=== PATIENT | male | born 1990 | race American Indian/Alaskan Native ===

== ENCOUNTER 2017-01-26 17:51 | Observation (INO) | payer MEDICAID, OTHER ==
[2017-01-26 17:51] VITALS: BMI 20.6
[2017-01-26 20:16] LABS: ALB/GLOB RATIO 1.6 (1.1-1.8); ALKALINE PHOSPHATASE 43 U/L (38-126); ALT/SGPT 59 U/L (7-56); AST/SGOT 35 U/L (17-59); BILIRUBIN,TOTAL 0.3 mg/dL (0.2-1.3); BLOOD UREA NITROGEN 17 mg/dL (7-21); CALCIUM 9.5 mg/dL (8.4-10.5); CARBON DIOXIDE 31 mmol/L (21-33); CHLORIDE 100 mmol/L (98-107); GFR AFRICAN-AMERICAN > 60; GLUCOSE,RANDOM 65 mg/dL (70-110); POTASSIUM 4.3 mmol/L (3.6-5.0); SODIUM 140 mmol/L (132-148); TOTAL PROTEIN 6.7 g/dL (5.8-8.3)
[2017-01-26 20:22] LABS: BASO # 0.04 K/mm3 (0.0-2.0); BASO % 0.8 % (0.0-3.0); EOS # 0.2 (0.0-0.7); EOS % 3.1 % (1.5-5.0); GRAN # 2.87 (1.4-6.5); GRAN % 59.2 % (50.0-68.0); HEMATOCRIT 43.2 % (42.0-52.0); LYMPH # 1.1 (1.2-3.4); LYMPH % 22.5 % (22.0-35.0); MEAN CELL VOLUME 84.7 fl (80.0-105.0); MEAN CORPUSCULAR HEMOGLOBIN 28.2 pg (25.0-35.0); MEAN CORPUSCULAR HGB CONC 33.3 g/dl (31.0-37.0); MONO # 0.7 (0.1-0.6); MONO % 14.4 % (1.0-6.0); RED CELL DISTRIBUTION WIDTH 13.5 % (11.5-14.5); WHITE BLOOD COUNT 4.9 10^3/ul (4.5-11.0)
--- NOTE | 2017-01-26 20:29 | ED PDOC ---
Arrival/HPI - General Chief Complaint: Palpitations Time Seen by Provider: 01/26/17 18:19 Historian: Patient - History of Present Illness Narrative History of Present Illness (Text): 01/26/17 20:30 27 yo M w/ h/o thrombocytopenia, who was admitted in the psych unit for acute psychosis, presents with c/o palpitations when he wakes up. Cardiology consult with Dr. Horowitz was obtained, and he requested that the patient be sent to the ER by Dr. Horowitz to be admitted to tele. Patient reports prior episodes of chest pain, none at this time. Also reports no palpitations at this time. Otherwise: (-) SOB, (-) diaphoresis, (-) dyspnea, (-) pleuritic component, (-) ripping or tearing quality, (-) positional component, (-) exertional component, (-) dizziness, (-) syncope, (-) nausea, (-) vomiting, (-) calf swelling/pain, (- ) neuro deficits. Past Medical History - Provider Review Nursing Documentation Reviewed: Yes - Infectious Disease Hx of Infectious Diseases: None - Cardiac Hx Cardiac Disorders: No Hx Hypertension: No - Pulmonary Hx Tuberculosis: No - Neurological HX Cerebrovascular Accident: No Hx Seizures: No - HEENT Hx HEENT Disorder: No - Renal Hx Renal Disorder: No - Endocrine/Metabolic Hx Endocrine Disorders: No - Hematological/Oncological Other/Comment: low platelets - Musculoskeletal/Rheumatological Hx Musculoskeletal Disorders: No - Gastrointestinal Hx Gastrointestinal Disorders: No - Genitourinary/Gynecological Hx Sexually Transmitted Diseases: No - Psychiatric Hx Anxiety: Yes Hx Substance Use: No - Anesthesia Hx Anesthesia: No Family/Social History - Physician Review Nursing Documentation Reviewed: Yes Family/Social History: No Known Family HX Smoking Status: Never Smoked Hx Alcohol Use: No Hx Substance Use: No Allergies/Home Meds Allergies/Adverse Reactions: Allergies No Known Allergies Allergy (Verified 01/26/17 18:01) Home Medications: Home Meds Medication Instructions Recorded Confirmed Acetaminophen [Tylenol 325mg tab] 650 mg PO Q4 PRN 01/26/17 01/26/17 Benztropine [Benztropine Mesylate] 2 mg PO BID 01/26/17 01/26/17 LORazepam [Ativan] 0.5 mg PO TID 01/26/17 01/26/17 Magnesium Hydroxide [Milk Of 30 ml PO PRN PRN 01/26/17 01/26/17 Magnesia] Mirtazapine [Remeron] 15 mg PO HS 01/26/17 01/26/17 Risperidone [Risperdal] 2 mg PO BID 01/26/17 01/26/17 Review of Systems - Review of Systems Constitutional: Normal. absent: Fatigue, Weight Change, Fevers Respiratory: Normal. absent: SOB, Cough, Sputum Cardiovascular: Normal, Chest Pain (prior chest pain). absent: Palpitations, Edema Musculoskeletal: Normal. absent: Arthralgias, Back Pain, Neck Pain Skin: Normal. absent: Rash, Pruritis, Skin Lesions Neurological: Normal, Headache (prior headahce). absent: Dizziness, Focal Weakness Psychiatric: Normal, Anxiety. absent: Depression, Suicidal Ideation Physical Exam - Physical Exam Narrative Physical Exam (Text): 01/26/17 20:29 GENERAL APPEARANCE: Patient is awake, alert, oriented x 3, (+) disorganized thoughts, needs to be constantly redirected, otherwise in no acute distress. SKIN: Warm, dry; (-) cyanosis. EYES: (-) conjunctival pallor. ENMT: Mucous membranes moist. NECK: (-) tenderness, (-) stiffness, (-) lymphadenopathy, (-) JVD. CHEST AND RESPIRATORY: (-) rash, (-) chest wall tenderness. Lungs: (-) rales , (-) rhonchi, (-) wheezes, (-) rub; breath sounds equal bilaterally. HEART AND CARDIOVASCULAR: (-) irregularity; (-) murmur, (-) gallop, (-) rub. ABDOMEN AND GI: Soft; (-) distention, (-) tenderness, (-) palpable pulsatile mass. EXTREMITIES: (-) deformity; (-) edema, (-) calf tenderness. (+) distal pulses. NEURO AND PSYCH: Mental status as above. Cranial nerves grossly intact; strength symmetric. Vital Signs Temp Pulse Resp BP Pulse Ox 01/26/17 18:00 97.7 F 90 18 111/60 98 Medical Decision Making ED Course and Treatment: 01/26/17 20:25 27 yo M who was admitted in the psych unit for acute psychosis, presents with c/ o palpitations when he wakes up. Patient was sent by Dr. Horowitz to the ER to be admitted to tele. Case d/w Dr. Horowitz, agrees with plan for inpatient tele observation. Requests for CMP, TSH and Echo to be done in the AM. Notified hospitalist of plan, case d/w Dr. Leon, agrees with plan. Plan: - Labs, including troponin - EKG - Echo EKG: NSR at 91 bpm, (-) acute ST changes, as read by PA. Patient and family notified of plan for inpatient telemetry observation, which the patient and family member agree to at this time. On re-evaluation, patient is resting comfortably in bed, has no chest pain, shortness of breath, palpitations, diaphoresis, dizziness or headache at this time. VSS. Labs reviewed : CBC plt 92, trop (-), TSH 2.3. Echo ordered for the AM. - Lab Interpretations Lab Results: 01/26/17 20:02 01/26/17 20:02 Lab Results 01/26/17 20:02: TSH 3rd Generation 2.35 01/26/17 20:02: Sodium 140, Potassium 4.3, Chloride 100, Carbon Dioxide 31, Anion Gap 13, BUN 17, Creatinine 1.1, Est GFR ( Amer) > 60, Est GFR (Non- Af Amer) > 60, Random Glucose 65 L, Calcium 9.5, Total Bilirubin 0.3, AST 35, ALT 59 H, Alkaline Phosphatase 43, Troponin I < 0.01, Total Protein 6.7, Albumin 4.1, Globulin 2.5, Albumin/Globulin Ratio 1.6 01/26/17 20:02: WBC 4.9, RBC 5.10, Hgb 14.4, Hct 43.2, MCV 84.7, MCH 28.2, MCHC 33.3, RDW 13.5, Plt Count 92 L, MPV 11.0, Gran % 59.2, Lymph % (Auto) 22.5, [place] % (Auto) 14.4 H, Eos % (Auto) 3.1, Baso % (Auto) 0.8, Gran # 2.87, Lymph # 1.[address], [place] # 0.7 H, Eos # 0.2, Baso # 0.04 - Medication Orders Current Medication Orders: Acetaminophen (Tylenol 325mg Tab) 650 mg PO Q4 PRN PRN Reason: Pain, moderate (4-7) Benztropine Mesylate (Cogentin) 2 mg PO BID ERASMO Lorazepam (Ativan) 0.5 mg PO TID ERASMO PRN Reason: Protocol Magnesium Hydroxide (Milk Of Magnesia) 30 ml PO PRN PRN PRN Reason: Constipation Mirtazapine (Remeron) 15 mg PO HS ERASMO Risperidone (Risperdal Tab) 2 mg PO BID ERASMO PRN Reason: Protocol - PA / ADVANCE AGENT / Resident Statement MD/DO has reviewed & agrees with the documentation as recorded. Disposition/Present on Arrival - Present on Arrival Any Indicators Present on Arrival: No History of DVT/PE: No History of Uncontrolled Diabetes: No Urinary Catheter: No History of Decub. Ulcer: No History Surgical Site Infection Following: None - Disposition Have Diagnosis and Disposition been Completed?: Yes Diagnosis: Anxiety, Heart palpitations, Chest pain Disposition: HOSPITALIZED Disposition Time: 19:00 Patient Plan: Telemetry Patient Problems: Current Active Problems Problem Status Onset Anxiety Acute Cannabis abuse Acute Chest pain Acute Heart palpitations Acute Substance-induced psychotic disorder with delusions Acute Unspecified psychosis Acute Condition: STABLE
[2017-01-26 20:47] LABS: TROPONIN I < 0.01 ng/mL
--- NOTE | 2017-01-26 21:24 | CP.PCM.HP ---
<KRISTIAN,MARK - Last Filed: 01/26/17 22:26> History of Present Illness - History of Present Illness History of Present Illness: cc: chest pain Mr. Vasquez is a 27 yo AAM with PMH thrombocytopenia, anxiety and depression who presents to ED from psych unit (was walked down by nurse) where he was admitted for the past 10 days c/o chest pain. Pt is a poor historian and had tangential speech. Pt states that he felt his heart racing after having 2 nightmares, which consisted of some family drama (mom fighting with brother of pt) that pt denies is happening in real life; when he felt his chest with his hand, he felt substernal pain that was sharp "like a slingshot hit him in the chest" and was at worst 5/10, worsening with breathing and "radiating to stomach"; pt states pain is now 3/10. Pt denied diaphoresis, sob. Pt states that he has not had an episode similar to this before, and that he is at baseline anxious about drama at his house between different family members. Pt states that he originally came into the hospital because he smoked marijuana (that he thinks was laced) and felt his "body shutting down". Pt denies fevers, chills, sob, cough, changes in vision, abdominal pain, changes in bowel habits, weakness, urinary complaints or numbness/tingling. 10-point ROS reviewed and otherwise unremarkable. PMH: none PsychHx: anxiety and ?depression (pt mentioned these) PSH: none Meds: states that Dr. Dominguez Beasley (heme) told him to stop taking prednisone which would hurt his bone marrow Allergies: NKDA SHx: states last ETOH and tobacco was month ago, last marijuana was right before admission, denies cocaine and heroin Present on Admission - Present on Admission Any Indicators Present on Admission: No History of DVT/PE: No History of Uncontrolled Diabetes: No Review of Systems - Review of Systems Systems not reviewed;Unavailable: Other (tangential thoughts and speech, unreliable historian) All systems: reviewed and no additional remarkable complaints except (as per HPI ) Past Patient History - Infectious Disease Hx of Infectious Diseases: None - Past Social History Smoking Status: Former Smoker (states last tobacco use was >1mo ago) Alcohol: Other (states last ETOH use was >1mo ago) Drugs: Cannabis Home Situation {Lives}: With Family (mom and brother) - CARDIAC Hx Cardiac Disorders: No Hx Hypercholesterolemia: No Hx Hypertension: No - PULMONARY Hx Respiratory Disorders: No Hx Tuberculosis: No - NEUROLOGICAL Hx Neurological Disorder: No HX Cerebrovascular Accident: No Hx Seizures: No - HEENT Hx HEENT Problems: No - RENAL Hx Chronic Kidney Disease: No - ENDOCRINE/METABOLIC Hx Endocrine Disorders: No - HEMATOLOGICAL/ONCOLOGICAL Hx Blood Disorders: Yes Other/Comment: thrombocytopenia - INTEGUMENTARY Hx Dermatological Problems: No - MUSCULOSKELETAL/RHEUMATOLOGICAL Hx Musculoskeletal Disorders: No - GASTROINTESTINAL Hx Gastrointestinal Disorders: No - GENITOURINARY/GYNECOLOGICAL Hx Genitourinary Disorders: No Hx Sexually Transmitted Disorders: No - PSYCHIATRIC Hx Psychophysiologic Disorder: Yes Hx Anxiety: Yes Hx Depression: Yes Hx Substance Use: Yes (marijuana) - SURGICAL HISTORY Hx Surgeries: No - ANESTHESIA Hx Anesthesia: No Meds Allergies/Adverse Reactions: Allergies Allergy/AdvReac Type Severity Reaction Status Date / Time No Known Allergies Allergy Verified 01/26/17 18:01 Physical Exam - Constitutional Appears: Well, No Acute Distress - Head Exam Head Exam: ATRAUMATIC, NORMAL INSPECTION, NORMOCEPHALIC - Eye Exam Eye Exam: Normal appearance, PERRL Pupil Exam: NORMAL ACCOMODATION - ENT Exam ENT Exam: Mucous Membranes Moist, Normal Exam - Neck Exam Neck exam: Positive for: Full Rom, Normal Inspection. Negative for: Lymphadenopathy, Tenderness, Thyromegaly - Respiratory Exam Respiratory Exam: Clear to Auscultation Bilateral, NORMAL BREATHING PATTERN. absent: Accessory Muscle Use, Chest Wall Tenderness, Rales, Rhonchi, Wheezes, Respiratory Distress - Cardiovascular Exam Cardiovascular Exam: Tachycardia, REGULAR RHYTHM, +S1, +S2. absent: Gallop, JVD , Rubs - GI/Abdominal Exam GI & Abdominal Exam: Normal Bowel Sounds, Soft. absent: Distended, Guarding, Rebound, Tenderness - Extremities Exam Extremities exam: Positive for: full ROM, normal inspection. Negative for: calf tenderness, pedal edema - Back Exam Back exam: NORMAL INSPECTION. absent: CVA tenderness (L), CVA tenderness (R) - Neurological Exam Neurological exam: Alert - Psychiatric Exam Psychiatric exam: Anxious, Flat Affect - Skin Skin Exam: Normal Color, Warm Results - Vital Signs Recent Vital Signs: Last Vital Signs Temp 97.7 F 01/26/17 18:00 Pulse 90 01/26/17 18:00 Resp 18 01/26/17 18:00 BP 111/60 01/26/17 18:00 Pulse Ox 98 01/26/17 18:00 - Labs Result Diagrams: 01/26/17 20:02 01/26/17 20:02 Assessment & Plan - Assessment and Plan (Free Text) Assessment: 27yo M PMH anxiety and substance abuse but no significant medial history presents to ED from Psych unit with complaints of chest pain and palpitations. Symptoms likely due to anxiety attack, r/o ACS, r/o thyrotoxicosis Plan: 1. Chest pain, currently resolved but r/o ACS - EKG in ED showed NSR with no acute ST changes. - Patient was tachycardic when examined bedside - Troponins x1 negative - Trend Troponins/EKG Q6H x2 to r/o ACS - Echo AM to evaluate valvular/anatomical causes - TSH normal - transport to tele for closer monitoring - ASA 81mg - VS q4H 2. Hypoglycemia - D50 x1amp - encourage eating - FS q4H 3. Thrombocytopenia, chronic - likely 2/2 ITP in absence of no clear hemorrhage 4. Hx Anxiety - cont Ativan ERASMO home dose 5. Hx Psych disorder - cont psych meds (Remeron, Risperidone, Congentin) HHD no fluids PTX/SCDs Patient was seen, evaluated and d/w attending, Dr. Edward Brar PGY1 - Date & Time Date: 01/26/17 Time: 22:26 <Adrien Leon Q - Last Filed: 01/27/17 01:10> Results - Vital Signs Recent Vital Signs: Last Vital Signs Temp 97.7 F 01/26/17 18:00 Pulse 86 01/27/17 00:32 Resp 16 01/27/17 00:32 BP 111/70 01/27/17 00:32 Pulse Ox 99 01/27/17 00:32 - Labs Result Diagrams: 01/26/17 20:02 01/26/17 20:02 Attending/Attestation - Attestation I have personally seen and examined this patient.: Yes I have fully participated in the care of the patient.: Yes I have reviewed all pertinent clinical information: Yes Notes (Text): 01/27/17 01:05 I agree with the above note and exam by the resident with the addition of the followin27 y/o male being placed on observation for palpitations as well as chest pain. Patient was noted as well to have an episode of SVT around 160 which broke with vagal maneuvers. TSH checked a week ago was normal; he is orderd for an echocardiogram to evaluate for structural heart disease and may require an EP study if his symptoms do not resolve. Cardiology consulted with Dr. Horowitz.
[2017-01-26] MEDS ORDERED: Dextrose 50% SYRINGE Inj (50 ml) IVP STA (22:25)
[2017-01-26] MEDS: Magnesium Hydroxide Susp 30 ml UD PO SCH (23:04)
[2017-01-27] MEDS: Pantoprazole 40 mg EC Tab PO SCH (05:12)
[2017-01-27] MEDS: Magnesium Hydroxide Susp 30 ml UD PO SCH (09:41)
--- NOTE | 2017-01-27 14:07 | PN ---
DATE: SUBJECTIVE: The patient is 27 years old male with no formal psychiatric history. The patient was using synthetic drug called [id number] and the patient came for evaluation of psychotic symptoms "my brain neurons are overwhelmed." The patient stayed in the psychiatric inpatient unit for past week and a half. The patient was started on Risperdal and Remeron. The patient complained that he had a chest pain and irregular heartbeats yesterday. Cardiology team was called. The patient was transferred to the telemetry unit. This check writer salesperson is following up on this patient at the morning time. The patient presented to be the same bizarre and guarded. The patient was observed staring at the flower bouquet in the hospital. The patient said that he feels that his heart is beating really fast and yesterday when medical team put pulse oximetry on his finger he was feeling that his heart is "beating 188 per second." The patient is hardly related and thought process is disorganized still. At the same time, the patient is pleasant, cooperative. No aggression and no agitation. This check writer salesperson will offer the patient to discontinue Risperdal and start, may be Zyprexa, may be Seroquel, but the patient said that Risperdal makes him feel better and this is helping him to clear his mind. There is no additional complaints at present moment. This check writer salesperson discussed the patient with the nursing staff. The patient is compliant with the medication and no behavioral issues. The patient is on aspirin, Cogentin at 1.5 mg 3 times a day, Remeron 15 mg at the nighttime, Protonix, and Risperdal 2 mg twice a day as scheduled. Labs reviewed. Vital signs reviewed and statement that the patient's pulse went to 188 per second, it is incorrect, which is obviously, but yesterday at the evening time the patient had pulses of 116. MENTAL STATUS EXAMINATION: As this check writer salesperson described above the patient alert, oriented, pleasant, and cooperative, intermittent eye contact. Speech was overinclusive, but not pressured. Thought process, circumstantial and tangential. Thought content, the patient denied visual, auditory, or tactile hallucinations, but obviously the patient is having a lot of somatic delusions. Please see this check writer salesperson's notes for more detailed information. The patient presented to be disorganized in his thoughts. The patient denied thoughts of harming himself or others. Denies intent or plan. Insight and judgment improving. Impulses are well controlled. IMPRESSION: 1. Rule out substance-induced psychosis. 2. Rule out schizophrenia spectrum disorder. 3. Lot of somatic delusions. 4. The patient is presently on medical site for evaluation of chest pain. PLAN: Continue current management. There is no QTc prolongation. Risperdal will be continued. Remeron will be continued. Atenolol will be continued. Cogentin will be continued. We will follow up and advise accordingly. Thank you very much for letting me to participate in the care of your patient. Valencia Guadalupe MD
--- NOTE | 2017-01-27 14:46 | CP.PCM.PN ---
<YgTon - Last Filed: 01/27/17 17:34> Subjective - Date & Time of Evaluation Date of Evaluation: 01/27/17 Time of Evaluation: 08:56 - Subjective Subjective: This patient was seen and examined at bedside. The patient still reports feeling palpitations when waking up this morning and that his "heart was going to 0". The patient overnight had a run of SVT (HR 160) that subsided with vagal maneuvers and was susbsequently admitted to the inpatient unit. The patient denies any chest pain, shortness of breath , lightheadedness, dizziness, changes in vision, numbness and tingling in the hands and feet, sore throat, or any other complaints. Objective - Vital Signs/Intake and Output Vital Signs (last 24 hours): Temp Pulse Resp BP Pulse Ox 97.4 F L 79 20 99/64 L 100 01/27/17 11:38 01/27/17 11:38 01/27/17 11:38 01/27/17 11:38 01/27/17 06:00 - Medications Medications: Current Medications Acetaminophen (Tylenol 325mg Tab) 650 mg PO Q4 PRN PRN Reason: Pain, moderate (4-7) Aspirin (Ecotrin) 81 mg PO DAILY [facility] Last Admin: 01/27/17 09:38 Dose: 81 mg Benztropine Mesylate (Cogentin) 2 mg PO BID [facility] Last Admin: 01/27/17 09:39 Dose: 2 mg Lorazepam (Ativan) 0.5 mg PO TID [facility] PRN Reason: Protocol Last Admin: 01/27/17 09:38 Dose: 0.5 mg Magnesium Hydroxide (Milk Of Magnesia) 30 ml PO DAILY [facility] Last Admin: 01/27/17 09:41 Dose: Not Given Mirtazapine (Remeron) 15 mg PO HS [facility] Last Admin: 01/26/17 23:27 Dose: 15 mg Pantoprazole Sodium (Protonix Ec Tab) 40 mg PO 0600 [facility] Last Admin: 01/27/17 05:12 Dose: 40 mg Risperidone (Risperdal Tab) 2 mg PO BID [facility] PRN Reason: Protocol Last Admin: 01/27/17 09:39 Dose: 2 mg - Head Exam Head Exam: ATRAUMATIC, NORMAL INSPECTION, NORMOCEPHALIC - Eye Exam Eye Exam: EOMI, Normal appearance, PERRL. absent: Periorbital tenderness Pupil Exam: NORMAL ACCOMODATION, PERRL. absent: Irregular - ENT Exam ENT Exam: Mucous Membranes Moist, Normal Exam, Normal Oropharynx - Neck Exam Neck Exam: Full ROM, Normal Inspection - Respiratory Exam Respiratory Exam: Clear to Ausculation Bilateral, NORMAL BREATHING PATTERN. absent: Chest Wall Tenderness, Respiratory Distress - Cardiovascular Exam Cardiovascular Exam: REGULAR RHYTHM, +S1, +S2. absent: Gallop, Rubs - GI/Abdominal Exam GI & Abdominal Exam: Soft, Normal Bowel Sounds. absent: Guarding, Rigid, Tenderness - Extremities Exam Extremities Exam: Full ROM. absent: Pedal Edema - Back Exam Back Exam: NORMAL INSPECTION. absent: paraspinal tenderness - Neurological Exam Neurological Exam: Alert, Awake, CN II-XII Intact - Psychiatric Exam Psychiatric exam: Normal Affect, Normal Mood - Skin Skin Exam: Dry, Intact. absent: Mottled, Vesicles Assessment and Plan - Assessment and Plan (Free Text) Assessment: 27yo M PMH anxiety and substance abuse but no significant medial history presents to ED from Psych unit with complaints of chest pain and palpitations. Symptoms likely due to anxiety attack, r/o ACS, r/o thyrotoxicosis. Plan: 1. Chest pain, currently resolved but r/o ACS - EKG in ED showed NSR with no acute ST changes. - Patient was no longer tachycardic. - Troponins x3 (-) - Echo AM ordered and pending. - TSH normal - continue ASA 81mg - VS q4H 2. Hypoglycemia - blood glucose 65. Will continue to monitor closely - Patient encouraged to eat. - FS q4H 3. 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 -Plt count 92 today. continue to monitor closely. 4. Hx Anxiety - cont Ativan ERASMO home dose 5. Hx Psych disorder -Dr. Birmingham's note appreciated. - cont psych meds (Remeron, Risperidone, Congentin). <Andrzej Rubi - Last Filed: 02/04/17 14:59> Objective - Vital Signs/Intake and Output Vital Signs (last 24 hours): Temp Pulse Resp BP Pulse Ox 98.5 F 90 16 115/70 95 01/28/17 12:00 01/28/17 12:00 01/28/17 12:00 01/28/17 12:00 01/28/17 06:00 Attending/Attestation - Attestation I have personally seen and examined this patient.: Yes I have fully participated in the care of the patient.: Yes I have reviewed all pertinent clinical information, including history, physical exam and plan: Yes Notes (Text): I have seen and examined the patient at bedside. Agree with the above note with the following additions/ exceptions: Briefly this is 27 year old male with history of anxiety, substance abuse, thrombocytopenia who was transferred from psych floor for evaluation of palpitations and chest pain. Patient is being monitored in tele floor. As per nurses patient had a brief period of svt which resolved on its own and he has been in NSR since then. Plan to place holter monitor today. Echo is pending. He has chronic thrombocytopenia which is stable. Upon discharge patient will follow up with PMD of choice. Dr Andrzej Rubi
--- NOTE | 2017-01-27 21:02 | CARD ---
APPROVED REPORT EKG Measurement Heart [id number] <Conclusion> Normal sinus rhythm Normal ECG
[2017-01-28] MEDS: Pantoprazole 40 mg EC Tab PO SCH (06:36)
[2017-01-28 07:13] VITALS: O2SAT 95
[2017-01-28] MEDS: Magnesium Hydroxide Susp 30 ml UD PO SCH (09:23)
--- NOTE | 2017-01-28 13:06 | CON ---
DATE: HISTORY OF PRESENT ILLNESS: The patient is a 27-year-old male with no formal psychiatric history, who is being followed on the medical floor by Psychiatry for bizarre thought process. I reviewed Dr. Guadalupe's note and met with the patient at bedside. The patient is known to me from my followup with him last weekend on the psychiatric inpatient unit. The patient does not recall me from this followup. He is fairly cooperative during the course of my interview. He is aware of current location, month, and year. He reports that his mood is "fine." He denies having any hallucinations, however, he still has delusions regarding his health issues, specifically, to discuss his brain, neurons, and states "I feel like I have better connective function now." The patient denies anger. He denies suicidal thoughts and he continues to take his medications on the unit and he denies having any side effects from them and he has generally been cooperative with staff members. He indicated that Risperdal "brings the numbness out of my mind", however, he will not elaborate on this statement in an effective clear manner. I agree with Dr. Guadalupe. He is guarded. Nonetheless he is pleasant, cooperative, and there has been no aggression or agitation. Vital signs are reviewed. They are 98.2, 119/65, 77, and 20 at 6 a.m. this morning. Labs were reviewed by this provider. Relevant psychiatric medications include Cogentin 2 mg b.i.d., Ativan 0.5 mg p.o. t.i.d., Remeron 15 mg at bedtime, and risperidone 2 mg p.o. b.i.d. IMPRESSION: 1. Rule out substance-induced psychosis. 2. Rule out schizophrenia spectrum disorder. PLAN: We will continue with current management. The patient continues to be delusional with a bizarre thought process; regarding his delusions, however, agreeable with treatment thus far on the medical floor. The patient should be transferred back to Psychiatry once he is medically cleared for a continued treatment. Ulysses Ojeda MD [facility] # [id number]
--- NOTE | 2017-01-28 13:26 | CP.PCM.DIS ---
<Senthil Ronquillo - Last Filed: 01/28/17 13:31> Provider - Provider Date of Admission: 01/26/17 20:18 Attending physician: Hilario Vela MD Time Spent in preparation of Discharge (in minutes): 45 Hospital Course - Lab Results Lab Results: Most Recent Lab Values WBC 4.9 10^3/ul (4.5-11.0) 01/26/17 20:02 RBC 5.10 10^6/uL (3.5-6.1) 01/26/17 20:02 Hgb 14.4 g/dL (14.0-18.0) 01/26/17 20:02 Hct 43.2 % (42.0-52.0) 01/26/17 20:02 MCV 84.7 fl (80.0-105.0) 01/26/17 20:02 MCH 28.2 pg (25.0-35.0) 01/26/17 20:02 MCHC 33.3 g/dl (31.0-37.0) 01/26/17 20:02 RDW 13.5 % (11.5-14.5) 01/26/17 20:02 Plt Count 92 10^3/uL (120.0-450.0) L 01/26/17 20:02 MPV 11.0 fl (7.0-11.0) 01/26/17 20:02 Gran % 59.2 % (50.0-68.0) 01/26/17 20:02 Lymph % (Auto) 22.5 % (22.0-35.0) 01/26/17 20:02 [place] % (Auto) 14.4 % (1.0-6.0) H 01/26/17 20:02 Eos % (Auto) 3.1 % (1.5-5.0) 01/26/17 20:02 Baso % (Auto) 0.8 % (0.0-3.0) 01/26/17 20:02 Gran # 2.87 (1.4-6.5) 01/26/17 20:02 Lymph # 1.1 (1.2-3.4) L 01/26/17 20:02 [place] # 0.7 (0.1-0.6) H 01/26/17 20:02 Eos # 0.2 (0.0-0.7) 01/26/17 20:02 Baso # 0.04 K/mm3 (0.0-2.0) 01/26/17 20:02 Sodium 140 mmol/L (132-148) 01/26/17 20:02 Potassium 4.3 mmol/L (3.6-5.0) 01/26/17 20:02 Chloride 100 mmol/L (98-107) 01/26/17 20:02 Carbon Dioxide 31 mmol/L (21-33) 01/26/17 20:02 Anion Gap 13 (10-20) 01/26/17 20:02 BUN 17 mg/dL (7-21) 01/26/17 20:02 Creatinine 1.1 mg/dL (0.5-1.4) 01/26/17 20:02 Est GFR ( Amer) > 60 01/26/17 20:02 Est GFR (Non-Af Amer) > 60 01/26/17 20:02 POC Glucose (mg/dL) 95 mg/dL (65-110) 01/27/17 01:09 Random Glucose 65 mg/dL (70-110) L 01/26/17 20:02 Calcium 9.5 mg/dL (8.4-10.5) 01/26/17 20:02 Total Bilirubin 0.3 mg/dL (0.2-1.3) 01/26/17 20:02 AST 35 U/L (17-59) 01/26/17 20:02 ALT 59 U/L (7-56) H 01/26/17 20:02 Alkaline Phosphatase 43 U/L (38-126) 01/26/17 20:02 Troponin I < 0.01 ng/mL 01/27/17 07:45 Total Protein 6.7 g/dL (5.8-8.3) 01/26/17 20:02 Albumin 4.1 g/dL (3.0-4.8) 01/26/17 20:02 Globulin 2.5 gm/dL 01/26/17 20:02 Albumin/Globulin Ratio 1.6 (1.1-1.8) 01/26/17 20:02 TSH 3rd Generation 2.35 mIU/mL (0.46-4.68) 01/26/17 20:02 - Hospital Course Hospital Course: This is a 27 yr old male a past medical history of substance abuse psychosis, thrombocytopenia and anxiety who was admitted for complaints of palpitations, chest pain, shortness of breath that occurred on 01/23. We ordered EKG and troponins. EKG was NSR with no acute ST changes. On 01/26 Patient continued to complain of chest pain and was admitted to medical service. Patient had an episode of SVT (HR 150/no rhythm strip recorded the run of SVT) overnight that subsided after vagal maneuvers were performed. Patient was seen by Cardiology on 01/27 and had his echo done on 01/28/17. Patient was subsequently discharged back to psych hospital on 01/28/17 after getting cleared by Cardiology. Discharge Exam - Head Exam Head Exam: ATRAUMATIC, NORMAL INSPECTION, NORMOCEPHALIC - Eye Exam Eye Exam: EOMI, Normal appearance, PERRL Pupil Exam: NORMAL ACCOMODATION, PERRL - ENT Exam ENT Exam: Mucous Membranes Moist, Normal Oropharynx - Respiratory Exam Respiratory Exam: Clear to PA & Lateral, NORMAL BREATHING PATTERN, UNREMARKABLE. absent: Accessory Muscle Use, Chest Wall Tenderness - Cardiovascular Exam Cardiovascular Exam: REGULAR RHYTHM, RRR, +S1, +S2. absent: Gallop, Rubs - GI/Abdominal Exam GI & Abdominal Exam: Normal Bowel Sounds, Soft, Unremarkable. absent: Firm, Guarding, Rigid - Back Exam Back exam: NORMAL INSPECTION. absent: CVA tenderness (L), CVA tenderness (R), paraspinal tenderness - Neurological Exam Neurological exam: Alert, CN II-XII Intact, Oriented x3 - Psychiatric Exam Psychiatric exam: Normal Affect, Normal Mood - Skin Skin Exam: Dry, Intact, Normal Color Discharge Plan - Follow Up Plan Condition: STABLE Disposition: TRANSF TO SNF Instructions: Atrial Tachycardia (DC) Additional Instructions: Patient is to return to Psych inpatient floor. Patient is to continue Psych med's per Psych consult note. Patient should follow up with PMD after being discharged from Psych inpatient unit. Patient should return to E.D. for any new or worsening symptoms. <Tashi LANE,Rodrigowadesusan - Last Filed: 01/30/17 14:28> Provider - Provider Date of Admission: 01/26/17 20:18 Attending physician: Hilario Vela MD Hospital Course - Lab Results Lab Results: Most Recent Lab Values WBC 4.9 10^3/ul (4.5-11.0) 01/26/17 20:02 RBC 5.10 10^6/uL (3.5-6.1) 01/26/17 20:02 Hgb 14.4 g/dL (14.0-18.0) 01/26/17 20:02 Hct 43.2 % (42.0-52.0) 01/26/17 20:02 MCV 84.7 fl (80.0-105.0) 01/26/17 20:02 MCH 28.2 pg (25.0-35.0) 01/26/17 20: MCHC 33.3 g/dl (31.0-37.0) 01/26/17 20: RDW 13.5 % (11.5-14.5) 01/26/17 20:02 Plt Count 92 10^3/uL (120.0-450.0) L 01/26/17 20:02 MPV 11.0 fl (7.0-11.0) 01/26/17 20:02 Gran % 59.2 % (50.0-68.0) 01/26/17 20:02 Lymph % (Auto) 22.5 % (22.0-35.0) 01/26/17 20:02 [place] % (Auto) 14.4 % (1.0-6.0) H 01/26/17 20:02 Eos % (Auto) 3.1 % (1.5-5.0) 01/26/17 20:02 Baso % (Auto) 0.8 % (0.0-3.0) 01/26/17 20:02 Gran # 2.87 (1.4-6.5) 01/26/17 20:02 Lymph # 1.1 (1.2-3.4) L 01/26/17 20:02 [place] # 0.7 (0.1-0.6) H 01/26/17 20:02 Eos # 0.2 (0.0-0.7) 01/26/17 20:02 Baso # 0.04 K/mm3 (0.0-2.0) 01/26/17 20:02 Sodium 140 mmol/L (132-148) 01/26/17 20:02 Potassium 4.3 mmol/L (3.6-5.0) 01/26/17 20:02 Chloride 100 mmol/L (98-107) 01/26/17 20:02 Carbon Dioxide 31 mmol/L (21-33) 01/26/17 20:02 Anion Gap 13 (10-20) 01/26/17 20:02 BUN 17 mg/dL (7-21) 01/26/17 20:02 Creatinine 1.1 mg/dL (0.5-1.4) 01/26/17 20:02 Est GFR ( Amer) > 60 01/26/17 20:02 Est GFR (Non-Af Amer) > 60 01/26/17 20:02 POC Glucose (mg/dL) 95 mg/dL (65-110) 01/27/17 01:09 Random Glucose 65 mg/dL (70-110) L 01/26/17 20:02 Calcium 9.5 mg/dL (8.4-10.5) 01/26/17 20:02 Total Bilirubin 0.3 mg/dL (0.2-1.3) 01/26/17 20:02 AST 35 U/L (17-59) 01/26/17 20:02 ALT 59 U/L (7-56) H 01/26/17 20:02 Alkaline Phosphatase 43 U/L (38-126) 01/26/17 20:02 Troponin I < 0.01 ng/mL 01/27/17 07:45 Total Protein 6.7 g/dL (5.8-8.3) 01/26/17 20:02 Albumin 4.1 g/dL (3.0-4.8) 01/26/17 20:02 Globulin 2.5 gm/dL 01/26/17 20:02 Albumin/Globulin Ratio 1.6 (1.1-1.8) 01/26/17 20:02 TSH 3rd Generation 2.35 mIU/mL (0.46-4.68) 01/26/17 20:02 Attending/Attestation - Attestation I have personally seen and examined this patient.: Yes I have fully participated in the care of the patient.: Yes I have reviewed all pertinent clinical information, including history, physical exam and plan: Yes Notes (Text): 01/30/17 14:23 Patient was seen and examined with medical service technician. Agreed with resident assessment and plan. 27 yrs old male with PMH thrombocytopenia, anxiety and depression was admitted to telemetry floor from Psychiatric floor for monitoring of tachycardia.Patient remain stable on telemetry , Case was discuss with , Patient will be discharged back to to Psychiatry today. Patient Platelet count is stable. Management plan was discussed in detail with patient Education was provided.
[2017-01-28 13:49] VITALS: BP 115/70; PULSE 90; RESP 16; TEMP 98.5
--- NOTE | 2017-01-28 16:34 | PN ---
DATE: SUBJECTIVE: The patient does report palpitation when he exerts himself. He denies any dizziness. Review of the monitor revealed the highest rate is in the 90s and in sinus rhythm. PHYSICAL EXAMINATION: VITAL SIGNS: Blood pressure 119/65, heart rate 77, temperature 98.5, respirations 20. HEENT: Normocephalic. NECK: No JVD. CHEST: Clear. HEART: S1 and S2 regular. ABDOMEN: Soft. EXTREMITIES: No edema. LABORATORY DATA: Three sets of troponins are negative. ASSESSMENT: 1. Palpitation. 2. Depression and anxiety. RECOMMENDATIONS: Continue current aspirin 81 mg once a day. Continue Cogentin, Ativan, Remeron and Risperdal. I will review the echocardiographic study that was performed today. Junito Horowitz MD
--- NOTE | 2017-01-30 15:09 | CON ---
REASON FOR CONSULTATION: Reported fast heartbeat, the patient is a very poor historian. HISTORY OF PRESENT ILLNESS: The patient is a 27-year-old male who has a history of depression, anxiety and thrombocytopenia. He was transferred from psych unit yesterday because of what the patient reported to feel his heart going fast and slow. It was reported to me by Dr. Rubi that the patient underwent carotid sinus massage to terminate tachycardia; however, the patient was not on telemetry monitoring, and there was no other documented risk at that time. The patient himself does not recall any prior history of abnormal heart rate and the patient did report a fainting episode few months ago but does not recall the symptoms at that time other than fainting. The patient denies any retrosternal chest pain. The patient's rhythm is normal sinus since the patient presentation to the telemetry last evening. SOCIAL HISTORY: The patient is a former smoker. MEDICATIONS: Ativan 0.5 mg t.i.d., Cogentin 2 mg p.o. twice a day, aspirin 81 mg once a day, milk of magnesia 30 mL daily, Remeron 15 mg at bedtime, Risperdal 2 mg p.o. twice a day. REVIEW OF SYSTEMS: No headache. No dizziness. No chest pain. No shortness of breath. No productive cough. PHYSICAL EXAMINATION: GENERAL: The patient is a young middle-aged male, who does not appear to be in acute distress at this time. VITAL SIGNS: Blood pressure 99/64, heart rate 79, temperature 97.4 and respirations 20. HEENT: Normocephalic. NECK: No JVD. CHEST: Clear. HEART: S1 and S2 regular. ABDOMEN: Soft. EXTREMITIES: No edema. LABORATORY DATA: Hemoglobin and hematocrit 14.4 and 43.2, white count and platelet count are 4.9 and 92,000 respectively. SMA-7 is within normal limits except glucose of 64. Three sets of troponins are negative. TSH level is within normal limit. EKG revealed normal sinus rhythm. ASSESSMENT: 1. Reported history of tachycardia; however, this was never documented, most likely the patient did experience sinus tachycardia; however, supraventricular arrhythmia should still be excluded. 2. Thrombocytopenia. 3. Depression and anxiety disorder. RECOMMENDATIONS: The case was discussed at length with the medical team including Dr. Rubi. The patient will be maintained on aspirin, Remeron and Risperdal therapy. I requested an echocardiogram and I recommended to perform 24 hour Holter monitor and keep telemetry monitoring for one more overnight. Junito Horowitz MD
--- NOTE | 2017-01-30 17:13 | CARD ---
APPROVED REPORT EXAM: Two-dimensional and M-mode echocardiogram with Doppler and color Doppler. INDICATION 2D DIMENSIONS IVSd0.8 (0.7-1.1cm)LVDd4.3 (3.9-5.9cm) PWd1.0 (0.7-1.1cm)LVDs2.5 (2.5-4.0cm) FS (%) 40.4 %LVEF (%)71.5 (>50%) M-Mode DIMENSIONS Left Atrium (MM)2.90 (2.5-4.0cm)Aortic Root3.20 (2.2-3.7cm) Aortic Cusp Exc.2.30 (1.5-2.0cm) Aortic Valve AoV Peak Qehkgpxg290.0cm/Quynh Peak GR.5mmHg Mitral Valve MV E Elbbbali38.5cm/sMV A Zbrvnhgc79.3cm/sE/A ratio1.4 TDI Lateral E' Peak V17.90cm/sMedial E' Peak V13.10cm/sE/Lateral E'4.3 E/Medial E'5.8 Tricuspid Valve TR Peak Fvjfhnmy229yt/sRAP [id number] Peak Gr.23mmHg [id number] LEFT VENTRICLE The left ventricle is normal size. There is normal left ventricular wall thickness. The left ventricular function is normal. The left ventricular ejection fraction is within the normal range. There is normal LV segmental wall motion. The left ventricular diastolic function is normal. RIGHT VENTRICLE The right ventricle is normal size. There is normal right ventricular wall thickness. The right ventricular systolic function is normal. ATRIA The left atrium size is normal. The right atrium size is normal. AORTIC VALVE The aortic valve is normal in structure. No aortic regurgitation is present. There is no aortic valvular stenosis. MITRAL VALVE The mitral valve is mildly thickened. There is no mitral valve regurgitation noted. There is no mitral valve stenosis. TRICUSPID VALVE The tricuspid valve is normal in structure. There is trace tricuspid regurgitation. GREAT VESSELS The aortic root is normal in size. The IVC is normal in size and collapses >50% with inspiration. PERICARDIAL EFFUSION There is no pericardial effusion. <Conclusion> The left ventricle is normal size. There is normal left ventricular wall thickness. The left ventricular function is normal. The left ventricular ejection fraction is within the normal range. There is normal LV segmental wall motion. The left ventricular diastolic function is normal.
== END 2017-01-28 17:28 | disposition home or self-care (01) ==
LOC: EDBD → ED 17:51 → ERH 20:18 → 2RNO 01-27 01:56
PROVIDERS: ADMIT Internal Medicine; ATTEND Internal Medicine
DX: I47.1 Supraventricular tachycardia (principal); D69.6 Thrombocytopenia, unspecified; F12.10 Cannabis abuse, uncomplicated; F32.89 Other specified depressive episodes; F19.959 Other psychoactive substance use, unspecified with psychoactive substance-induced psychotic disorder, unspecified; F22 Delusional disorders; Z79.82 Long term (current) use of aspirin; Z87.891 Personal history of nicotine dependence; Z79.899 Other long term (current) drug therapy; F41.9 Anxiety disorder, unspecified; R07.9 Chest pain, unspecified; E16.2 Hypoglycemia, unspecified
CPT/HCPCS: 36415; 80053; 82948; 84443; 84484; 85025; 93005; 93306; 99285; G0378

== ENCOUNTER 2017-01-28 17:31 | Inpatient (IN) | payer MEDICAID ==
[2017-01-28 18:44] VITALS: BMI 21.1
[2017-01-28] MEDS ORDERED: Magnesium Hydroxide Susp 30 ml UD PO PRN (18:44)
[2017-01-28] MEDS ORDERED: Alum-Mag Hydrox-Simethicone Susp (30 mL) PO PRN (18:44)
--- NOTE | 2017-01-28 20:03 | PCM.BM ---
<BriantkCandice guillen - Last Filed: 01/28/17 20:00> Treatment Plan Problems - Problems identified on initial assessmt substance Date Initiated: 01/28/17 Time Initiated: 20:00 Assessment reference: NA Status: Active altered thought process Date Initiated: 01/28/17 Time Initiated: 20:01 Assessment reference: NA Status: Active Treatment assets and liabiliti Patient Assests: adapts well, cooperative, self-reliant, ADL independent, physically healthy, good support system, negotiates basic needs, cognitively intact Patient Liabilities: substance abuse - Milieu Protocol Maintain good personal hygiene: daily Encourage regular showers, daily Remind patient to perform daily oral care, daily Assist patient to perform ADL's Maintain personal safety: daily Educate patient to report safety concerns to staff, daily Monitor environment for contraband/sharps Medication safety: Monitor for expected outcome, potential side effects: daily, Assess barriers to learning: daily, Assess readiness for medication education: daily Family Contact Family contact: Patient agrees to contact - Goals for Treatment Patient goals for treatment: Pt states " I need to feel better so I can get out of here." Discharge/Continuing Care - Education Needs Education Needs: Patient Medication, Patient Diagnosis/Disease Process, Patient Coping Skills, Patient Community resources, Patient Activities of Daily Living, Patient Personal Hygiene/Grooming - Discharge Discharge to:: Home <Ulysses Ojeda - Last Filed: 01/29/17 05:26> - Diagnosis (1) Anxiety Status: Chronic (2) Substance-induced psychotic disorder with delusions Status: Acute (3) Unspecified psychosis Status: Acute <Ana Luisa Corley - Last Filed: 01/30/17 13:28>
[2017-01-29 07:12] LABS: BASO # 0.04 K/mm3 (0.0-2.0); BASO % 0.7 % (0.0-3.0); EOS # 0.2 (0.0-0.7); EOS % 2.9 % (1.5-5.0); GRAN # 3.55 (1.4-6.5); GRAN % 63.9 % (50.0-68.0); HEMATOCRIT 41.8 % (42.0-52.0); LYMPH # 1.1 (1.2-3.4); LYMPH % 19.2 % (22.0-35.0); MEAN CELL VOLUME 83.9 fl (80.0-105.0); MEAN CORPUSCULAR HEMOGLOBIN 28.1 pg (25.0-35.0); MEAN CORPUSCULAR HGB CONC 33.5 g/dl (31.0-37.0); MEAN PLATELET VOLUME 10.2 fl (7.0-11.0); MONO # 0.7 (0.1-0.6); MONO % 13.3 % (1.0-6.0); RED CELL DISTRIBUTION WIDTH 13.4 % (11.5-14.5); WHITE BLOOD COUNT 5.6 10^3/ul (4.5-11.0)
--- NOTE | 2017-01-29 08:41 | PCM.PYCHPN ---
Psychiatric Progress Note - Psychiatric Progress Note Patient seen today, length of contact: 35 min Patient Chief Complaint: "I feel like my soul is about to come out of my body" Problems Identified/Issues Discussed: Please refer to Dr. Guadalupe's Initial Psychiatric Evaluation dated 01/18/17 for full assessment. Patient was transferred to medicine on 01/26/17 with complaints of chest pain and palpitations. Patient was cleared by cardiology and transferred back to psychiatry on 01/28/17 for treatment of delusions. I reviewed recent notes and met with patient at bedside. Patient is calm and superficially cooperative. Reports that he feels "in between". Affect is anxious , guarded and odd. States "I feel like my soul is about to come out of my body" . Patient remains disorganized and fixated about neurons and his brain. Denies AVH, wishes or suicidal thoughts. Responses are more relevant to questioning than last week and he requires less redirection from his psychotic fixations. Patient denies any new physical pain except ache in his knee joint. Tolerating medications and denies any side effects. There were no major behavioral issues since his transfer back to the unit. He has been cooperative and communicative with staff members. Diagnostic Results: Substance-induced psychotic disorder with delusions Unspecified psychosis Cannabis abuse Medication Change: No Medical Record Reviewed: Yes Mental Status Examination - Cognitive Function Orientation: Person, Place, Situation - Mood Mood: Anxious ("I feel like my soul is about to come out of my body") - Affect Affect: Flat - Speech Speech: Appropriate - Formal Thought Process Formal Thought Process: Delusions - Suicidal Ideation Suicidal Ideation: No - Homicidal Ideation Homicidal Ideation: No Goal/Treatment Plan - Goal/Treatment Plan Progress Toward Problem(s) and Goals/Treatment Plan: * c/w current tx and plan * c/w ativan 0.5 mg po tid for anxiety * c/w Risperdal 2 mg po bid for delusions and disorganization * c/w cogentin 2 mg po bid for EPS prophylaxis * c/w remeron 15 mg HS for depression * Vitals reviewed and noted below: Selected Entries 01/28/17 12:00 Temperature 98.5 F Pulse Rate 90 Respiratory 16 Rate Blood Pressure 115/70 * New weekend labs noted below: Laboratory Results - last 24 hr 01/29/17 01/29/17 07:07 07:07 WBC 5.6 RBC 4.98 Hgb 14.0 Hct 41.8 L MCV 83.9 MCH 28.1 MCHC 33.5 RDW 13.4 Plt Count 91 L MPV 10.2 Gran % 63.9 Lymph % (Auto) 19.2 L [place] % (Auto) 13.3 H Eos % (Auto) 2.9 Baso % (Auto) 0.7 Gran # 3.55 Lymph # 1.1 L [place] # 0.7 H Eos # 0.2 Baso # 0.04 TSH 3rd Generation 3.81
--- NOTE | 2017-01-29 15:41 | CP.PCM.CON ---
<Senthil Ronquillo - Last Filed: 01/29/17 15:42> History of Present Illness - History of Present Illness History of Present Illness: This is a 27 yr. old male who with a past medical history of thrombocytopenia, anxiety, depression, who we were consulted for in the Psychiatric unit. Patient has episodes of tangential speech and a questionable historian. Patient has been complaining of his head feeling funny and light. He also describes anxiety that he has in the morning right when he wakes up in the morning. The patient denies any of symptoms in conjunction with the complaint He says that his heart begins to race and feels "his heart jump up and down". The patient denies any lightheadedness, dizziness, abdominal pain, headache, constipation, diarrhea, numbness, tingling, changes in vision, SI, HI , or any other complaints. Patient was recently sent back to the the Psych unit on 01/28 from the inpatient unit after being cleared by Cardiology and his echocardiogram returning no abnormal findings. PMH:thrombocytopenia, anxiety, depression Psych hx: anxiety, depression PSH: None Meds: None Allergies: NKDA Shcx: Last marijuana usage was the night before being admitted to the hospital. Denies illict drug usage. Last EtOh and tobacco usage was a month ago. Review of Systems - Constitutional Constitutional: absent: Chills, Daytime Sleepiness, Headache - EENT Eyes: absent: Blurred Vision, Discharge, Loss of Peripheral Vision Nose/Mouth/Throat: As Per HPI - Cardiovascular Cardiovascular: As Per HPI - Respiratory Respiratory: As Per HPI - Gastrointestinal Gastrointestinal: As Per HPI - Musculoskeletal Musculoskeletal: As Per HPI - Integumentary Integumentary: As Per HPI - Neurological Neurological: As Per HPI - Psychiatric Psychiatric: As Per HPI - Endocrine Endocrine: As Per HPI - Hematologic/Lymphatic Hematologic: As Per HPI Past Patient History - Infectious Disease Hx of Infectious Diseases: None - Past Social History Smoking Status: Former Smoker - CARDIAC Hx Cardiac Disorders: No Hx Hypercholesterolemia: No Hx Hypertension: No - PULMONARY Hx Respiratory Disorders: No Hx Tuberculosis: No - NEUROLOGICAL Hx Neurological Disorder: No HX Cerebrovascular Accident: No Hx Seizures: No - HEENT Hx HEENT Problems: No - RENAL Hx Chronic Kidney Disease: No - ENDOCRINE/METABOLIC Hx Endocrine Disorders: No - HEMATOLOGICAL/ONCOLOGICAL Hx Blood Disorders: Yes Other/Comment: thrombocytopenia - INTEGUMENTARY Hx Dermatological Problems: No - MUSCULOSKELETAL/RHEUMATOLOGICAL Hx Falls: No - GASTROINTESTINAL Hx Gastrointestinal Disorders: No - GENITOURINARY/GYNECOLOGICAL Hx Genitourinary Disorders: No Hx Sexually Transmitted Disorders: No - PSYCHIATRIC Hx Substance Use: Yes - SURGICAL HISTORY Hx Surgeries: No - ANESTHESIA Hx Anesthesia: No Meds Allergies/Adverse Reactions: Allergies Allergy/AdvReac Type Severity Reaction Status Date / Time No Known Allergies Allergy Verified 01/26/17 18:01 - Medications Medications: Current Medications Acetaminophen (Tylenol 325mg Tab) 650 mg PO Q4 PRN PRN Reason: Pain, moderate (4-7) Al Hydrox/Mg Hydrox/Simethicone (Maalox Plus 30 Ml) 30 ml PO DAILY PRN PRN Reason: Upset Stomach Benztropine Mesylate (Cogentin) 2 mg PO BID [facility] Last Admin: 01/29/17 08:48 Dose: 2 mg Lorazepam (Ativan) 0.5 mg PO TID [facility] PRN Reason: Protocol Last Admin: 01/29/17 12:35 Dose: 0.5 mg Magnesium Hydroxide (Milk Of Magnesia) 30 ml PO DAILY PRN PRN Reason: Constipation Mirtazapine (Remeron) 15 mg PO HS [facility] Last Admin: 01/28/17 21:27 Dose: 15 mg Risperidone (Risperdal Tab) 2 mg PO BID [facility] PRN Reason: Protocol Last Admin: 01/29/17 08:47 Dose: 2 mg Physical Exam - Head Exam Head Exam: ATRAUMATIC, NORMAL INSPECTION, NORMOCEPHALIC - Eye Exam Eye Exam: EOMI, Normal appearance, PERRL Pupil Exam: NORMAL ACCOMODATION, PERRL - ENT Exam ENT Exam: Mucous Membranes Moist - Neck Exam Neck exam: Positive for: Normal Inspection - Respiratory Exam Respiratory Exam: Clear to Auscultation Bilateral, NORMAL BREATHING PATTERN. absent: Rales, Rhonchi - Cardiovascular Exam Cardiovascular Exam: REGULAR RHYTHM, RRR. absent: Rubs, +S1, +S2 - GI/Abdominal Exam GI & Abdominal Exam: Normal Bowel Sounds, Soft. absent: Firm, Guarding - Extremities Exam Extremities exam: Positive for: normal inspection - Back Exam Back exam: NORMAL INSPECTION. absent: paraspinal tenderness - Neurological Exam Neurological exam: Alert, CN II-XII Intact, Oriented x3 - Psychiatric Exam Psychiatric exam: Anxious - Skin Skin Exam: Dry, Intact, Normal Color Results - Vital Signs Recent Vital Signs: Last Vital Signs Temp 97.2 F L 01/29/17 10:00 Pulse 72 01/29/17 10:00 Resp 17 01/29/17 10:00 BP 123/73 01/29/17 10:00 Pulse Ox - Labs Result Diagrams: 01/29/17 07:07 Labs: Laboratory Results - last 24 hr 01/29/17 01/29/17 07:07 07:07 WBC 5.6 RBC 4.98 Hgb 14.0 Hct 41.8 L MCV 83.9 MCH 28.1 MCHC 33.5 RDW 13.4 Plt Count 91 L MPV 10.2 Gran % 63.9 Lymph % (Auto) 19.2 L [place] % (Auto) 13.3 H Eos % (Auto) 2.9 Baso % (Auto) 0.7 Gran # 3.55 Lymph # 1.1 L [place] # 0.7 H Eos # 0.2 Baso # 0.04 TSH 3rd Generation 3.81 Assessment & Plan - Assessment and Plan (Free Text) Assessment: This is a 27 yr. old male with a past medical history of thrombocytopenia, anxiety and depression who was admitted with palpitations. Plan: Patient was recently in the inpatient unit for tachycardia. Patient was blood work and echocardiogram, ekg came back normal. Patient also was seen by Cardiology before discharge who cleared him to return to the Psych unit yesterday 01/28. Thrombocytopenia -Platelets are stable.Advised patient to follow up with PMD within one week of discharge. Smoking Cessation -Patient strongly advised to decrease his smoking intake. Patient at this time refused to quit. Anxiety and Depression -Dr. [place] recommendations appreciated. -Advised to follow up as outpatient with Psychiatrist. This patient is medically stable and we are signing off. Feel free to consult us again in the future if needed. <Hilario Vela - Last Filed: 01/30/17 14:22> Meds - Medications Medications: Current Medications Acetaminophen (Tylenol 325mg Tab) 650 mg PO Q4 PRN PRN Reason: Pain, moderate (4-7) Al Hydrox/Mg Hydrox/Simethicone (Maalox Plus 30 Ml) 30 ml PO DAILY PRN PRN Reason: Upset Stomach Benztropine Mesylate (Cogentin) 2 mg PO BID [facility] Last Admin: 01/30/17 09:02 Dose: 2 mg Lorazepam (Ativan) 0.5 mg PO TID [facility] PRN Reason: Protocol Last Admin: 01/30/17 13:27 Dose: 0.5 mg Magnesium Hydroxide (Milk Of Magnesia) 30 ml PO DAILY PRN PRN Reason: Constipation Mirtazapine (Remeron) 15 mg PO HS [facility] Last Admin: 01/29/17 21:15 Dose: 15 mg Risperidone (Risperdal Tab) 2 mg PO BID [facility] PRN Reason: Protocol Last Admin: 01/30/17 09:03 Dose: 2 mg Results - Vital Signs Recent Vital Signs: Last Vital Signs Temp 97.6 F 01/30/17 07:24 Pulse 71 01/30/17 07:24 Resp 20 01/30/17 07:24 BP 123/77 01/29/17 16:34 Pulse Ox - Labs Result Diagrams: 01/29/17 07:07 01/29/17 16:00 Labs: Laboratory Results - last 24 hr 01/29/17 16:00 Sodium 137 Potassium 4.2 Chloride 102 Carbon Dioxide 26 Anion Gap 13 BUN 18 Creatinine 1.1 Est GFR ( Amer) > 60 Est GFR (Non-Af Amer) > 60 Random Glucose 76 Calcium 9.2 Total Bilirubin 0.2 AST 25 ALT 57 H Alkaline Phosphatase 40 Total Protein 6.0 Albumin 3.6 Globulin 2.4 Albumin/Globulin Ratio 1.5 Attending/Attestation - Attestation I have personally seen and examined this patient.: Yes I have fully participated in the care of the patient.: Yes I have reviewed all pertinent clinical information: Yes Notes (Text): 01/30/17 14:21 Attending note; Patient seen and examined with resident in the psychiatric floor. Patient is a 27-year-old male with a history of depression, thrombocytopenia was admitted on the medical floor for observation for tachycardia. Patient was evaluated by recycling program manager and cleared. Currently stable heart rate. No tachycardia noted. Patient is medically stable. Please reconsult as needed. Thank you for the courtesy of this consultation.
[2017-01-29 16:12] LABS: ALB/GLOB RATIO 1.5 (1.1-1.8); ALKALINE PHOSPHATASE 40 U/L (38-126); ALT/SGPT 57 U/L (7-56); AST/SGOT 25 U/L (17-59); BILIRUBIN,TOTAL 0.2 mg/dL (0.2-1.3); BLOOD UREA NITROGEN 18 mg/dL (7-21); CALCIUM 9.2 mg/dL (8.4-10.5); CARBON DIOXIDE 26 mmol/L (21-33); CHLORIDE 102 mmol/L (98-107); GFR AFRICAN-AMERICAN > 60; GLUCOSE,RANDOM 76 mg/dL (70-110); POTASSIUM 4.2 mmol/L (3.6-5.0); SODIUM 137 mmol/L (132-148)
--- NOTE | 2017-01-30 15:26 | PCM.PYCHPN ---
Psychiatric Progress Note - Psychiatric Progress Note Patient seen today, length of contact: 30min Patient Chief Complaint: "I feel like normal myself..." Problems Identified/Issues Discussed: Suicide/ homicide prevention, past psychiatric h/o, current psychiatric symptoms , medical problems, risk/benefits and alternatives of medications, medications compliance, coping strategies, substance abuse h/o, relapse prevention, importance of follow up with psychiatrist and therapist, discharge plan. Medical Problems: pt was transferred from the medical side, was cleared by medical and cardiology teams Diagnostic Results: 01/29/17 07:07 01/29/17 16:00 Lab Results 01/29/17 16:00: Sodium 137, Potassium 4.2, Chloride 102, Carbon Dioxide 26, Anion Gap 13, BUN 18, Creatinine 1.1, Est GFR ( Amer) > 60, Est GFR (Non- Af Amer) > 60, Random Glucose 76, Calcium 9.2, Total Bilirubin 0.2, AST 25, ALT 57 H, Alkaline Phosphatase 40, Total Protein 6.0, Albumin 3.6, Globulin 2.4, Albumin/Globulin Ratio 1.5 01/29/17 07:07: WBC 5.6, RBC 4.98, Hgb 14.0, Hct 41.8 L, MCV 83.9, MCH 28.1, MCHC 33.5, RDW 13.4, Plt Count 91 L, MPV 10.2, Gran % 63.9, Lymph % (Auto) 19.2 L, [place] % (Auto) 13.3 H, Eos % (Auto) 2.9, Baso % (Auto) 0.7, Gran # 3.55, Lymph # 1.1 L, [place] # 0.7 H, Eos # 0.2, Baso # 0.04 01/29/17 07:07: TSH 3rd Generation 3.81 Vital Signs Temp Pulse Resp BP 01/30/17 10:00 97.2 F L 76 16 123/72 01/30/17 07:24 97.6 F 71 20 01/29/17 16:34 82 123/77 01/29/17 10:00 97.2 F L 72 17 123/73 01/29/17 07:21 97.9 F 66 20 DSM 5 Symptoms Update: shortly pt is 27yo AAM, not know previous psych h/o, pt denied h/o, denied suicidal attempts, denied psych admissions, currently lives with mother and brother in [place], called 911 because of psychotic symptoms and feeling of "weak and overstimulated". pt was transferred to the medical side last week for evaluation of the chest pain and palpitations, was medically stable, was transferred back to the psych unit over the weekend. pt was seen and examined, discussed with team. pt presented with improved symptoms, said he feels "normal myself', pt is still oddly related, with thought process to be circumstantial, but overall better. pt denied been depressed, denied thoughts of harming self or others. insight into his substance abuse is improving, "I will never use any drugs..., I could feel worse...". Patient said that his symptoms are directly related to the synthetic marijuana what he was using before coming to the hospital. as per staff no aggression, no agitation, compliance with the medications Aims 0, no EPS. Impression: Rule out substance-induced psychosis Rule out first episode of schizophrenia Medication Change: No Medical Record Reviewed: Yes Consults ordered or reviewed: med followup appreciated Mental Status Examination - Cognitive Function Orientation: Person, Place, Situation Memory: Intact Attention: Poor (improvement) Concentration: Poor (improvement) Association: Loose Fund of Knowledge: WNL - Mood Mood: Anxious ("I feel normal myself") - Affect Affect: Constricted (but reactive, mood congruent) - Speech Speech: Appropriate - Formal Thought Process Formal Thought Process: Delusions (somatic) - Suicidal Ideation Suicidal Ideation: No - Homicidal Ideation Homicidal Ideation: No Goal/Treatment Plan - Goal/Treatment Plan Need for Continued Stay: Remain at risks for inpatient hospitalization, Severe depression anxiety, Discharge may exacerbated symptoms, Severe functional impairment Progress Toward Problem(s) and Goals/Treatment Plan: milieu/structure/supportive therapy risperdal 2mg po amhs for psychosis cogentin 2 mg po amhs for EPS prophylaxis remeron 15mg po hs for insomnia and possible depression SW evaluation collaterals will consider rehab will monitor closely medical f/u possible d/c tomorrow Estimated Date of D/C: 01/31/17
[2017-01-31 06:52] VITALS: BP 113/74; PULSE 74; RESP 20; TEMP 98
--- NOTE | 2017-01-31 13:56 | PCM.PYCHDC ---
Mental Status Examination - Mental Status Examination Orientation: Person, Place, Situation, Time Memory: Intact Mood: Neutral Affect: Constricted (but reactive and mood congruent) Speech: Appropriate Attention: Poor (with improvement) Concentration: Poor (with improvement) Association: Loose (seems to be chronic) Fund of Knowledge: WNL Formal Thought Process: Delusions (patient has a lot of somatic delusions for example that he is breathing needy Shell are sending some messages sent to his heart, but much improved) Description of patient's judgement and insight: Pt has improved insight into mental and medical illness, pt was compliant with medications and unit rules and regulations, pt was going to groups, was calm, cooperative, socially appropriate, no behavioral incidents, no agitation, no aggression. Psychotic Thoughts and Behaviors: Pt denied v/a/t hallucinations, denied paranoid ideations, pt does not appear to be psychotic, and thought process is goal directed. Suicidal Ideation: No Current Homicidal Ideation?: No Plan: pt adamantly denied thoughts of harming self or others denied intent or plan. Discharge Summary - Discharge Note Reason for Hospitalization: delusions, disorganized thoughts and behavior please see initial notes for more detailed information Psychiatric History (includes Medical, Family, Personal Hx): patient denied history of being admitted to the psychiatric inpatient unit Laboratory Data: 01/29/17 07:07 01/29/17 16:00 Lab Results 01/29/17 16:00: Sodium 137, Potassium 4.2, Chloride 102, Carbon Dioxide 26, Anion Gap 13, BUN 18, Creatinine 1.1, Est GFR ( Amer) > 60, Est GFR (Non- Af Amer) > 60, Random Glucose 76, Calcium 9.2, Total Bilirubin 0.2, AST 25, ALT 57 H, Alkaline Phosphatase 40, Total Protein 6.0, Albumin 3.6, Globulin 2.4, Albumin/Globulin Ratio 1.5 01/29/17 07:07: WBC 5.6, RBC 4.98, Hgb 14.0, Hct 41.8 L, MCV 83.9, MCH 28.1, MCHC 33.5, RDW 13.4, Plt Count 91 L, MPV 10.2, Gran % 63.9, Lymph % (Auto) 19.2 L, [place] % (Auto) 13.3 H, Eos % (Auto) 2.9, Baso % (Auto) 0.7, Gran # 3.55, Lymph # 1.1 L, [place] # 0.7 H, Eos # 0.2, Baso # 0.04 01/29/17 07:07: TSH 3rd Generation 3.81 Vital Signs Temp Pulse Resp BP 01/31/17 06:51 98 F 74 20 113/74 01/30/17 16:34 86 100/59 L 01/30/17 10:00 97.2 F L 76 16 123/72 01/30/17 07:24 97.6 F 71 20 01/29/17 16:34 82 123/77 01/29/17 10:00 97.2 F L 72 17 123/73 01/29/17 07:21 97.9 F 66 20 Consultations:: List each consultation separately and include: 1. Reason for request. 2. Findings. 3. Follow-up Consultations: med followup appreciated Nursing Home Administrator consultation appreciated Summary of Hospital Course include:: 1. Description of specific treatment plan utilized for patients during their course of treatmen. 2. Summarize the time- course for resolution of acute symptoms and/or regressed behaviors. 3. Describe issues identified and worked on during hospitalization. 4. Describe medication utilized. 5. Describe medical problems identified and treated. 6. Reassessment of suicide risk Summary of Hospital Course: shortly pt is 27yo AAM, not know previous psych h/o, pt denied h/o, denied suicidal attempts, denied psych admissions, currently lives with mother and brother in , called 911 because of psychotic symptoms and feeling of "weak and overstimulated". initially patient presented to be disorganized, psychotic, had poor personal hygiene, no eye contact, good ADLs. pt said that he was feeling "like my brain neurons are overstimulated, I was feeling numb, I had feeling that my heart was stimulated, I called 911", pt said all of his symptoms could be related to the fact that he smoked synthetic drug called AK47 two weeks ago, pt was not able to give an answer why he was experiencing all of the symptoms two weeks later. pt presented to be disorganized, psychotic, pt has a lot of nonspecific/somatic/ delusions which are "numbness through my body, overstimulation in my body". patient was started on Risperdal which was increased slowly to 2 mg twice a day for psychotic symptoms Cogentin was slowly increased to 2 mg twice a day for possible EPS Ativan 0.5 mg twice a day for anxiety Remeron 15 mg at the nighttime for depressive symptoms as well as for insomnia Patient tolerated medications well, no side effects observed or reported.aims 0 , no EPS. 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 Based on report patient was doing better was cleared by medical team and was discharged back to the psychiatric inpatient unit over the weekend. Overall patient improved, still has somatic delusions, but overall presented much better to compare with the time of admission. Collaterals were obtained from the patient's mother who came and visited him and who is here today to pick patient up, as per mother patient presented to be at his baseline, patient mother is willing to accept patient back home. patient insight into his secondary to drug use improved significantly, patient said that he was to better, does not want to use a synthetic Drugs, patient is willing to be followed up with outpatient psychiatrist, patient denied thoughts of harming himself or others, presented with much improvement with his symptoms. At the time of the discharge pt denied been depressed, denied thoughts of harming self or others, denied psychotic symptoms, and pt does not appeared to be psychotic, denied been anxious, pt is not in imminent danger to self or others, will be following up at outpatient clinic, information about follow up appointment, time and address provided to the pt, it is patient responsibility to follow up with outpatient clinic, PMD as well as specialists (see SW note for more detailed information). In case pt will need to obtain results of studies pending at discharge pt was provided with contact information of Psychiatric Inpatient unit [phone] as well as Medical Record Department [phone]. Counseling about substance abuse and cessation provided pt was provided with prescriptions for all of medications (please see medication reconciliation form) Pt was educated about safety plan in case of worsening of symptoms or in case of suicidal or homicidal ideation call 911 or go to the nearest ER, also was educated to take meds as prescribed and stay away from drugs, pt verbalized understanding. 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 Status: Acute (3) Unspecified psychosis Status: Acute - Final Diagnosis (DSM 5) Condition upon Discharge: GOOD Disposition: HOME/ ROUTINE Follow-up Treatment Plan: At the time of the discharge pt denied been depressed, denied thoughts of harming self or others, denied psychotic symptoms, and pt does not appeared to be psychotic, denied been anxious, pt is not in imminent danger to self or others, will be following up at outpatient clinic, information about follow up appointment, time and address provided to the pt, it is patient responsibility to follow up with outpatient clinic, PMD as well as specialists (see SW note for more detailed information). In case pt will need to obtain results of studies pending at discharge pt was provided with contact information of Psychiatric Inpatient unit [phone] as well as Medical Record Department [phone]. Counseling about substance abuse and cessation provided pt was provided with prescriptions for all of medications (please see medication reconciliation form) Pt was educated about safety plan in case of worsening of symptoms or in case of suicidal or homicidal ideation call 911 or go to the nearest ER, also was educated to take meds as prescribed and stay away from drugs, pt verbalized understanding. Prescriptions/Medication Reconciliation: Benztropine [Cogentin] 2 mg PO BID #30 tab LORazepam [Ativan] 0.5 mg PO BID #30 tab Mirtazapine [Remeron] 15 mg PO HS #14 tab risperiDONE [RisperDAL Tab] 2 mg PO BID #30 tab - Smoking Cessation Smoking Cessation Medication prescribed: No Reason for not providing: denied smoking - Antipsychotic Medications Pt discharged on 2 or more routine antipsychotic medications: No
== END 2017-01-31 13:44 | disposition home or self-care (01) | DRG 430 ==
LOC: EDBD → PSYC 17:31
PROVIDERS: ADMIT Psychiatry & Neurology Psychiatry; ATTEND Psychiatry & Neurology Psychiatry
DX: F20.81 Schizophreniform disorder (principal); F19.150 Other psychoactive substance abuse with psychoactive substance-induced psychotic disorder with delusions; D69.6 Thrombocytopenia, unspecified; F12.10 Cannabis abuse, uncomplicated; F32.9 Major depressive disorder, single episode, unspecified; F41.9 Anxiety disorder, unspecified

== ENCOUNTER 2017-04-23 07:51 | Inpatient (IN) | payer MEDICAID ==
[2017-04-23 07:51] VITALS: BMI 21.1
--- NOTE | 2017-04-23 08:07 | ED PDOC ---
Arrival/HPI - General Chief Complaint: Anxiety Time Seen by Provider: 04/23/17 07:53 Historian: Patient - History of Present Illness Narrative History of Present Illness (Text): 04/23/17 08:03 27 year old male, whose past medical history includes, thrombocytopenia, anxiety and depression, presents to the emergency department complaining of feeling anxious and nervous today. Patient reports he has daily dosage of medication that he is not compliant with. Patient denies any fevers, chills, chest pain, shortness of breath, abdominal pain, nausea, vomiting, diarrhea, back pain, neck pain, urinary/bowel changes, headache, dizziness, suicidal ideation, homicidal ideation, auditory/visual hallucinations, or any other complaint. PMD: Dr. Camacho Time/Duration: Other (today ) Symptom Onset: Gradual Symptom Course: Unchanged Activities at Onset: Light Context: Home Past Medical History - Provider Review Nursing Documentation Reviewed: Yes - Infectious Disease Hx of Infectious Diseases: None - Cardiac Hx Cardiac Disorders: No - Pulmonary Hx Respiratory Disorders: No - Neurological Hx Neurological Disorder: No - HEENT Hx HEENT Disorder: No - Renal Hx Renal Disorder: No - Endocrine/Metabolic Hx Endocrine Disorders: No - Hematological/Oncological Hx Blood Disorders: Yes Other/Comment: Thrombocytopenia - Integumentary Hx Dermatological Disorder: No - Musculoskeletal/Rheumatological Hx Musculoskeletal Disorders: No - Gastrointestinal Hx Gastrointestinal Disorders: No - Genitourinary/Gynecological Hx Genitourinary Disorders: No - Psychiatric Hx Anxiety: Yes Hx Depression: Yes Hx Substance Use: No - Anesthesia Hx Anesthesia: No Family/Social History - Physician Review Nursing Documentation Reviewed: Yes Family/Social History: No Known Family HX Smoking Status: Current Some Days Smoker Hx Alcohol Use: No Hx Substance Use: No Allergies/Home Meds Allergies/Adverse Reactions: Allergies No Known Allergies Allergy (Verified 04/23/17 12:07) Home Medications: Home Meds Medication Instructions Recorded Confirmed No Known Home Med 04/23/17 04/23/17 Review of Systems - Physician Review All systems were reviewed & negative as marked: Yes - Review of Systems Constitutional: absent: Fevers, Other (Chills) Respiratory: absent: SOB Cardiovascular: absent: Chest Pain Gastrointestinal: absent: Diarrhea, Nausea, Vomiting Genitourinary Male: absent: Dysuria, Frequency, Hematuria Musculoskeletal: absent: Back Pain, Neck Pain Neurological: absent: Headache, Dizziness Psychiatric: Anxiety. absent: Suicidal Ideation (/homicidal ideations), Other ( auditory/visual hallucinations) Physical Exam Vital Signs Reviewed: Yes Vital Signs Temp Pulse Resp BP Pulse Ox 04/23/17 10:00 98.2 F 80 18 122/70 97 04/23/17 08:08 98.8 F 74 18 116/60 98 Temperature: Afebrile Blood Pressure: Normal Pulse: Regular Respiratory Rate: Normal Appearance: Positive for: Well-Appearing, Non-Toxic Pain Distress: None Mental Status: Positive for: Alert and Oriented X 3 - Systems Exam Head: Present: Atraumatic, Normocephalic Pupils: Present: PERRL Extroacular Muscles: Present: EOMI Conjunctiva: Present: Normal Mouth: Present: Moist Mucous Membranes Neck: Present: Normal Range of Motion Respiratory/Chest: Present: Clear to Auscultation, Good Air Exchange. No: Respiratory Distress, Accessory Muscle Use Cardiovascular: Present: Regular Rate and Rhythm, Normal S1, S2. No: Murmurs Abdomen: Present: Normal Bowel Sounds. No: Tenderness, Distention, Peritoneal Signs Back: Present: Normal Inspection Upper Extremity: Present: Normal Inspection. No: Cyanosis, Edema Lower Extremity: Present: Normal Inspection. No: Edema Neurological: Present: GCS=15, CN II-XII Intact, Speech Normal Skin: Present: Warm, Dry, Normal Color. No: Rashes Psychiatric: Present: Alert, Oriented x 3, Normal Insight, Normal Concentration. No: Normal Affect (Flat Affect) Medical Decision Making ED Course and Treatment: 04/23/17 08:03 Impression: 27 year old male presents complaining of anxiety. Pt hx includes, thrombocytopenia, anxiety and depression Plan: -- EKG -- Labs -- Chest X-ray -- Urinalysis -- Reassess and disposition Prior Visits: Notes and results from previous visits were reviewed. Patient was last seen in the emergency department on 01/26/17 complaining of palpitations when he wakes up. Patient was admitted in the psych unit. Progress Notes: EKG shows NSR at [address]/T changes. Interpreted by me. PROCEDURE: Chest x-ray performed Dictator : Tanya Betancourt MD Report Date : 04/23/2017 08:19:45 IMPRESSION: No focal consolidation, significant pleural effusion, or definite pneumothorax identified. 04/23/17 09:43 Patient has been medical cleared and accepted to [facility] psych unit. - Lab Interpretations Lab Results: 04/23/17 08:15 04/23/17 08:15 Lab Results 04/23/17 08:50: Urine Opiates Screen Negative, Urine Methadone Screen Negative, Ur Barbiturates Screen Negative, Ur Phencyclidine Scrn Negative, Ur Amphetamines Screen Negative, U Benzodiazepines Scrn Negative, U Oth Cocaine Metabols Negative, U Cannabinoids Screen Negative 04/23/17 08:50: Urine Color Yellow, Urine Appearance Clear, Urine pH 6.0, Ur Specific [place] >= 1.030, Urine Protein Negative, Urine Glucose (UA) Negative, Urine Ketones Trace H, Urine Blood Negative, Urine Nitrate Negative, Urine Bilirubin Negative, Urine Urobilinogen 0.2, Ur Leukocyte Esterase Negative 04/23/17 08:15: Alcohol, Quantitative < 10 04/23/17 08:15: Salicylates < 1 L, Acetaminophen < 10.0 L 04/23/17 08:15: Sodium 142, Potassium 3.6, Chloride 106, Carbon Dioxide 28, Anion Gap 12, BUN 14, Creatinine 1.2, Est GFR ( Amer) > 60, Est GFR (Non- Af Amer) > 60, Random Glucose 94, Calcium 9.3, Total Bilirubin 0.5, AST 26, ALT 30, Alkaline Phosphatase 54, Total Protein 6.8, Albumin 4.0, Globulin 2.8, Albumin/Globulin Ratio 1.4 04/23/17 08:15: WBC 6.2, RBC 5.10, Hgb 14.4, Hct 42.3, MCV 82.9, MCH 28.2, MCHC 34.0, RDW 13.4, Plt Count 95 L, MPV 11.0, Gran % 56.2, Lymph % (Auto) 27.5, [place] % (Auto) 12.4 H, Eos % (Auto) 3.1, Baso % (Auto) 0.8, Gran # 3.49, Lymph # 1.7, [place] # 0.8 H, Eos # 0.2, Baso # 0.05 I have reviewed the lab results: Yes - RAD Interpretation Radiology Orders: 04/23/17 08:02 CHEST PORTABLE [RAD] Stat - EKG Interpretation Interpreted by ED Physician: Yes Type: 12 lead EKG - Scribe Statement The provider has reviewed the documentation as recorded by the David Woods Provider Scribe Attestation: All medical record entries made by the David were at my direction and personally dictated by me. I have reviewed the chart and agree that the record accurately reflects my personal performance of the history, physical exam, medical decision making, and the department course for this patient. I have also personally directed, reviewed, and agree with the discharge instructions and disposition. Disposition/Present on Arrival - Present on Arrival Any Indicators Present on Arrival: No History of DVT/PE: No History of Uncontrolled Diabetes: No Urinary Catheter: No History of Decub. Ulcer: No History Surgical Site Infection Following: None - Disposition Have Diagnosis and Disposition been Completed?: Yes Diagnosis: Schizophrenia Disposition: HOSPITALIZED Disposition Time: 12:30 Condition: STABLE
--- NOTE | 2017-04-23 08:21 | RAD ---
HISTORY: pysch COMPARISON: Chest x-ray performed 01/18/17 TECHNIQUE: Chest, one view. FINDINGS: LUNGS: No focal consolidation. Please note that chest x-ray has limited sensitivity for the detection of pulmonary masses. PLEURA: No significant pleural effusion identified. No definite pneumothorax . CARDIOVASCULAR: The cardiomediastinal silhouette appears within normal limits of size. OSSEOUS STRUCTURES: No acute osseous abnormality identified. VISUALIZED UPPER ABDOMEN: Unremarkable. OTHER FINDINGS: None. IMPRESSION: No focal consolidation, significant pleural effusion, or definite pneumothorax identified.
[2017-04-23 08:25] LABS: BASO # 0.05 K/mm3 (0.0-2.0); BASO % 0.8 % (0.0-3.0); EOS # 0.2 (0.0-0.7); EOS % 3.1 % (1.5-5.0); GRAN # 3.49 (1.4-6.5); GRAN % 56.2 % (50.0-68.0); HEMATOCRIT 42.3 % (42.0-52.0); LYMPH # 1.7 (1.2-3.4); LYMPH % 27.5 % (22.0-35.0); MEAN CELL VOLUME 82.9 fl (80.0-105.0); MEAN CORPUSCULAR HEMOGLOBIN 28.2 pg (25.0-35.0); MONO # 0.8 (0.1-0.6); MONO % 12.4 % (1.0-6.0); RED CELL DISTRIBUTION WIDTH 13.4 % (11.5-14.5); WHITE BLOOD COUNT 6.2 10^3/ul (4.5-11.0)
[2017-04-23 08:58] LABS: ALB/GLOB RATIO 1.4 (1.1-1.8); ALKALINE PHOSPHATASE 54 U/L (38-126); ALT/SGPT 30 U/L (7-56); AST/SGOT 26 U/L (17-59); BILIRUBIN,TOTAL 0.5 mg/dL (0.2-1.3); BLOOD UREA NITROGEN 14 mg/dL (7-21); CALCIUM 9.3 mg/dL (8.4-10.5); CARBON DIOXIDE 28 mmol/L (21-33); CHLORIDE 106 mmol/L (98-107); GFR AFRICAN-AMERICAN > 60; GLUCOSE,RANDOM 94 mg/dL (70-110); POTASSIUM 3.6 mmol/L (3.6-5.0); SODIUM 142 mmol/L (132-148); TOTAL PROTEIN 6.8 g/dL (5.8-8.3)
[2017-04-23 09:16] LABS: URINE BILIRUBIN NEGATIVE (NEGATIVE); URINE BLOOD NEGATIVE (NEGATIVE); URINE GLUCOSE (UA) NEGATIVE (NEGATIVE); URINE KETONE TRACE mg/dL (NEGATIVE); URINE LEUKOCYTE ESTERASE NEGATIVE Leu/uL (NEGATIVE); URINE PROTEIN NEGATIVE mg/dL (<30 mg/dL); URINE UROBILINOGEN 0.2 E.U./dL (<1 E.U./dL)
[2017-04-23 09:17] LABS: URINE APPEARANCE CLEAR (CLEAR); URINE COLOR YELLOW (YELLOW)
[2017-04-23 11:09] VITALS: O2SAT 97
--- NOTE | 2017-04-23 13:51 | PCM.BM ---
<Valencia Guadalupe - Last Filed: 04/24/17 14:50> - Diagnosis (1) Schizophreniform disorder Status: Acute Interventions: 04/24/17 09:12 Psychoeducation/psychotherapy Psychopharmacology/adjustment of medications as needed/ monitoring possible side effects Evaluate pt on daily basis Compliance with medications and follow up appointments discussed Long acting medication pt was noncompliant with medications Suicide and homicide risk assessment and prevention, coping strategies, safety plan Relapse prevention Reduction of symptoms Improve functional status Cognitive behavioral therapy as outpatient Family involvement Possible social skill training as outpatient 04/24/17 14:50 (2) Anxiety Status: Chronic Interventions: 04/24/17 09:12 Psychoeducation Psychopharmacology/adjustment of medications as needed/ monitoring possible side effects Evaluate pt on daily basis Discussion of importance of being compliant with medications and follow up appointments Suicide and homicide risk assessment and prevention, coping strategies, safety plan Reduction of symptoms Relaxation techniques and breathing exercises discussed with pt Improve functional status Family involvement Cognitive behavioral therapy as outpatient 04/24/17 14:51 <Ramiro Gold - Last Filed: 04/25/17 15:59> Treatment Plan Problems - Problems identified on initial assessmt Altered Thought Process Date Initiated: 04/23/17 Time Initiated: 13:49 Assessment reference: NA Status: Active Priority: 1 Depression Date Initiated: 04/23/17 Time Initiated: 13:49 Assessment reference: NA Status: Active Priority: 2 Anxiety Date Initiated: 04/23/17 Time Initiated: 13:50 Assessment reference: NA Status: Active Priority: 3 Medication Nonadherence Date Initiated: 04/23/17 Time Initiated: 13:50 Date resolved: 04/25/17 Assessment reference: NA Status: Active Priority: 4 Treatment assets and liabiliti Patient Assests: adapts well, cooperative, self-reliant, ADL independent, physically healthy, good support system, negotiates basic needs, cognitively intact - Milieu Protocol Maintain good personal hygiene: daily Encourage regular showers, daily Remind patient to perform daily oral care, daily Assist patient to perform ADL's Maintain personal safety: every shift Educate patient to report safety concerns to staff, every shift Monitor environment for contraband/sharps Medication safety: Monitor for expected outcome, potential side effects: every shift, Assess barriers to learning: every shift, Assess readiness for medication education: every shift Discharge/Continuing Care - Education Needs Education Needs: Patient Medication, Patient Diagnosis/Disease Process, Patient Coping Skills - Discharge Discharge Criteria: Tolerates medication w/o severe side effects, Normal sleep pattern Discharge to:: Home <Michelle Redmond - Last Filed: 04/28/17 10:07> Family Contact Family involvement: Family/SO is involved Family contact: Patient agrees to contact Family contacted how many times per week?: 2 Family contact comment: Pt's mother has visited pt on unit
[2017-04-23] MEDS ORDERED: Magnesium Hydroxide Susp 30 ml UD PO PRN (15:34)
[2017-04-23] MEDS ORDERED: Alum-Mag Hydrox-Simethicone Susp (30 mL) PO PRN (15:34)
--- NOTE | 2017-04-23 15:59 | CARD ---
APPROVED REPORT EKG Measurement Heart [id number] <Conclusion> Normal sinus rhythm Normal ECG
[2017-04-24 07:41] LABS: FREE T4 0.91 ng/dL (0.78-2.19)
[2017-04-24 07:55] LABS: THYROID STIMULATING HORMONE 1.09 mIU/mL (0.46-4.68)
[2017-04-24 08:23] LABS: CHOLESTEROL 129 mg/dL (130-200); GLUCOSE,FASTING 72 mg/dL (65-110)
--- NOTE | 2017-04-24 16:01 | PCM.PSYCH ---
Initial Psychiatric Evaluation - Initial Psychiatric Evaluation Type of Admission: Voluntary Legal Status: Capacity (patient has capacity to sign consent for treatment) Chief Complaint (in patient's own words): "I thought I had a heart attack" Patient's Reaction to Hospitalization: pt was admitted for evaluation of possible psychotic symptoms and anxiety, inability of function. Due to the severity of patients symptoms pt could not be maintained as outpatient setting, needs further evaluation and stabilization in acute psychiatric unit. History of Present Illness and Precipitating Events: shortly pt is 27yo AAM, h/o psychosis, [place] [facility] [place], pt denied h/o, denied suicidal attempts, currently lives with mother and brother in , pt came to the ED c/o anxiety, pt was noncompliant with medication follow-up appointments, pt has h/o somatic delusions "electric stimuli going through my brain and chest", at ED pt presented to be disorganized. due to pt's current symptoms, inability to function, pt needs admission to the psychiatric inpatient unit. pt was seen at the treatment team meeting, had poor personal hygiene, no eye contact, good ADLs. notes from previous admission reviewed, discussed with the nursing staff. pt said he was noncompliant with meds and f/u appt, with no explanation. pt reported to feel better while was on meds. pt has severe thought blocking, responding to internal stimuli. pt at times giggles inappropriately. pt denied using drugs, has h/o using K2, reported smoking one cigarette a day, counseling provided. pt denied being abused pt reported to feel anxious medical h/o: pt is relatively healthy, pt has h/o chest pain and one transfer to telemetry unit for observation pt was discharged on the following meds previous admisison: patient was started on Risperdal 2 mg twice a day for psychotic symptoms Cogentin 2 mg twice a day for possible EPS Ativan 0.5 mg twice a day for anxiety Remeron 15 mg at the nighttime for depressive symptoms as well as for insomnia meds were resumed by in call. 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 Family h/o: denied. denied assess to guns. 04/23/17 08:15 04/23/17 08:15 Lab Results 04/24/17 07:00: Fasting Glucose 72, Triglycerides 53, Cholesterol 129 L, LDL Cholesterol Direct 75, HDL Cholesterol 41 04/24/17 06:30: Free T4 0.91, TSH 3rd Generation 1.09 04/23/17 08:50: Urine Opiates Screen Negative, Urine Methadone Screen Negative, Ur Barbiturates Screen Negative, Ur Phencyclidine Scrn Negative, Ur Amphetamines Screen Negative, U Benzodiazepines Scrn Negative, U Oth Cocaine Metabols Negative, U Cannabinoids Screen Negative 04/23/17 08:50: Urine Color Yellow, Urine Appearance Clear, Urine pH 6.0, Ur Specific [place] >= 1.030, Urine Protein Negative, Urine Glucose (UA) Negative, Urine Ketones Trace H, Urine Blood Negative, Urine Nitrate Negative, Urine Bilirubin Negative, Urine Urobilinogen 0.2, Ur Leukocyte Esterase Negative 04/23/17 08:15: Alcohol, Quantitative < 10 04/23/17 08:15: Salicylates < 1 L, Acetaminophen < 10.0 L 04/23/17 08:15: Sodium 142, Potassium 3.6, Chloride 106, Carbon Dioxide 28, Anion Gap 12, BUN 14, Creatinine 1.2, Est GFR ( Amer) > 60, Est GFR (Non- Af Amer) > 60, Random Glucose 94, Calcium 9.3, Total Bilirubin 0.5, AST 26, ALT 30, Alkaline Phosphatase 54, Total Protein 6.8, Albumin 4.0, Globulin 2.8, Albumin/Globulin Ratio 1.4 04/23/17 08:15: WBC 6.2, RBC 5.10, Hgb 14.4, Hct 42.3, MCV 82.9, MCH 28.2, MCHC 34.0, RDW 13.4, Plt Count 95 L, MPV 11.0, Gran % 56.2, Lymph % (Auto) 27.5, [place] % (Auto) 12.4 H, Eos % (Auto) 3.1, Baso % (Auto) 0.8, Gran # 3.49, Lymph # 1.7, [place] # 0.8 H, Eos # 0.2, Baso # 0.05 Vital Signs Temp Pulse Pulse Resp BP Pulse Ox 04/24/17 07:49 97.9 F 70 22 101/59 L 04/23/17 13:43 64 16 04/23/17 10:00 98.2 F 80 18 122/70 97 04/23/17 08:08 98.8 F 74 18 116/60 98 Current Medications: Active Medications Generic Name Dose Route Start Last Admin Trade Name Freq PRN Reason Stop Dose Admin Acetaminophen 650 mg 04/23/17 15:33 Tylenol 325mg Tab PO Q6H PRN Pain, moderate (4-7) Al Hydrox/Mg Hydrox/Simethicone 30 ml 04/23/17 15:34 Maalox Plus 30 Ml PO DAILY PRN Indigestion / Heartburn Benztropine Mesylate 1 mg 04/23/17 16:00 04/24/17 08:53 Cogentin PO 1 mg BID ERASMO Administration Lorazepam 0.5 mg 04/23/17 16:00 04/24/17 08:53 Ativan PO 0.5 mg BID ERASMO Administration Protocol Magnesium Hydroxide 30 ml 04/23/17 15:34 Milk Of Magnesia PO DAILY PRN Constipation Mirtazapine 15 mg 04/23/17 22:00 04/23/17 22:31 Remeron PO 15 mg HS ERASMO Administration Risperidone 1 mg 04/23/17 16:00 04/24/17 08:53 Risperdal Tab PO 1 mg BID ERASMO Administration Protocol Past Psychiatric History - Past Psychiatric History Previous Treatment History: Inpatient Prior Professional Help: two previous psychiatric admissions to this facility Prior Psychiatric Treatment: med management [facility] [facility] Duration: three days Nature of Treatment: med management History of Abuse: denied History of ETOH/Drug Use: denied History of Family Illness: denied Pertinent Medical Hx (Current Medical&Sleep Prob, Allergies): Allergies Allergy/AdvReac Type Severity Reaction Status Date / Time No Known Allergies Allergy Verified 04/23/17 12:07 No Known Home Med 04/23/17 pt was d/c on cogentin risperdal ativan but as report pt was noncompliant with it Review of Systems - Review of Systems Systems not reviewed;Unavailable: Acuity of Condition - EENT Eyes: As Per HPI Ears: As Per HPI Nose/Mouth/Throat: As Per HPI - Cardiovascular Cardiovascular: As Per HPI - Respiratory Respiratory: As Per HPI - Gastrointestinal Gastrointestinal: As Per HPI - Genitourinary Genitourinary: As Per HPI - Reproductive: Male Reproductive:Male: As Per HPI - Musculoskeletal Musculoskeletal: As Par HPI - Integumentary Integumentary: As Per HPI - Neurological Neurological: As Per HPI - Psychiatric Psychiatric: As Per HPI - Endocrine Endocrine: As Per HPI - Hematologic/Lymphatic Hematologic: As Per HPI Mental Status Examination - Personal Presentation Personal Presentation: Looks stated age - Affect Affect: Constricted, Flat - Motor Activity Motor Activity: Calm, Psychomotor Retardation - Reliability in Providing Information Reliability in Providing Information: Poor, due to alteration in thoughts - Speech Speech: Disorganized - Mood Mood: Depressed, Anxious - Formal Thought Process Formal Thought Process: Hallucinations, Delusions, Paranoia - Obsessions/Compulsions Obsessions: None Compulsions: None - Cognitive Functions Orientation: Person, Place, Situation Sensorium: Alert Attention/Concentration: Easily distracted Abstract Thinking: [place] Estimate of Intelligence: Below average Judgement: Intact, as evidence by: Insight regarding need for hospitalization - Risk Risk: Self-mutilation, Diminished functioning - Strength & Assets Inventory Strength & Assets Inventory: Family support, Cooperative, Other (good insight) - Limitations Limitations: Other (meds noncompliance) DSM 5 DX - DSM 5 DSM 5 Diagnosis: schizophreniform r/o schizophrenia r/o OCTAVIA - Recommended/Plan of Treatment Treatment Recommendations and Plan of Treatment: Milieu/structure/supportive therapy Medical consult was called consultation for discharge plan and social issues Med management ripserdal was resumed 1mg po bid for psychosis and mood stabilization cogentin 1mg po bid for possible EPS remeron 15mg po hs for mood and insomnia ativan 0.5mg po bid for anxiety Family involvement Follow up on labs Will monitor closely evaluation for d/c planning Pt was educated about risk/benefits and alternatives of medications, coping strategies (safety plan, suicide prevention), relapse prevention, importance of follow up with psychiatrist and therapist, stay away from drugs/alcohol/smoking Projected ELOS: 7days Prognosis: fair Discharge Plan and Discharge Criteria: Pt will be not depressed or manic, will be more hopeful, will be not psychotic or anxious, will be not having thoughts of harming self or others, will be tolerating medications well, will not have major side effects, will be able to function, will not pose threat to self or others. - Smoking Cessation Smoking Cessation Initiated: Yes Reason for not providing: smokes one cigarette a day
--- NOTE | 2017-04-25 14:12 | PCM.PYCHPN ---
Psychiatric Progress Note - Psychiatric Progress Note Patient seen today, length of contact: 30min Patient Chief Complaint: "too much air when I breath in, but not when I breath out" Problems Identified/Issues Discussed: Suicide/ homicide prevention, past psychiatric h/o, current psychiatric symptoms , medical problems, risk/benefits and alternatives of medications, medications compliance, coping strategies, substance abuse h/o, relapse prevention, importance of follow up with psychiatrist and therapist, discharge plan. Medical Problems: pt seems to be healthy, but last admission pt was transferred to telemetry unit for observation. medical team will be called Diagnostic Results: 04/23/17 08:15 04/23/17 08:15 Lab Results 04/24/17 07:00: Fasting Glucose 72, Triglycerides 53, Cholesterol 129 L, LDL Cholesterol Direct 75, HDL Cholesterol 41 04/24/17 06:30: RPR Nonreactive 04/24/17 06:30: Free T4 0.91, TSH 3rd Generation 1.09 04/23/17 08:50: Urine Opiates Screen Negative, Urine Methadone Screen Negative, Ur Barbiturates Screen Negative, Ur Phencyclidine Scrn Negative, Ur Amphetamines Screen Negative, U Benzodiazepines Scrn Negative, U Oth Cocaine Metabols Negative, U Cannabinoids Screen Negative 04/23/17 08:50: Urine Color Yellow, Urine Appearance Clear, Urine pH 6.0, Ur Specific [place] >= 1.030, Urine Protein Negative, Urine Glucose (UA) Negative, Urine Ketones Trace H, Urine Blood Negative, Urine Nitrate Negative, Urine Bilirubin Negative, Urine Urobilinogen 0.2, Ur Leukocyte Esterase Negative 04/23/17 08:15: Alcohol, Quantitative < 10 04/23/17 08:15: Salicylates < 1 L, Acetaminophen < 10.0 L 04/23/17 08:15: Sodium 142, Potassium 3.6, Chloride 106, Carbon Dioxide 28, Anion Gap 12, BUN 14, Creatinine 1.2, Est GFR ( Amer) > 60, Est GFR (Non- Af Amer) > 60, Random Glucose 94, Calcium 9.3, Total Bilirubin 0.5, AST 26, ALT 30, Alkaline Phosphatase 54, Total Protein 6.8, Albumin 4.0, Globulin 2.8, Albumin/Globulin Ratio 1.4 04/23/17 08:15: WBC 6.2, RBC 5.10, Hgb 14.4, Hct 42.3, MCV 82.9, MCH 28.2, MCHC 34.0, RDW 13.4, Plt Count 95 L, MPV 11.0, Gran % 56.2, Lymph % (Auto) 27.5, [place] % (Auto) 12.4 H, Eos % (Auto) 3.1, Baso % (Auto) 0.8, Gran # 3.49, Lymph # 1.7, [place] # 0.8 H, Eos # 0.2, Baso # 0.05 Vital Signs Temp Pulse Pulse Resp BP Pulse Ox 04/25/17 07:53 98.3 F 83 16 100/63 04/24/17 16:00 70 105/67 04/24/17 07:49 97.9 F 70 22 101/59 L 04/23/17 13:43 64 16 04/23/17 10:00 98.2 F 80 18 122/70 97 04/23/17 08:08 98.8 F 74 18 116/60 98 DSM 5 Symptoms Update: shortly pt is 27yo AAM, h/o psychosis, one previous psychiatric admission to [facility] about a month ago, pt denied h/o, denied suicidal attempts, currently lives with mother and brother in , pt came to the ED c/o anxiety, pt was noncompliant with medication follow-up appointments, pt has h/o somatic delusions "electric stimuli going through my brain and chest", at ED pt presented to be disorganized. pt was seen at the TV are, pt still disorganized, thought blocking, poverty of thoughts, pt said that he has some sensation when he is breathing "too much air when I breath in, but not when I breath out". as per staff pt is compliant with meds, no agitation or aggression. she reported that he was noncompliant with the medications after discharge, when was asked the reason patient said "I was too busy helping my mom and my brother" patient had no explanation what kind of help he was providing for his family. pt's goal for treatment: "I want to feel better and improve", pt was not able to express what he mean by this statement. pt denied using drugs, has h/o using K2, reported smoking one cigarette a day, counseling provided. pt denied being abused pt reported to feel anxious medical h/o: pt is relatively healthy, pt has h/o chest pain and one transfer to telemetry unit for observation DSM 5 Diagnosis: schizophreniform r/o schizophrenia r/o OCTAVIA Medication Change: Yes (meds resumed) Medical Record Reviewed: Yes Consults ordered or reviewed: medical consult was called Mental Status Examination - Cognitive Function Orientation: Person, Place, Situation Memory: Impaired Attention: Poor Concentration: Poor Association: Loose Fund of Knowledge: Poor - Mood Mood: Depressed, Anxious - Affect Affect: Constricted, Flat - Formal Thought Process Formal Thought Process: Hallucinations, Delusions, Paranoia - Suicidal Ideation Suicidal Ideation: No - Homicidal Ideation Homicidal Ideation: No Goal/Treatment Plan - Goal/Treatment Plan Need for Continued Stay: Remain at risks for inpatient hospitalization, Severe depression anxiety, Discharge may exacerbated symptoms, Failed transitioning, Severe functional impairment Progress Toward Problem(s) and Goals/Treatment Plan: Milieu/structure/supportive therapy Medical consult was called consultation for discharge plan and social issues Med management ripserdal was resumed 1mg po bid for psychosis and mood stabilization cogentin 1mg po bid for possible EPS remeron 15mg po hs for mood and insomnia ativan 0.5mg po bid for anxiety Family involvement Follow up on labs Will monitor closely evaluation for d/c planning Pt was educated about risk/benefits and alternatives of medications, coping strategies (safety plan, suicide prevention), relapse prevention, importance of follow up with psychiatrist and therapist, stay away from drugs/alcohol/smoking Estimated Date of D/C: 04/28/17
[2017-04-26 09:44] LABS: HEMATOCRIT 44.1 % (42.0-52.0); MEAN CELL VOLUME 83.8 fl (80.0-105.0); MEAN CORPUSCULAR HEMOGLOBIN 27.8 pg (25.0-35.0); MEAN CORPUSCULAR HGB CONC 33.1 g/dl (31.0-37.0); MEAN PLATELET VOLUME 11.1 fl (7.0-11.0); RED CELL DISTRIBUTION WIDTH 13.7 % (11.5-14.5); WHITE BLOOD COUNT 6.5 10^3/ul (4.5-11.0)
[2017-04-26 10:26] LABS: SODIUM 142 mmol/L (132-148)
[2017-04-26 10:27] LABS: ALT/SGPT 41 U/L (7-56)
[2017-04-26 12:43] LABS: ALB/GLOB RATIO 1.6 (1.1-1.8); ALKALINE PHOSPHATASE 64 U/L (38-126); AST/SGOT 34 U/L (17-59); BILIRUBIN,TOTAL 0.5 mg/dL (0.2-1.3); BLOOD UREA NITROGEN 12 mg/dL (7-21); CALCIUM 9.7 mg/dL (8.4-10.5); CARBON DIOXIDE 30 mmol/L (21-33); CHLORIDE 103 mmol/L (98-107); GFR AFRICAN-AMERICAN > 60; GLUCOSE,RANDOM 84 mg/dL (70-110); TOTAL PROTEIN 6.9 g/dL (5.8-8.3)
--- NOTE | 2017-04-26 13:15 | PCM.PYCHPN ---
Psychiatric Progress Note - Psychiatric Progress Note Patient seen today, length of contact: 30min Patient Chief Complaint: "I feel closer to normal myself..." Problems Identified/Issues Discussed: Suicide/ homicide prevention, past psychiatric h/o, current psychiatric symptoms , medical problems, risk/benefits and alternatives of medications, medications compliance, coping strategies, substance abuse h/o, relapse prevention, importance of follow up with psychiatrist and therapist, discharge plan. Medical Problems: pt seems to be healthy, but last admission pt was transferred to telemetry unit for observation. medical team evaluated pt today, discussed with 04/26/17 no acute medical issues. Diagnostic Results: 04/23/17 08:15 04/23/17 08:15 Lab Results 04/24/17 07:00: Fasting Glucose 72, Triglycerides 53, Cholesterol 129 L, LDL Cholesterol Direct 75, HDL Cholesterol 41 04/24/17 06:30: RPR Nonreactive 04/24/17 06:30: Free T4 0.91, TSH 3rd Generation 1.09 04/23/17 08:50: Urine Opiates Screen Negative, Urine Methadone Screen Negative, Ur Barbiturates Screen Negative, Ur Phencyclidine Scrn Negative, Ur Amphetamines Screen Negative, U Benzodiazepines Scrn Negative, U Oth Cocaine Metabols Negative, U Cannabinoids Screen Negative 04/23/17 08:50: Urine Color Yellow, Urine Appearance Clear, Urine pH 6.0, Ur Specific [place] >= 1.030, Urine Protein Negative, Urine Glucose (UA) Negative, Urine Ketones Trace H, Urine Blood Negative, Urine Nitrate Negative, Urine Bilirubin Negative, Urine Urobilinogen 0.2, Ur Leukocyte Esterase Negative 04/23/17 08:15: Alcohol, Quantitative < 10 04/23/17 08:15: Salicylates < 1 L, Acetaminophen < 10.0 L 04/23/17 08:15: Sodium 142, Potassium 3.6, Chloride 106, Carbon Dioxide 28, Anion Gap 12, BUN 14, Creatinine 1.2, Est GFR ( Amer) > 60, Est GFR (Non- Af Amer) > 60, Random Glucose 94, Calcium 9.3, Total Bilirubin 0.5, AST 26, ALT 30, Alkaline Phosphatase 54, Total Protein 6.8, Albumin 4.0, Globulin 2.8, Albumin/Globulin Ratio 1.4 04/23/17 08:15: WBC 6.2, RBC 5.10, Hgb 14.4, Hct 42.3, MCV 82.9, MCH 28.2, MCHC 34.0, RDW 13.4, Plt Count 95 L, MPV 11.0, Gran % 56.2, Lymph % (Auto) 27.5, [place] % (Auto) 12.4 H, Eos % (Auto) 3.1, Baso % (Auto) 0.8, Gran # 3.49, Lymph # 1.7, [place] # 0.8 H, Eos # 0.2, Baso # 0.05 Vital Signs Temp Pulse Pulse Resp BP Pulse Ox 04/25/17 07:53 98.3 F 83 16 100/63 04/24/17 16:00 70 105/67 04/24/17 07:49 97.9 F 70 22 101/59 L 04/23/17 13:43 64 16 04/23/17 10:00 98.2 F 80 18 122/70 97 04/23/17 08:08 98.8 F 74 18 116/60 98 DSM 5 Symptoms Update: shortly pt is 27yo AAM, h/o psychosis, one previous psychiatric admission to [facility] about a month ago, pt denied h/o, denied suicidal attempts, currently lives with mother and brother in , pt came to the ED c/o anxiety, pt was noncompliant with medication follow-up appointments, pt has h/o somatic delusions "electric stimuli going through my brain and chest", at ED pt presented to be disorganized. pt was seen at the TV area, pt still disorganized, thought blocking, poverty of thoughts, pt said he feels "better, closer to normal myself". pt is odd, still has sensation "too much air in my lungs". as per staff pt is compliant with meds, no agitation or aggression. pt's goal for treatment: "I want to feel better and improve", pt was not able to express what he mean by this statement. pt denied using drugs, has h/o using K2, reported smoking one cigarette a day, counseling provided. pt tolerates medications well, no side effects observed or reported. DSM 5 Diagnosis: schizophreniform r/o schizophrenia r/o OCTAVIA Medication Change: Yes (meds resumed) Medical Record Reviewed: Yes Mental Status Examination - Cognitive Function Orientation: Person, Place, Situation Memory: Impaired Attention: Poor Concentration: Poor Association: Loose Fund of Knowledge: Poor - Mood Mood: Depressed, Anxious - Affect Affect: Constricted, Flat - Formal Thought Process Formal Thought Process: Hallucinations, Delusions, Paranoia - Suicidal Ideation Suicidal Ideation: No - Homicidal Ideation Homicidal Ideation: No Goal/Treatment Plan - Goal/Treatment Plan Need for Continued Stay: Remain at risks for inpatient hospitalization, Severe depression anxiety, Discharge may exacerbated symptoms, Failed transitioning, Severe functional impairment Progress Toward Problem(s) and Goals/Treatment Plan: Milieu/structure/supportive therapy Medical consult was called consultation for discharge plan and social issues Med management ripserdal 1mg po tid for psychosis and mood stabilization cogentin 1mg po bid for possible EPS remeron 15mg po hs for mood and insomnia ativan 0.5mg po bid for anxiety Family involvement Follow up on labs Will monitor closely evaluation for d/c planning Pt was educated about risk/benefits and alternatives of medications, coping strategies (safety plan, suicide prevention), relapse prevention, importance of follow up with psychiatrist and therapist, stay away from drugs/alcohol/smoking Estimated Date of D/C: 04/28/17
--- NOTE | 2017-04-26 16:12 | CP.PCM.CON ---
<Mahesh Rangel Srikanth - Last Filed: 04/26/17 16:01> History of Present Illness - History of Present Illness History of Present Illness: Medicine consult note for Dr. Elicia Pereira DO, 1966 Reason For Consult: Medical management HPI: 27 M with PMHx of thrombocytopenia, anxiety, and depression presents with acute anxiety. We were consulted for medical management. Pt states that he does not have any chronic medical problems except for his thrombocytopenia. However, he does admit to brb per rectum which started a couple of months ago, and occurs 5-6 times a week with painless defecation. Pt further admits to b/l eye redness with mild itching. Other than that patient states he is doing okay. Patient was recently admitted for "heart racing" in January, at which time he was found to have an episode of SVT. At that time, he was cleared by cardiology after undergoing a normal ECHO with 71% EF. He denies any palpitations at this time. Pt denies f/ch/cp/sob/n/v/d/dysuria/frequency/urgency/hematuria/hematemesis PSHx: Denies PMHx: Thrombocytopenia, Anxiety, Depression All: NKDA SocHx: +Marijuana occasionally; +2-3 cigs a day; occasional EtOH Hosp: January for anxiety FamHx: Denies Meds: CoQ10 ROS: Const'l: pt denies fever, chills, generalized weakness ENT: pt denies dysphagia, otalgia, hearing deficit, rhinorrhea Eyes: pt denies sudden loss of vision, diplopia, blurred vision MSK: pt denies muscle stiffness, joint pain, extremity cramping Cardio: pt denies sob, heart murmur, cp Pulm: pt denies cough, hemoptysis, wheeze GI: pt denies loss of appetite, abdominal pain, constipation, melena, n/v/d : pt denies burning on urination, urinary frequency, hematuria, urinary urgency Neuro: pt denies paresis, paresthesia, dizziness, aguilar, numbness, tingling Derm: pt denies skin changes, lesions, nail changes Endo: pt denies intolerance to heat/cold, diaphoresis, night sweats, polydipsia Psych: pt denies anxiety, depression, mood changes Past Patient History - Infectious Disease Hx of Infectious Diseases: None - Past Social History Smoking Status: Current Some Days Smoker - CARDIAC Hx Cardiac Disorders: No - PULMONARY Hx Respiratory Disorders: No - NEUROLOGICAL Hx Neurological Disorder: No - HEENT Hx HEENT Problems: No - RENAL Hx Chronic Kidney Disease: No - ENDOCRINE/METABOLIC Hx Endocrine Disorders: No - HEMATOLOGICAL/ONCOLOGICAL Hx Blood Disorders: Yes Other/Comment: Thrombocytopenia - INTEGUMENTARY Hx Dermatological Problems: No - MUSCULOSKELETAL/RHEUMATOLOGICAL Hx Musculoskeletal Disorders: No - GASTROINTESTINAL Hx Gastrointestinal Disorders: No - GENITOURINARY/GYNECOLOGICAL Hx Genitourinary Disorders: No - PSYCHIATRIC Hx Anxiety: Yes Hx Depression: Yes Hx Schizophrenia: Yes Hx Substance Use: Yes (marijuana on/off) - SURGICAL HISTORY Hx Surgeries: No - ANESTHESIA Hx Anesthesia: No Meds Allergies/Adverse Reactions: Allergies Allergy/AdvReac Type Severity Reaction Status Date / Time No Known Allergies Allergy Verified 04/23/17 12:07 - Medications Medications: Current Medications Acetaminophen (Tylenol 325mg Tab) 650 mg PO Q6H PRN PRN Reason: Pain, moderate (4-7) Al Hydrox/Mg Hydrox/Simethicone (Maalox Plus 30 Ml) 30 ml PO DAILY PRN PRN Reason: Indigestion / Heartburn Artificial Tears (Artificial Tears Opht Oint) 0 gm OD Q6 PRN PRN Reason: Dry eyes Benztropine Mesylate (Cogentin) 1 mg PO BID [facility] Last Admin: 04/26/17 07:43 Dose: 1 mg Lorazepam (Ativan) 0.5 mg PO BID [facility] PRN Reason: Protocol Last Admin: 04/26/17 07:43 Dose: 0.5 mg Magnesium Hydroxide (Milk Of Magnesia) 30 ml PO DAILY PRN PRN Reason: Constipation Mirtazapine (Remeron) 15 mg PO HS [facility] Last Admin: 04/25/17 22:41 Dose: 15 mg Risperidone (Risperdal Tab) 1 mg PO BID [facility] PRN Reason: Protocol Last Admin: 04/26/17 07:43 Dose: 1 mg Risperidone (Risperdal Tab) 1 mg PO HS [facility] PRN Reason: Protocol Sodium Chloride ([place] Nasal [place]) 0 ml NS Q8H PRN PRN Reason: Nasal congestion Physical Exam - Additional Findings Additional findings: Phys Exam: VS as below Const'l: a&o x 4, nad Head/Neck: neck supple, no jvd, trachea midline, carotid midline, no cervical /head mass Eyes: +erythema in inferior eyes b/l; carlos alberto, nonicteric sclera, eom intact ENT: auditory acuity grossly intact, throat not congested, no nasal deformity Cardio: rrr, no m/r/g, no carotid bruit, nml s1, s2 Pulm: no accessory muscle use, equal nml breath sounds bilaterally, ctab Abd: s/nt/nd, nbs x 4 q, no palpable masses Derm: no rashes, no ulcers, no lesions Extr: no edema, no cyanosis, no calf tenderness, no lesions, no varicosities Neuro: cn II-XII grossly intact, ue and le 5/5 muscle strength bilaterally, no los ue, le bilaterally and core Results - Vital Signs Recent Vital Signs: Last Vital Signs Temp 98.3 F 04/26/17 07:00 Pulse 93 H 04/26/17 15:50 Resp 20 04/26/17 07:00 BP 128/71 04/26/17 15:50 Pulse Ox 97 04/23/17 10:00 - Labs Result Diagrams: 04/26/17 09:30 04/26/17 09:30 Labs: Laboratory Results - last 24 hr 04/26/17 04/26/17 09:30 09:30 WBC 6.5 RBC 5.26 Hgb 14.6 Hct 44.1 MCV 83.8 MCH 27.8 MCHC 33.1 RDW 13.7 Plt Count 95 L MPV 11.1 H Sodium 142 Potassium 4.0 Chloride 103 Carbon Dioxide 30 Anion Gap 13 BUN 12 Creatinine 1.2 Est GFR ( Amer) > 60 Est GFR (Non-Af Amer) > 60 Random Glucose 84 Calcium 9.7 Total Bilirubin 0.5 AST 34 ALT 41 Alkaline Phosphatase 64 Total Protein 6.9 Albumin 4.2 Globulin 2.7 Albumin/Globulin Ratio 1.6 Assessment & Plan - Assessment and Plan (Free Text) Assessment: A/P 27 M with PMHx of thrombocytopenia, anxiety, and depression presents with acute anxiety Conjunctival erythema - Artificial tears Hematochezia - FOBT ordered, f/u Nasal congestion - NS nasal spray ordered Thrombocytopenia, 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 At this point, no further medical intervention is needed. Please feel free to re- consult as necessary <Andrzej Rubi - Last Filed: 04/27/17 14:58> Meds - Medications Medications: Current Medications Acetaminophen (Tylenol 325mg Tab) 650 mg PO Q6H PRN PRN Reason: Pain, moderate (4-7) Al Hydrox/Mg Hydrox/Simethicone (Maalox Plus 30 Ml) 30 ml PO DAILY PRN PRN Reason: Indigestion / Heartburn Artificial Tears (Artificial Tears Opht Oint) 0 gm OD Q6 PRN PRN Reason: Dry eyes Last Admin: 04/26/17 16:43 Dose: 1 applic Benztropine Mesylate (Cogentin) 1 mg PO BID [facility] Last Admin: 04/27/17 08:38 Dose: 1 mg Lorazepam (Ativan) 0.5 mg PO BID [facility] PRN Reason: Protocol Last Admin: 04/27/17 08:38 Dose: 0.5 mg Magnesium Hydroxide (Milk Of Magnesia) 30 ml PO DAILY PRN PRN Reason: Constipation Mirtazapine (Remeron) 15 mg PO HS [facility] Last Admin: 04/26/17 21:31 Dose: 15 mg Risperidone (Risperdal Tab) 1 mg PO BID [facility] PRN Reason: Protocol Last Admin: 04/27/17 08:38 Dose: 1 mg Risperidone (Risperdal Tab) 1 mg PO HS [facility] PRN Reason: Protocol Last Admin: 04/26/17 21:31 Dose: 1 mg Sodium Chloride ([place] Nasal [place]) 0 ml NS Q8H PRN PRN Reason: Nasal congestion Results - Vital Signs Recent Vital Signs: Last Vital Signs Temp 98.3 F 04/27/17 07:00 Pulse 16 L 04/27/17 07:00 Resp 16 04/27/17 07:00 BP 100/53 L 04/27/17 07:00 Pulse Ox 97 04/23/17 10:00 - Labs Result Diagrams: 04/26/17 09:30 04/26/17 09:30 Attending/Attestation - Attestation I have personally seen and examined this patient.: Yes I have fully participated in the care of the patient.: Yes I have reviewed all pertinent clinical information: Yes Notes (Text): I have seen and examined the patient at bedside. Agree with the above note with the following additions/ exception: Briefly this is 27 year old male with history of thrombocytopenia, anxiety, depression who was admitted for evaluation of anxiety. Patient complains of dry eyes. Will start artificial tears. He also complains of bright red blood streaks in stool on and off along with painful defecation most likely secondary to constipation. Advised patient to drink plenty of water and increase fibre intake. Platelets are stable. If it persist then follow up with GI as an outpatient. Upon discharge patient will follow up with Dr Jameel Camacho. Dr Andrzej Rubi
[2017-04-26] MEDS: Mineral Oil/Petrolatum Opht Oint(3.5 gm) OD PRN (16:43)
--- NOTE | 2017-04-27 14:43 | PCM.PYCHPN ---
Psychiatric Progress Note - Psychiatric Progress Note Patient seen today, length of contact: 20 Patient Chief Complaint: "I am doing better but still have anxiety" Problems Identified/Issues Discussed: Patient has not been taking part in groups. He was encouraged to do so, indicates that he still has problems with anxiety but will try. Patient indicates that his head is no longer numb, and is "feeling good". Medication Change: No Medical Record Reviewed: Yes Consults ordered or reviewed: Patient is medically cleared was seen for thrombocytopenia and hy of SVT. Mental Status Examination - Cognitive Function Orientation: Person, Place, Situation Memory: Impaired Attention: Poor Concentration: Poor Association: Loose Fund of Knowledge: Poor - Mood Mood: Depressed, Anxious - Affect Affect: Constricted, Flat - Formal Thought Process Formal Thought Process: Hallucinations, Delusions, Paranoia - Suicidal Ideation Suicidal Ideation: No - Homicidal Ideation Homicidal Ideation: No Goal/Treatment Plan - Goal/Treatment Plan Need for Continued Stay: Remain at risks for inpatient hospitalization, Severe depression anxiety, Discharge may exacerbated symptoms, Failed transitioning, Severe functional impairment Estimated Date of D/C: 04/28/17
[2017-04-27] MEDS: Mineral Oil/Petrolatum Opht Oint(3.5 gm) OD PRN (18:08)
--- NOTE | 2017-04-28 09:52 | PCM.PYCHPN ---
Psychiatric Progress Note - Psychiatric Progress Note Patient seen today, length of contact: 25 min Patient Chief Complaint: "all right" and a little better since admission. Problems Identified/Issues Discussed: I reviewed recent notes and met with patient at bedside. Patient is known to me from prior admission. Patient is calm and superficially cooperative. Reports that he feels "all right" and a little better since admission. Patient is oriented to month, year, location and superficially related to current circumstances. Patient is oddly related and anxious. He tells me that his "head is coming along, things are disappearing". Thought process remains scattered and fixated about somatic issues regarding his brain and breathing. Denies AVH, wishes or suicidal thoughts. Patient is tolerating medications and denies any side effects except for "feeling my heart beat". Nursing notes indicate that patient has been in fair control. Appears to be a little better, more logical. Stays in his room. He has been compliant with medications. There were no behavioral issues overnight. There has been no agitation or aggression on the unit. Diagnostic Results: schizophreniform r/o schizophrenia r/o OCTAVIA Medication Change: No Medical Record Reviewed: Yes Mental Status Examination - Cognitive Function Orientation: Person, Place, Situation Memory: Impaired Attention: Poor Concentration: Poor Association: Loose Fund of Knowledge: Poor - Mood Mood: Depressed ("all right" and a little better since admission.), Anxious - Affect Affect: Constricted, Flat - Formal Thought Process Formal Thought Process: Hallucinations (denies today), Delusions, Paranoia - Suicidal Ideation Suicidal Ideation: No - Homicidal Ideation Homicidal Ideation: No Goal/Treatment Plan - Goal/Treatment Plan Need for Continued Stay: Remain at risks for inpatient hospitalization, Severe depression anxiety, Discharge may exacerbated symptoms, Failed transitioning, Severe functional impairment Progress Toward Problem(s) and Goals/Treatment Plan: * Milieu/group/supportive therapy * ripserdal 1mg po tid for psychosis and mood stabilization * cogentin 1mg po bid for EPS prophylaxis * remeron 15mg po hs for mood and insomnia * ativan 0.5mg po bid for anxiety * Vitals reviewed and noted below. Will monitor HR Selected Entries 04/23/17 04/23/17 04/24/17 08:08 10:00 07:49 Temperature Pulse Rate 74 80 70 Respiratory Rate Blood Pressure Blood Pressure Mean 04/24/17 04/25/17 04/25/17 16:00 07:53 16:00 Temperature Pulse Rate 70 83 96 H Respiratory Rate Blood Pressure Blood Pressure Mean 04/26/17 04/26/17 04/27/17 07:00 15:50 07:00 Temperature 98.3 F 98.3 F Pulse Rate 81 93 H Respiratory 20 16 Rate Blood Pressure 86/54 L 128/71 100/53 L Blood Pressure Mean 04/27/17 04/28/17 16:45 06:51 Temperature 98.0 F Pulse Rate 92 H 66 Respiratory 18 Rate Blood Pressure 91/53 L Blood Pressure 75 Mean * No new labs noted for today thus far Estimated Date of D/C: 04/28/17
--- NOTE | 2017-04-29 08:35 | PCM.PYCHPN ---
Psychiatric Progress Note - Psychiatric Progress Note Patient seen today, length of contact: 25 min Patient Chief Complaint: "all right" and a little better since admission. Problems Identified/Issues Discussed: I reviewed recent notes and met with patient at bedside. Patient is superficially calm and cooperative. Reports that he feels "all right" and still little better since admission. Patient is oriented to month, year, location and superficially related to current circumstances. Patient remains oddly related and anxious. Thought process remains a little scattered. He is still fixated about somatic issues regarding his brain, breathing and heart. Denies AVH, wishes or suicidal thoughts. Patient is tolerating medications and denies any side effects except for "feeling my heart beat". Nursing notes indicate that patient has been in fair control. Appears to be a little better, more logical and more willing to engage. Still appears anxious and didn't attend group. He has been compliant with medications. There were no behavioral issues overnight. There has been no agitation or aggression on the unit. Diagnostic Results: schizophreniform r/o schizophrenia r/o OCTAVIA Medication Change: No Medical Record Reviewed: Yes Mental Status Examination - Cognitive Function Orientation: Person, Place, Situation Memory: Impaired Attention: Poor Concentration: Poor Association: Loose Fund of Knowledge: Poor - Mood Mood: Depressed ("all right" and a little better since admission.), Anxious - Affect Affect: Constricted, Flat - Speech Speech: Soft - Formal Thought Process Formal Thought Process: Hallucinations (denies today), Delusions, Paranoia - Suicidal Ideation Suicidal Ideation: No - Homicidal Ideation Homicidal Ideation: No Goal/Treatment Plan - Goal/Treatment Plan Need for Continued Stay: Remain at risks for inpatient hospitalization, Severe depression anxiety, Discharge may exacerbated symptoms, Failed transitioning, Severe functional impairment Progress Toward Problem(s) and Goals/Treatment Plan: * Milieu/group/supportive therapy * ripserdal 1mg po tid for psychosis and mood stabilization * cogentin 1mg po bid for EPS prophylaxis * remeron 15mg po hs for mood and insomnia * ativan 0.5mg po bid for anxiety * Vitals reviewed and noted below. Will monitor HR Selected Entries 04/27/17 04/27/17 04/28/17 07:00 16:45 06:51 Temperature 98.3 F 98.0 F Pulse Rate 92 H 66 Respiratory 16 18 Rate Blood Pressure 100/53 L 91/53 L 103/61 04/28/17 15:00 Temperature Pulse Rate 98 H Respiratory Rate Blood Pressure 113/74 * No new labs noted for today thus far Estimated Date of D/C: 04/28/17
[2017-04-30 06:49] VITALS: RESP 20
--- NOTE | 2017-04-30 08:52 | PCM.PYCHPN ---
Psychiatric Progress Note - Psychiatric Progress Note Patient seen today, length of contact: 25 min Patient Chief Complaint: "good so far" Problems Identified/Issues Discussed: I reviewed recent notes and met with patient at bedside. Patient is superficially calm and cooperative. Reports that he feels "good so far" and still little better since admission. Patient is oriented to month, year, location and superficially related to current circumstances. Patient remains oddly related and pleasant. Seems less anxious today. Thought process is a little more organized though he does go on tangents. He is still fixated about somatic issues regarding his heart and brain. Denies AVH, wishes or suicidal thoughts. Patient is tolerating medications and denies any other side effects except for "feeling my heart beat" Nursing notes indicate that patient has been in fair control. Appears to be a little better, more logical, verbal and more willing to engage. Still appears anxious and didn't attend group. He has been compliant with medications. There were no behavioral issues over the weekend. There has been no agitation or aggression on the unit. Diagnostic Results: schizophreniform r/o schizophrenia r/o OCTAVIA Medication Change: No Medical Record Reviewed: Yes Mental Status Examination - Cognitive Function Orientation: Person, Place, Situation Memory: Impaired Attention: Poor Concentration: Poor Association: Loose Fund of Knowledge: Poor - Mood Mood: Depressed ("all right" and a little better since admission.), Anxious - Affect Affect: Constricted (pleasant), Flat - Speech Speech: Soft - Formal Thought Process Formal Thought Process: Hallucinations (denied all weekend), Delusions (somatic) , Paranoia - Suicidal Ideation Suicidal Ideation: No - Homicidal Ideation Homicidal Ideation: No Goal/Treatment Plan - Goal/Treatment Plan Need for Continued Stay: Remain at risks for inpatient hospitalization, Severe depression anxiety, Discharge may exacerbated symptoms, Failed transitioning, Severe functional impairment Progress Toward Problem(s) and Goals/Treatment Plan: * Milieu/group/supportive therapy * ripserdal 1mg po tid for psychosis and mood stabilization * cogentin 1mg po bid for EPS prophylaxis * remeron 15mg po hs for mood and insomnia * ativan 0.5mg po bid for anxiety * Vitals reviewed and noted below. Will monitor HR Selected Entries 04/29/17 04/29/17 06:59 16:13 Temperature 98.1 F Pulse Rate 81 90 Respiratory 22 Rate Blood Pressure 109/66 125/76 * No new weekend labs noted thus far Estimated Date of D/C: 04/28/17
[2017-04-30] MEDS: Mineral Oil/Petrolatum Opht Oint(3.5 gm) OD PRN (21:19)
--- NOTE | 2017-05-01 21:23 | PCM.PYCHPN ---
Psychiatric Progress Note - Psychiatric Progress Note Patient seen today, length of contact: 25 min Patient Chief Complaint: "I am doing better but still sometimes have palpitations" Problems Identified/Issues Discussed: Patient is continuing to improve affectively, though he continues to focus on the somatic. He has a child like presentation and does not really engage in interactions. He continues to isolate, he has been encouraged to participate in unit groups and activities. Medication Change: No Medical Record Reviewed: Yes Mental Status Examination - Cognitive Function Orientation: Person, Place, Situation Memory: Impaired Attention: Poor Concentration: Poor Association: Loose Fund of Knowledge: Poor - Mood Mood: Depressed ("all right" and a little better since admission.), Anxious - Affect Affect: Constricted (pleasant), Flat - Speech Speech: Soft - Formal Thought Process Formal Thought Process: Hallucinations (denied all weekend), Delusions (somatic) , Paranoia - Suicidal Ideation Suicidal Ideation: No - Homicidal Ideation Homicidal Ideation: No Goal/Treatment Plan - Goal/Treatment Plan Need for Continued Stay: Remain at risks for inpatient hospitalization, Severe depression anxiety, Discharge may exacerbated symptoms, Failed transitioning, Severe functional impairment Estimated Date of D/C: 04/28/17
--- NOTE | 2017-05-02 19:20 | PCM.PYCHPN ---
Psychiatric Progress Note - Psychiatric Progress Note Patient seen today, length of contact: 25 min Patient Chief Complaint: "I am doing better but still sometimes have palpitations but they are not as bad " Problems Identified/Issues Discussed: Patient is fixed on the somatic. He isolates and does not take part in unit activities. He continues superficially pleasant in interactions and appears to enjoy attention. He is compliant and has not been disruptive on the unit. He appears to have stabilized, discharge is being considered for tomorrow. Medication Change: No Medical Record Reviewed: Yes Mental Status Examination - Cognitive Function Orientation: Person, Place, Situation Memory: Impaired Attention: Poor Concentration: Poor Association: Loose Fund of Knowledge: Poor Decription of patient's judgement and insights: Patient is somatically preoccupied, has little insight and judgement regarding his mental illness. - Mood Mood: Anxious - Affect Affect: Constricted (pleasant), Flat - Speech Speech: Soft - Formal Thought Process Formal Thought Process: Hallucinations (denied all weekend), Delusions (somatic) , Paranoia - Suicidal Ideation Suicidal Ideation: No - Homicidal Ideation Homicidal Ideation: No Goal/Treatment Plan - Goal/Treatment Plan Need for Continued Stay: Remain at risks for inpatient hospitalization, Severe depression anxiety, Discharge may exacerbated symptoms, Failed transitioning, Severe functional impairment Estimated Date of D/C: 05/03/17
[2017-05-03 07:12] VITALS: BP 96/61; PULSE 69; TEMP 98
--- NOTE | 2017-05-03 13:42 | CP.PCM.DIS ---
Provider - Provider Date of Admission: 04/23/17 09:42 Attending physician: Valencia Guadalupe MD Primary care physician: Jameel Camacho MD Time Spent in preparation of Discharge (in minutes): 20 (Patient denies being suicidal or homicidal, is in no imminent danger to himself or others.) Hospital Course - Lab Results Lab Results: Most Recent Lab Values WBC 6.5 10^3/ul (4.5-11.0) 04/26/17 09:30 RBC 5.26 10^6/uL (3.5-6.1) 04/26/17 09:30 Hgb 14.6 g/dL (14.0-18.0) 04/26/17 09:30 Hct 44.1 % (42.0-52.0) 04/26/17 09:30 MCV 83.8 fl (80.0-105.0) 04/26/17 09:30 MCH 27.8 pg (25.0-35.0) 04/26/17 09:30 MCHC 33.1 g/dl (31.0-37.0) 04/26/17 09:30 RDW 13.7 % (11.5-14.5) 04/26/17 09:30 Plt Count 95 10^3/uL (120.0-450.0) L 04/26/17 09:30 MPV 11.1 fl (7.0-11.0) H 04/26/17 09:30 Gran % 56.2 % (50.0-68.0) 04/23/17 08:15 Lymph % (Auto) 27.5 % (22.0-35.0) 04/23/17 08:15 Anderson % (Auto) 12.4 % (1.0-6.0) H 04/23/17 08:15 Eos % (Auto) 3.1 % (1.5-5.0) 04/23/17 08:15 Baso % (Auto) 0.8 % (0.0-3.0) 04/23/17 08:15 Gran # 3.49 (1.4-6.5) 04/23/17 08:15 Lymph # 1.7 (1.2-3.4) 04/23/17 08:15 Anderson # 0.8 (0.1-0.6) H 04/23/17 08:15 Eos # 0.2 (0.0-0.7) 04/23/17 08:15 Baso # 0.05 K/mm3 (0.0-2.0) 04/23/17 08:15 Sodium 142 mmol/L (132-148) 04/26/17 09:30 Potassium 4.0 mmol/L (3.6-5.0) 04/26/17 09:30 Chloride 103 mmol/L (98-107) 04/26/17 09:30 Carbon Dioxide 30 mmol/L (21-33) 04/26/17 09:30 Anion Gap 13 (10-20) 04/26/17 09:30 BUN 12 mg/dL (7-21) 04/26/17 09:30 Creatinine 1.2 mg/dl (0.8-1.5) 04/26/17 09:30 Est GFR ( Amer) > 60 04/26/17 09:30 Est GFR (Non-Af Amer) > 60 04/26/17 09:30 Random Glucose 84 mg/dL (70-110) 04/26/17 09:30 Fasting Glucose 72 mg/dL (65-110) 04/24/17 07:00 Calcium 9.7 mg/dL (8.4-10.5) 04/26/17 09:30 Total Bilirubin 0.5 mg/dL (0.2-1.3) 04/26/17 09:30 AST 34 U/L (17-59) 04/26/17 09:30 ALT 41 U/L (7-56) 04/26/17 09:30 Alkaline Phosphatase 64 U/L (38-126) 04/26/17 09:30 Total Protein 6.9 g/dL (5.8-8.3) 04/26/17 09:30 Albumin 4.2 g/dL (3.0-4.8) 04/26/17 09:30 Globulin 2.7 gm/dL 04/26/17 09:30 Albumin/Globulin Ratio 1.6 (1.1-1.8) 04/26/17 09:30 Triglycerides 53 mg/dL (35-160) 04/24/17 07:00 Cholesterol 129 mg/dL (130-200) L 04/24/17 07:00 LDL Cholesterol Direct 75 mg/dL (0-129) 04/24/17 07:00 HDL Cholesterol 41 mg/dL (29-60) 04/24/17 07:00 Free T4 0.91 ng/dL (0.78-2.19) 04/24/17 06:30 TSH 3rd Generation 1.09 mIU/mL (0.46-4.68) 04/24/17 06:30 Urine Color Yellow (YELLOW) 04/23/17 08:50 Urine Appearance Clear (CLEAR) 04/23/17 08:50 Urine pH 6.0 (4.7-8.0) 04/23/17 08:50 Ur Specific Kemp >= 1.030 (1.005-1.035) 04/23/17 08:50 Urine Protein Negative mg/dL (<30 mg/dL) 04/23/17 08:50 Urine Glucose (UA) Negative mg/dL (NEGATIVE) 04/23/17 08:50 Urine Ketones Trace mg/dL (NEGATIVE) H 04/23/17 08:50 Urine Blood Negative (NEGATIVE) 04/23/17 08:50 Urine Nitrate Negative (NEGATIVE) 04/23/17 08:50 Urine Bilirubin Negative (NEGATIVE) 04/23/17 08:50 Urine Urobilinogen 0.2 E.U./dL (<1 E.U./dL) 04/23/17 08:50 Ur Leukocyte Esterase Negative Luc/uL (NEGATIVE) 04/23/17 08:50 Salicylates < 1 mg/dL (2.0-20.0) L 04/23/17 08:15 Urine Opiates Screen Negative (NEGATIVE) 04/23/17 08:50 Urine Methadone Screen Negative (NEGATIVE) 04/23/17 08:50 Acetaminophen < 10.0 ug/ml (10.0-20.0) L 04/23/17 08:15 Ur Barbiturates Screen Negative (NEGATIVE) 04/23/17 08:50 Ur Phencyclidine Scrn Negative (NEGATIVE) 04/23/17 08:50 Ur Amphetamines Screen Negative (NEGATIVE) 04/23/17 08:50 U Benzodiazepines Scrn Negative (NEGATIVE) 04/23/17 08:50 U Oth Cocaine Metabols Negative (NEGATIVE) 04/23/17 08:50 U Cannabinoids Screen Negative (NEGATIVE) 04/23/17 08:50 Alcohol, Quantitative < 10 mg/dL (0-10) 04/23/17 08:15 RPR Nonreactive (NONREACTIVE) 04/24/17 06:30 Discharge Plan - Discharge Medications Prescriptions: Benztropine [Cogentin] 1 mg PO BID #30 tab LORazepam [Ativan] 0.5 mg PO BID #30 tab Mirtazapine [Remeron] 15 mg PO HS #14 tab risperiDONE [RisperDAL Tab] 1 mg PO BID #30 tab - Follow Up Plan Condition: STABLE Disposition: HOME/ ROUTINE Referrals: Jameel Camacho MD [Primary Care Provider] -
--- NOTE | 2017-05-03 15:57 | PCM.BM ---
Treatment Plan Problems - Problems identified on initial assessmt Altered Thought Process Date Initiated: 04/23/17 Time Initiated: 13:49 Assessment reference: NA Status: Active Priority: 1 Depression Date Initiated: 04/23/17 Time Initiated: 13:49 Assessment reference: NA Status: Active Priority: 2 Anxiety Date Initiated: 04/23/17 Time Initiated: 13:50 Assessment reference: NA Status: Active Priority: 3 Medication Nonadherence Date Initiated: 04/23/17 Time Initiated: 13:50 Date resolved: 04/25/17 Assessment reference: NA Status: Active Priority: 4 Treatment assets and liabiliti Patient Assests: adapts well, cooperative, self-reliant, ADL independent, physically healthy, good support system, negotiates basic needs, cognitively intact - Milieu Protocol Maintain good personal hygiene: daily Encourage regular showers, daily Remind patient to perform daily oral care, daily Assist patient to perform ADL's Maintain personal safety: every shift Educate patient to report safety concerns to staff, every shift Monitor environment for contraband/sharps Medication safety: Monitor for expected outcome, potential side effects: every shift, Assess barriers to learning: every shift, Assess readiness for medication education: every shift Milieu Narrative: * Milieu/group/supportive therapy * ripserdal 1mg po tid for psychosis and mood stabilization * cogentin 1mg po bid for EPS prophylaxis * remeron 15mg po hs for mood and insomnia * ativan 0.5mg po bid for anxiety * Vitals reviewed and noted below. Will monitor HR Selected Entries 04/29/17 04/29/17 06:59 16:13 Temperature 98.1 F Pulse Rate 81 90 Respiratory 22 Rate Blood Pressure 109/66 125/76 * No new weekend labs noted thus far Family Contact Family involvement: Family/SO is involved Family contact: Patient agrees to contact Family contacted how many times per week?: 2 Family contact comment: Pt's mother has visited pt on unit Discharge/Continuing Care - Education Needs Education Needs: Patient Medication, Patient Diagnosis/Disease Process, Patient Coping Skills - Discharge Discharge Criteria: Tolerates medication w/o severe side effects, Normal sleep pattern Discharge to:: Home - Treatment Team Participation Patient/Family/SO Statement: * Milieu/group/supportive therapy * ripserdal 1mg po tid for psychosis and mood stabilization * cogentin 1mg po bid for EPS prophylaxis * remeron 15mg po hs for mood and insomnia * ativan 0.5mg po bid for anxiety * Vitals reviewed and noted below. Will monitor HR Selected Entries 04/29/17 04/29/17 06:59 16:13 Temperature 98.1 F Pulse Rate 81 90 Respiratory 22 Rate Blood Pressure 109/66 125/76 * No new weekend labs noted thus far Treatment Plan Review - Problem Altered Thought Process Time Initiated: 13:49 Depression Time Initiated: 13:49 Anxiety Time Initiated: 13:50 Medication Nonadherence Time Initiated: 13:50
--- NOTE | 2017-05-03 16:21 | PCM.BM ---
Treatment Plan Problems - Problems identified on initial assessmt Altered Thought Process Date Initiated: 05/03/17 Time Initiated: 11:30 Date resolved: 05/03/17 Assessment reference: NA Status: Active Priority: 1 Depression Date Initiated: 05/03/17 Time Initiated: 13:49 Date resolved: 05/03/17 Assessment reference: NA Status: Active Priority: 2 Anxiety Date Initiated: 05/03/17 Time Initiated: 13:50 Date resolved: 05/03/17 Assessment reference: NA Status: Active Priority: 3 Medication Nonadherence Date Initiated: 05/03/17 Time Initiated: 13:50 Date resolved: 05/03/17 Assessment reference: NA Status: Active Priority: 4 Treatment assets and liabiliti Patient Assests: adapts well, cooperative, self-reliant, ADL independent, physically healthy, good support system, negotiates basic needs, cognitively intact - Milieu Protocol Maintain good personal hygiene: daily Encourage regular showers, daily Remind patient to perform daily oral care, daily Assist patient to perform ADL's Maintain personal safety: every shift Educate patient to report safety concerns to staff, every shift Monitor environment for contraband/sharps Medication safety: Monitor for expected outcome, potential side effects: every shift, Assess barriers to learning: every shift, Assess readiness for medication education: every shift Milieu Narrative: * Milieu/group/supportive therapy * ripserdal 1mg po tid for psychosis and mood stabilization * cogentin 1mg po bid for EPS prophylaxis * remeron 15mg po hs for mood and insomnia * ativan 0.5mg po bid for anxiety * Vitals reviewed and noted below. Will monitor HR Selected Entries 04/29/17 04/29/17 06:59 16:13 Temperature 98.1 F Pulse Rate 81 90 Respiratory 22 Rate Blood Pressure 109/66 125/76 * No new weekend labs noted thus far Family Contact Family involvement: Family/SO is involved Family contact: Patient agrees to contact Family contacted how many times per week?: 2 Family contact comment: Pt's mother has visited pt on unit Discharge/Continuing Care - Education Needs Education Needs: Patient Medication, Patient Diagnosis/Disease Process, Patient Coping Skills - Discharge Discharge Criteria: Tolerates medication w/o severe side effects, Normal sleep pattern Discharge to:: Home - Treatment Team Participation Patient/Family/SO Statement: * Milieu/group/supportive therapy * ripserdal 1mg po tid for psychosis and mood stabilization * cogentin 1mg po bid for EPS prophylaxis * remeron 15mg po hs for mood and insomnia * ativan 0.5mg po bid for anxiety * Vitals reviewed and noted below. Will monitor HR Selected Entries 04/29/17 04/29/17 06:59 16:13 Temperature 98.1 F Pulse Rate 81 90 Respiratory 22 Rate Blood Pressure 109/66 125/76 * No new weekend labs noted thus far Treatment Plan Review - Problem Altered Thought Process Time Initiated: 13:49 Depression Time Initiated: 13:49 Anxiety Time Initiated: 13:50 Medication Nonadherence Time Initiated: 13:50
== END 2017-05-03 16:05 | disposition home or self-care (01) | DRG 430 ==
LOC: ED 07:51 → ERH 09:42 → PSYC 11:37
PROVIDERS: ADMIT Psychiatry & Neurology Psychiatry; ATTEND Psychiatry & Neurology Psychiatry
DX: F20.81 Schizophreniform disorder (principal); D69.6 Thrombocytopenia, unspecified; F32.9 Major depressive disorder, single episode, unspecified; F41.9 Anxiety disorder, unspecified; F17.210 Nicotine dependence, cigarettes, uncomplicated; F12.10 Cannabis abuse, uncomplicated; K59.00 Constipation, unspecified; G47.00 Insomnia, unspecified; Z91.14 Patient's other noncompliance with medication regimen

== ENCOUNTER 2017-08-06 04:14 | Emergency (ER) | payer MEDICAID ==
[2017-08-06 04:19] VITALS: BMI 24.3
[2017-08-06 04:23] VITALS: TEMP 98.5; O2SAT 96
--- NOTE | 2017-08-06 05:18 | ED PDOC ---
Arrival/HPI - General Chief Complaint: Dizziness/Lightheaded Time Seen by Provider: 08/06/17 05:10 Historian: Patient - History of Present Illness Narrative History of Present Illness (Text): 08/06/17 05:16 A 27 year old male, with no significant past medical history, presents to the emergency department complaining of dizziness. The patient states that he smoked marijuana this evening when shortly after he began to feel dizzy. The patient notes that he currently feels better. The patient denies fevers, chills , headache, chest pain, shortness of breath, dyspnea on exertion, cough, abdominal pain, nausea, vomiting, diarrhea, back pain, neck pain, urinary/bowel changes, or any other complaint. PMD: Dr. Joyce Camacho Time/Duration: Other (This evening) Symptom Onset: Sudden Symptom Course: Unchanged Activities at Onset: Rest, Light Context: Home Past Medical History - Provider Review Nursing Documentation Reviewed: Yes - Infectious Disease Hx of Infectious Diseases: None - Cardiac Hx Cardiac Disorders: No - Pulmonary Hx Respiratory Disorders: No - Neurological Hx Neurological Disorder: No - HEENT Hx HEENT Disorder: No - Renal Hx Renal Disorder: No - Endocrine/Metabolic Hx Endocrine Disorders: No - Hematological/Oncological Hx Blood Disorders: Yes Other/Comment: Thrombocytopenia - Integumentary Hx Dermatological Disorder: No - Musculoskeletal/Rheumatological Hx Musculoskeletal Disorders: No - Gastrointestinal Hx Gastrointestinal Disorders: No - Genitourinary/Gynecological Hx Genitourinary Disorders: No - Psychiatric Hx Anxiety: Yes Hx Depression: Yes Hx Schizophrenia: Yes Hx Substance Use: Yes (marijuana on/off) - Anesthesia Hx Anesthesia: No Family/Social History - Physician Review Nursing Documentation Reviewed: Yes Family/Social History: No Known Family HX Smoking Status: Current Some Days Smoker Hx Alcohol Use: No Hx Substance Use: Yes (marijuana on/off) Allergies/Home Meds Allergies/Adverse Reactions: Allergies No Known Allergies Allergy (Verified 08/06/17 04:19) Home Medications: Home Meds Medication Instructions Recorded Confirmed Omeprazole [Omeprazole] 20 mg PO DAILY 08/06/17 08/06/17 Review of Systems - Physician Review All systems were reviewed & negative as marked: Yes - Review of Systems Constitutional: absent: Fevers, Night Sweats Respiratory: absent: SOB, Cough Cardiovascular: absent: Chest Pain, KIM Gastrointestinal: absent: Abdominal Pain, Stool Changes, Diarrhea, Nausea, Vomiting Genitourinary Male: absent: Urinary Output Changes Musculoskeletal: absent: Back Pain, Neck Pain Neurological: Dizziness. absent: Headache Physical Exam Vital Signs Reviewed: Yes Vital Signs Temp Pulse Resp BP Pulse Ox 08/06/17 04:21 98.5 F 91 H 16 122/79 96 Temperature: Afebrile Blood Pressure: Normal Pulse: Tachycardic Respiratory Rate: Normal Appearance: Positive for: Well-Appearing, Non-Toxic, Comfortable Pain Distress: None Mental Status: Positive for: Alert and Oriented X 3 - Systems Exam Head: Present: Atraumatic, Normocephalic Pupils: Present: PERRL Extroacular Muscles: Present: EOMI Conjunctiva: Present: Normal Mouth: Present: Moist Mucous Membranes Neck: Present: Normal Range of Motion Respiratory/Chest: Present: Clear to Auscultation, Good Air Exchange. No: Respiratory Distress, Accessory Muscle Use Cardiovascular: Present: Regular Rate and Rhythm, Normal S1, S2. No: Murmurs Abdomen: Present: Normal Bowel Sounds. No: Tenderness, Distention, Peritoneal Signs Back: Present: Normal Inspection Upper Extremity: Present: Normal Inspection. No: Cyanosis, Edema Lower Extremity: Present: Normal Inspection. No: Edema Neurological: Present: GCS=15, CN II-XII Intact, Speech Normal Skin: Present: Warm, Dry, Normal Color. No: Rashes Psychiatric: Present: Alert, Oriented x 3, Normal Insight, Normal Concentration Medical Decision Making ED Course and Treatment: 08/06/17 05:19 Impression: A 27 year old male presents to the emergency department complaining of dizziness s/p smoking marijuana. The patient states that he currently feels better. Plan: -- Reassess and disposition Progress Notes: - Scribe Statement The provider has reviewed the documentation as recorded by the David Ramos Provider Scribe Attestation: All medical record entries made by the Scribe were at my direction and personally dictated by me. I have reviewed the chart and agree that the record accurately reflects my personal performance of the history, physical exam, medical decision making, and the department course for this patient. I have also personally directed, reviewed, and agree with the discharge instructions and disposition. Disposition/Present on Arrival - Present on Arrival Any Indicators Present on Arrival: No History of DVT/PE: No History of Uncontrolled Diabetes: No Urinary Catheter: No History of Decub. Ulcer: No History Surgical Site Infection Following: None - Disposition Have Diagnosis and Disposition been Completed?: Yes Diagnosis: Dizziness Disposition: HOME/ ROUTINE Disposition Time: 06:22 Patient Problems: Current Active Problems Problem Status Onset Dizziness Acute Condition: GOOD Discharge Instructions (ExitCare): Dizziness, Nonvertigo, (DC) Referrals: Jameel Camacho MD [Primary Care Provider] - Follow up with primary Forms: [employer] ([place])
[2017-08-06 06:45] VITALS: BP 128/82; PULSE 87; RESP 17
== END 2017-08-06 07:00 | disposition home or self-care (01) ==
LOC: ED 04:14
DX: R42 Dizziness and giddiness (principal); F20.9 Schizophrenia, unspecified

== ENCOUNTER 2017-08-08 20:44 | Inpatient (IN) | payer MEDICAID ==
[2017-08-08 21:06] VITALS: BMI 24.6
[2017-08-08] MEDS ORDERED: Sodium Chloride 0.9% 1,000 ML IV STA (21:30)
[2017-08-08] MEDS ORDERED: cefTRIAXone 2 GM IN NS 2 GM/100 ML BAG IVPB STA (21:41)
[2017-08-08] MEDS ORDERED: Vancomycin 1gm in NS 250ml 1 GM/250 ML BAG IVPB STA (21:44)
--- NOTE | 2017-08-08 21:51 | ED PDOC ---
Arrival/HPI - General Chief Complaint: Headache Time Seen by Provider: 08/08/17 21:18 Historian: Patient - History of Present Illness Narrative History of Present Illness (Text): 08/08/17 21:48 A 27 year old male, whose past medical history includes thrombocytopenia, presents to the emergency department complaining of a migraine headache. Patient reports similar headaches in the past, notes taking Aspirin with relief. Patient had a platelet transfusion this morning. He denies any headache or symptoms prior to transfusion. Patient notes mild cough and rhinorrhea but denies any fever, chills, vision changes, neck pain, nausea, vomiting, abdominal pain, dysuria, chest pain, shortness of breath or any other complaints. Oncologist: Dr. Kayleen Preciado Past Medical History - Provider Review Nursing Documentation Reviewed: Yes - Infectious Disease Hx of Infectious Diseases: None - Cardiac Hx Cardiac Disorders: No - Pulmonary Hx Respiratory Disorders: No - Neurological Hx Neurological Disorder: No - HEENT Hx HEENT Disorder: No - Renal Hx Renal Disorder: No - Endocrine/Metabolic Hx Endocrine Disorders: No - Hematological/Oncological Hx Blood Disorders: Yes Other/Comment: Thrombocytopenia - Integumentary Hx Dermatological Disorder: No - Musculoskeletal/Rheumatological Hx Musculoskeletal Disorders: No - Gastrointestinal Hx Gastrointestinal Disorders: No - Genitourinary/Gynecological Hx Genitourinary Disorders: No - Psychiatric Hx Anxiety: Yes Hx Depression: Yes Hx Schizophrenia: Yes Hx Substance Use: Yes (marijuana on/off) - Anesthesia Hx Anesthesia: No Family/Social History - Physician Review Nursing Documentation Reviewed: Yes Family/Social History: No Known Family HX Smoking Status: Current Some Days Smoker Hx Alcohol Use: No Hx Substance Use: Yes (marijuana on/off) Allergies/Home Meds Allergies/Adverse Reactions: Allergies ibuprofen Allergy (Verified 08/08/17 22:08) RASH Home Medications: Home Meds Medication Instructions Recorded Confirmed Omeprazole [Omeprazole] 20 mg PO DAILY 08/06/17 08/08/17 Review of Systems - Physician Review All systems were reviewed & negative as marked: Yes - Review of Systems Constitutional: absent: Fevers, Night Sweats Eyes: absent: Vision Changes ENT: Rhinorrhea Respiratory: Cough. absent: SOB Cardiovascular: absent: Chest Pain Gastrointestinal: absent: Abdominal Pain, Nausea, Vomiting Genitourinary Male: absent: Dysuria Musculoskeletal: absent: Neck Pain Neurological: Headache Physical Exam Vital Signs Reviewed: Yes Vital Signs Temp Pulse Resp BP Pulse Ox 08/08/17 22:00 101.9 F H 08/08/17 21:08 101.9 F H 115 H 18 120/76 99 08/08/17 21:06 101.9 F H 109 H 18 120/76 100 Temperature: Febrile Blood Pressure: Normal Pulse: Tachycardic Respiratory Rate: Normal Appearance: Positive for: Well-Appearing, Non-Toxic, Comfortable Pain Distress: None Mental Status: Positive for: Alert and Oriented X 3 - Systems Exam Head: Present: Atraumatic, Normocephalic Pupils: Present: PERRL Extroacular Muscles: Present: EOMI Conjunctiva: Present: Normal Mouth: Present: Moist Mucous Membranes Neck: Present: Normal Range of Motion Respiratory/Chest: Present: Clear to Auscultation, Good Air Exchange. No: Respiratory Distress, Accessory Muscle Use Cardiovascular: Present: Regular Rate and Rhythm, Normal S1, S2. No: Murmurs Abdomen: Present: Normal Bowel Sounds. No: Tenderness, Distention, Peritoneal Signs Upper Extremity: Present: Normal Inspection. No: Cyanosis, Edema Lower Extremity: Present: Normal Inspection. No: Edema Neurological: Present: GCS=15, CN II-XII Intact, Speech Normal Skin: Present: Warm, Dry, Normal Color. No: Rashes Psychiatric: Present: Alert, Oriented x 3, Normal Insight, Normal Concentration Medical Decision Making ED Course and Treatment: 08/08/17 21:48 Impression: A 27 year old male with a migraine headache. Patient notes mild cough and rhinorrhea. Plan: -- Chest xray -- Labs -- Blood and Urine culture -- Urinalysis -- Influenza and Rapid strep -- Tylenol, Toradol, Rocephin, IV fluids and Vancomycin -- Reassess and disposition Progress Notes: 08/08/17 22:47 Concern for meningitis and antibiotics ordered immediately on arrival. EKG shows NSR at 99bpm. No acute ST changes. Cxray negative. Flu and rapid strep negative. Lactate elevated and code sepsis called with 30cc/kg fluid bolus given of LR. Patient consented to LP which was done by medical technologist and supervised by me. Accepted by hospitalist - Lab Interpretations Lab Results: 08/08/17 21:50 08/08/17 21:50 Lab Results 08/08/17 21:50: Phosphorus 1.2 L*, Magnesium 1.9 08/08/17 21:50: Grp A Beta Strep Ag Negative 08/08/17 21:50: Influenza Typ A,B (EIA) Negative for flu a/b 08/08/17 21:50: Sodium 141, Chloride 104, Potassium 3.7, Carbon Dioxide 22, Anion Gap 18, BUN 9, Creatinine 1.2, Est GFR ( Amer) > 60, Est GFR (Non- Af Amer) > 60, Random Glucose 96, Calcium 10.1, Total Bilirubin 0.5, AST 40, ALT 54, Alkaline Phosphatase 57, Total Protein 8.9 H, Albumin 4.4, Globulin 4.5 , Albumin/Globulin Ratio 1.0 L 08/08/17 21:50: pO2 41, VBG pH 7.50 H, VBG pCO2 34.0 L, VBG HCO3 26.5, VBG Total CO2 27.5, VBG O2 Sat (Calc) 84.6 H, VBG Base Excess 3.6 H, VBG Potassium 3.7, Sodium 138.0, Chloride 104.0, Glucose 95, Lactate 3.0 H, FiO2 21.0, Venous Blood Potassium 3.7 08/08/17 21:50: PT 12.5, INR 1.09 H, APTT 27.7 08/08/17 21:50: WBC 10.7 D, RBC 5.33, Hgb 14.8, Hct 42.9, MCV 80.5 D, MCH 27.8 , MCHC 34.5, RDW 13.5, Plt Count 174, MPV 10.9, Gran % 89.8 H, Lymph % (Auto) 4.9 L, Kern % (Auto) 4.8, Eos % (Auto) 0.2 L, Baso % (Auto) 0.3, Gran # 9.64 H, Lymph # (Auto) 0.5 L, Kern # (Auto) 0.5, Eos # (Auto) 0.0, Baso # (Auto) 0.03, Neutrophils % (Manual) 86 H, Band Neutrophils % 6 H, Lymphocytes % (Manual) 6 L , Monocytes % (Manual) 2, Platelet Evaluation Normal, Anisocytosis (manual) Slight I have reviewed the lab results: Yes - RAD Interpretation Radiology Orders: 08/08/17 21:31 CHEST PORTABLE [RAD] Stat 08/08/17 21:56 HEAD W/O CONTRAST [CT] Stat - Medication Orders Current Medication Orders: Discontinued Medications Acetaminophen (Tylenol 325mg Tab) 975 mg PO STAT STA Stop: 08/08/17 21:48 Last Admin: 08/08/17 22:00 Dose: 975 mg MAR Pain/Vitals Document 08/08/17 22:00 RD (Rec: 08/08/17 22:00 RD [id number]) Pain Reassessment Is This A Pain ReAssessment? No Sleep Is patient sleeping during reassessment? No Presence of Pain Presence of Pain No Vitals Temperature (97.6 F-99.6 F) 101.9 F Temperature Source Oral Sodium Chloride (Sodium Chloride 0.9%) 1,000 mls @ 999 mls/hr IV .Q1H1M STA Stop: 08/08/17 22:30 Last Admin: 08/08/17 21:59 Dose: 999 mls/hr eMAR Start Stop Document 08/08/17 21:59 RD (Rec: 08/08/17 22:00 RD [id number]) Intravenous Solution Start Date 08/08/17 Start Time 21:59 End Date 08/08/17 End time 22:59 Total Infusion Time 60 Ceftriaxone Sodium (Rocephin 2 Gm Ivpb) 2 gm in 100 mls @ 100 mls/hr IVPB STAT STA PRN Reason: Protocol Stop: 08/08/17 22:40 Last Admin: 08/08/17 22:10 Dose: 100 mls/hr eMAR Start Stop Document 08/08/17 22:10 RD (Rec: 08/08/17 22:10 RD [id number]) Intravenous Solution Start Date 08/08/17 Start Time 22:10 End Date 08/08/17 End time 23:10 Total Infusion Time 60 Vancomycin HCl (Vancomycin 1gm) 1 gm in 250 mls @ 167 mls/hr IVPB STAT STA PRN Reason: Protocol Stop: 08/08/17 23:13 Lactated Ringer's 2,500 ml/ IV (SUPPLIES) 2,500 mls @ 4,545 mls/hr IV ONCE ONE PRN Reason: 60 ML/KG/HR Stop: 08/08/17 22:16 Last Admin: 08/08/17 22:29 Dose: 4,545 mls/hr eMAR Start Stop Document 08/08/17 22:29 RD (Rec: 08/08/17 22:29 RD [id number]) Intravenous Solution Start Date 08/08/17 Start Time 22:29 End Date 08/08/17 End time 22:59 Total Infusion Time 30 Ketorolac Tromethamine (Toradol) 30 mg IVP STAT STA Stop: 08/08/17 21:31 Last Admin: 08/08/17 22:08 Dose: Not Given Non-Admin Reason: Allergy - Scribe Statement The provider has reviewed the documentation as recorded by the Aldoibmike Corbett Provider Scribe Attestation: All medical record entries made by the Scribe were at my direction and personally dictated by me. I have reviewed the chart and agree that the record accurately reflects my personal performance of the history, physical exam, medical decision making, and the department course for this patient. I have also personally directed, reviewed, and agree with the discharge instructions and disposition. Disposition/Present on Arrival - Present on Arrival Any Indicators Present on Arrival: No History of DVT/PE: No History of Uncontrolled Diabetes: No Urinary Catheter: No History of Decub. Ulcer: No History Surgical Site Infection Following: None - Disposition Have Diagnosis and Disposition been Completed?: Yes Diagnosis: Headache, Fever Disposition: HOSPITALIZED Disposition Time: 22:51 Patient Plan: Admission Patient Problems: Current Active Problems Problem Status Onset Headache Acute Fever Acute Condition: FAIR Lumbar Puncture - Time Out Time Out: Side verified, Site verified, Patient ID confirmed, Sterile procedures obs. - Consent obtained Consent obtained: Written - Performed by Performed by: Attending Physician (Cabinetmaker Supervisor, supervised by me) - Indications Indication(s): Suspected menigitis - Contraindications Contraindications: None - Patient Position Patient position: Left lateral decubitus - Local Anesthetic Location: L4/L5 Needle size gauge: 18 - Fluid Appearance Fluid Appearance: Clear - Post-procedure Post-procedure: No leak/bld from LP site - CSF Studies CSF Studies: Cell count/diff, Glucose, Protein, LDH, Gram stain, culture/ sensitivity - Complications Complications: None - Patient tolerated procedure Patient tolerated procedure: With difficulty
[2017-08-08 22:11] LABS: VENOUS BLOOD GAS BASE EXCESS 3.6 mmol/L (0.0-2.0); VENOUS BLOOD GAS PO2 41 mm/Hg (30-55)
[2017-08-08 22:12] LABS: BASO # 0.03 K/mm3 (0.0-2.0); BASO % 0.3 % (0.0-3.0); EOS % 0.2 % (1.5-5.0); GRAN # 9.64 (1.4-6.5); GRAN % 89.8 % (50.0-68.0); HEMOGLOBIN 14.8 g/dL (14.0-18.0); LYMPH # 0.5 (1.2-3.4); LYMPH % 4.9 % (22.0-35.0); MEAN CELL VOLUME 80.5 fl (80.0-105.0); MEAN CORPUSCULAR HEMOGLOBIN 27.8 pg (25.0-35.0); MEAN CORPUSCULAR HGB CONC 34.5 g/dl (31.0-37.0); MEAN PLATELET VOLUME 10.9 fl (7.0-11.0); MONO # 0.5 (0.1-0.6); MONO % 4.8 % (1.0-6.0); PLATELET COUNT 174 10^3/uL (120.0-450.0); RBC 5.33 10^6/uL (3.5-6.1); RED CELL DISTRIBUTION WIDTH 13.5 % (11.5-14.5); WHITE BLOOD COUNT 10.7 10^3/ul (4.5-11.0)
[2017-08-08 22:19] LABS: ALBUMIN 4.4 g/dL (3.0-4.8); ALT/SGPT 54 U/L (7-56); AST/SGOT 40 U/L (17-59); BLOOD UREA NITROGEN 9 mg/dL (7-21); CALCIUM 10.1 mg/dL (8.4-10.5); GFR AFRICAN-AMERICAN > 60; GFR NON-AFRICAN AMERICAN > 60
[2017-08-08 22:20] LABS: INR 1.09 (0.93-1.08); PARTIAL THROMBOPLASTIN TIME 27.7 Seconds (25.1-36.5); PROTHROMBIN TIME 12.5 SECONDS (9.4-12.5)
[2017-08-08 22:42] LABS: BAND 6 % (0-2); LYMPHOCYTE 6 % (22.0-35.0); NEUTROPHIL 86 % (50.0-70.0)
[2017-08-08 22:43] LABS: ANISOCYTOSIS SLIGHT; MONOCYTE 2 % (1.0-6.0); PLATELET ESTIMATE NORMAL (NORMAL)
[2017-08-08] MEDS ORDERED: Lidocaine 1% Inj (20ml) ONE (23:21)
[2017-08-08] MEDS ORDERED: Potassium & Sodium Phosphate PO STA (23:42)
--- NOTE | 2017-08-08 23:42 | CT ---
EXAM: CT Head Without Intravenous Contrast EXAM DATE/TIME: 08/08/2017 9:56 PM CLINICAL HISTORY: The patient age is 27 years old and is male; Pain; Headache; Migraine; Aura effect not specified Facility exam id and description: Ct heads head w/o contrast TECHNIQUE: Axial computed tomography images of the head/brain without intravenous contrast. All CT scans at this facility use one or more dose reduction techniques, viz.: automated exposure control; ma/kV adjustment per patient size (including targeted exams where dose is matched to indication; i.e. head); or iterative reconstruction technique. Coronal and sagittal reformatted images were created and reviewed. COMPARISON: CT - HEAD W/O CONTRAST 2017-01-18 00:08 FINDINGS: Brain: The white-trejo differentiation is preserved demonstrating no acute territorial type infarct. No definitive acute intracranial hemorrhage is seen. Motion artifact limits evaluation of the posterior fossa and base of the brain. Midline shift: There is no midline shift. Ventricles: No ventriculomegaly. Bones/joints: The calvarium demonstrates no evidence for a depressed fracture. Soft tissues: No acute abnormality. Sinuses: Unremarkable as visualized. No acute sinusitis. Mastoid air cells: No mastoid effusion. IMPRESSION: 1. No definitive acute intracranial abnormality on this motion limited study 2. If further evaluation is clinically indicated, an MRI of the brain is recommended.
[2017-08-08 23:58] LABS: FLUID TYPE SPINAL FLUID
[2017-08-09 00:06] LABS: URINE BILIRUBIN NEGATIVE (NEGATIVE); URINE BLOOD NEGATIVE (NEGATIVE); URINE GLUCOSE (UA) NEGATIVE (NEGATIVE); URINE LEUKOCYTE ESTERASE NEGATIVE Leu/uL (NEGATIVE); URINE PROTEIN NEGATIVE mg/dL (<30 mg/dL); URINE UROBILINOGEN 0.2 E.U./dL (<1 E.U./dL)
[2017-08-09 00:18] LABS: URINE APPEARANCE CLEAR (CLEAR); URINE COLOR STRAW (YELLOW)
[2017-08-09] MEDS: Vancomycin 1gm in NS 250ml 1 GM/250 ML BAG IVPB SCH ×2 (00:18→13:59)
--- NOTE | 2017-08-09 00:19 | CP.PCM.HP ---
History of Present Illness - History of Present Illness History of Present Illness: Eliazar Brar PGY1 H&P Note for Hospitalist Service cc: headache and neck pain Mr. Vasquez is a 27 yo AAM with PMH thrombocytopenia, anxiety and depression who presents to ED with complaints of headache, fevers/chills and neck pain x1 day. The patient is a poor historian and provides tangential speech. He initially states that he received a "hemoglobin transfusion" earlier today and felt a headache after; later in the interview, the patient stated that he had a headache in the morning, and after receiving the transfusion, his headache improved slightly. He describes this headache as located right in the middle of his head and associates it with neck pain (Worsened by active flexion and rotation), dizziness and nausea. The patient also complains of fevers/chills and a mild cough that started earlier today. The patient denies vomiting, visual or auditory changes, chest pain, sob, abdominal pain, changes in bowel habits, weakness, urinary complaints or numbness/tingling. The patient states that in 2015, his gums started bleeding which prompted him [place] [facility] [place] and received multiple platelet transfusions. He states that he has had intermittent periods of gum and rectal bleeding since then but was seeing Dr. Chandler at that time who had him on prednisone and his condition was improving. After a change of physician, patient now sees Dr. Preciado (says he's seen him 3 times so far) who took him off the prednisone but is having him come into the office daily this week for infusions; he states that he was received a "hemoglobin" infusion yesterday and another today. He states that he's on Remeron, Risperdal, Cogentin and Ativan that was started by our psych unit on 5B and that he doesn't see an outpatient psych. 12-point ROS reviewed and otherwise unremarkable. PMD: Dr. Jameel Camacho Heme: Dr. Michael Preciado PMH: as above PSH: none Meds: Remeron, Risperdal, Cogentin and Ativan Allergies: NKDA SHx: former ETOH and tobacco. denies illcit drug use or IVDA Present on Admission - Present on Admission Any Indicators Present on Admission: No Review of Systems - Review of Systems All systems: reviewed and no additional remarkable complaints except (as per HPi ) Past Patient History - Infectious Disease Hx of Infectious Diseases: None - Past Medical History & Family History Past Medical History?: Yes - Past Social History Smoking Status: Former Smoker Alcohol: None Drugs: Denies - CARDIAC Hx Cardiac Disorders: No - PULMONARY Hx Respiratory Disorders: No - NEUROLOGICAL Hx Neurological Disorder: No - HEENT Hx HEENT Problems: No - RENAL Hx Chronic Kidney Disease: No - ENDOCRINE/METABOLIC Hx Endocrine Disorders: No - HEMATOLOGICAL/ONCOLOGICAL Hx Blood Disorders: Yes Hx Gum Bleeding: Yes Other/Comment: Thrombocytopenia - INTEGUMENTARY Hx Dermatological Problems: No - MUSCULOSKELETAL/RHEUMATOLOGICAL Hx Musculoskeletal Disorders: No - GASTROINTESTINAL Hx Gastrointestinal Disorders: No - GENITOURINARY/GYNECOLOGICAL Hx Genitourinary Disorders: No - PSYCHIATRIC Hx Anxiety: Yes Hx Depression: Yes Hx Schizophrenia: Yes Hx Substance Use: Yes (marijuana on/off) - SURGICAL HISTORY Hx Surgeries: No - ANESTHESIA Hx Anesthesia: No Meds Allergies/Adverse Reactions: Allergies Allergy/AdvReac Type Severity Reaction Status Date / Time ibuprofen Allergy RASH Verified 08/08/17 22:08 Physical Exam - Constitutional Appears: Well, Non-toxic, No Acute Distress - Head Exam Head Exam: ATRAUMATIC, NORMAL INSPECTION - Eye Exam Eye Exam: EOMI, PERRL Pupil Exam: NORMAL ACCOMODATION Additional comments: strabismus - ENT Exam ENT Exam: Mucous Membranes Moist - Neck Exam Neck exam: Positive for: Tenderness (neck tenderness on palpation and on flexion and rotation) - Respiratory Exam Respiratory Exam: NORMAL BREATHING PATTERN. absent: Rales, Rhonchi, Wheezes, Respiratory Distress - Cardiovascular Exam Cardiovascular Exam: RRR, +S1, +S2 - GI/Abdominal Exam GI & Abdominal Exam: Normal Bowel Sounds, Soft. absent: Distended, Tenderness - Extremities Exam Extremities exam: Positive for: full ROM, normal inspection. Negative for: pedal edema - Back Exam Back exam: NORMAL INSPECTION - Neurological Exam Neurological exam: Alert, CN II-XII Intact, Oriented x3 Additional comments: not motor sensory deficits - Psychiatric Exam Psychiatric exam: Normal Affect, Normal Mood - Skin Skin Exam: Normal Color, Warm Results - Vital Signs Recent Vital Signs: Last Vital Signs Temp 100.8 F H 08/09/17 00:14 Pulse 77 08/09/17 00:14 Resp 18 08/09/17 00:14 BP 111/66 08/09/17 00:14 Pulse Ox 100 08/09/17 00:14 - Labs Result Diagrams: 08/08/17 21:50 08/08/17 21:50 Labs: Laboratory Results - last 24 hr 08/08/17 08/08/17 23:26 23:35 Urine Color Straw Urine Appearance Clear Urine pH 8.0 Ur Specific Glendo 1.015 Urine Protein Negative Urine Glucose (UA) Negative Urine Ketones Negative Urine Blood Negative Urine Nitrate Negative Urine Bilirubin Negative Urine Urobilinogen 0.2 Ur Leukocyte Esterase Negative Fluid Type Spinal fluid Assessment & Plan - Assessment and Plan (Free Text) Assessment: 27 yo AAM with PMH thrombocytopenia, anxiety and depression who presents to ED with complaints of headache, fevers/chills and neck pain x1 day likely after 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 Patient meets SIRS criteria for sepsis and given presentation, meningitis needs to be ruled out. CODE SEPSIS was called in ED. Plan: 1. Sepsis likely 2/2 meningitis - CT head done and showed no mass or bleeds - LP done and fluid analysis sent for cell count/diff, culture, protein and glucose - blood, CSF, throat and urine cultures ordered - HIV ordered - Drug screen ordered - Vanc and rocephin given in ED - will cont vanc and rocephin to cover empirically for meningitis - ID consulted, recs appreciated - orthostatic VS ordered - neurochecks - LR 2.5L bolus given in ED, will cont NS @ 150 - will follow up 3 and 6hr sepsis bundle - monitor for any signs of mental status changes - zofran prn - CXR was reviewed and is unremarkable as read by me - EKG ordered - droplet isolation and precautions - passed swallow eval - PT eval 2. Hypophosphatemia - replete - monitor electrolyte levels daily 3. Hx anxiety and depression - continue Remeron, Ativan, Risperdal and Cogentin PTX/SCDs for GI/DVT ppx Regular diet Patient was seen, examined and discussed with attending, Dr. Lay Brar PGY1
[2017-08-09] MEDS: Sodium Chloride 0.9% 1,000 ML IV SCH ×2 (00:49→18:34)
[2017-08-09 01:25] LABS: CSF VOLUME 1 mL (0-1)
[2017-08-09 01:26] LABS: CSF APPEARANCE CLEAR/COLORLESS (CLEAR); CSF WBC 383.9 /uL (0.0-5.0)
[2017-08-09 02:23] LABS: VENOUS BLOOD GAS PO2 48 mm/Hg (30-55); VENOUS BLOOD PH 7.38 (7.32-7.43)
--- NOTE | 2017-08-09 02:54 | PCM.SEPTIC ---
<ZoniaEliazar - Last Filed: 08/09/17 02:53> Sepsis Progress Note - Reassessment Type Date of Evaluation: 08/09/17 Time of Evaluation: 02:53 Reassessment Type: Non-invasive reassessment - Non Invasive Reassessment Were the most recent vital sign reviewed: Yes Vital Sign (Latest): Temp Pulse Resp BP Pulse Ox 102 F H 82 18 131/80 99 08/09/17 01:45 08/09/17 01:45 08/09/17 01:45 08/09/17 01:45 08/09/17 01:45 Cardiovascular: Yes: Regular Rate, Rhythm, Chest Non Tender. No: Edema Respiratory: Yes: Normal Breath Sounds. No: Rales, Rhonchi, Wheezing Capillary Refill: Normal (Less than 2 sec) Pulses: Normal Radial Skin: Normal Color, Dry <Natividad Veloz - Last Filed: 08/09/17 06:23> Sepsis Progress Note - Non Invasive Reassessment Vital Sign (Latest): Temp Pulse Resp BP Pulse Ox 102.4 F H 82 18 131/80 99 08/09/17 06:07 08/09/17 04:19 08/09/17 04:19 08/09/17 04:19 08/09/17 01:45 Attending/Attestation - Attestation I have personally seen and examined this patient.: Yes I have fully participated in the care of the patient.: Yes I have reviewed all pertinent clinical information, including history, physical exam and plan: Yes Notes (Text): 08/09/17 06:21 Agree with documentation.
[2017-08-09 04:45] LABS: BARBITURATES, UR NEGATIVE (NEGATIVE); BENZODIAZEPINES, UR NEGATIVE (NEGATIVE); OPIATES, UR NEGATIVE (NEGATIVE); PHENCYCLIDINE, UR NEGATIVE (NEGATIVE)
[2017-08-09] MEDS: Pantoprazole 40 mg EC Tab PO SCH (06:06)
[2017-08-09 07:41] LABS: MEAN CELL VOLUME 81.3 fl (80.0-105.0); MEAN CORPUSCULAR HEMOGLOBIN 27.2 pg (25.0-35.0); MEAN CORPUSCULAR HGB CONC 33.4 g/dl (31.0-37.0); MEAN PLATELET VOLUME 10.7 fl (7.0-11.0); RBC 4.71 10^6/uL (3.5-6.1); RED CELL DISTRIBUTION WIDTH 13.5 % (11.5-14.5); WHITE BLOOD COUNT 8.8 10^3/ul (4.5-11.0)
[2017-08-09 07:42] LABS: INR 1.27 (0.93-1.08); PROTHROMBIN TIME 14.7 SECONDS (9.4-12.5)
[2017-08-09 07:43] LABS: HEMOGLOBIN 12.8 g/dL (14.0-18.0)
[2017-08-09 07:59] LABS: ALB/GLOB RATIO 0.9 (1.1-1.8); ALBUMIN 3.3 g/dL (3.0-4.8); ALT/SGPT 37 U/L (7-56); AST/SGOT 30 U/L (17-59); BLOOD UREA NITROGEN 9 mg/dL (7-21); GFR AFRICAN-AMERICAN > 60; GFR NON-AFRICAN AMERICAN > 60
[2017-08-09] MEDS: cefTRIAXone 2 GM IN NS 2 GM/100 ML BAG IVPB SCH ×2 (09:40→22:45)
--- NOTE | 2017-08-09 10:22 | RAD ---
HISTORY: cough, fever COMPARISON: 04/23/2017 FINDINGS: LUNGS: No active pulmonary disease. PLEURA: No significant pleural effusion identified, no pneumothorax apparent. CARDIOVASCULAR: No radiographic findings to suggest acute or significant cardiovascular disease. OSSEOUS STRUCTURES: No significant abnormalities. VISUALIZED UPPER ABDOMEN: Normal. OTHER FINDINGS: None. IMPRESSION: No active disease. No significant interval change compared to the prior examination(s).
--- NOTE | 2017-08-09 11:24 | CARD ---
APPROVED REPORT EKG Measurement Heart [id number] <Conclusion> Normal sinus rhythm with sinus arrhythmia Normal ECG
--- NOTE | 2017-08-09 17:34 | CP.PCM.CON ---
History of Present Illness - History of Present Illness History of Present Illness: 27 year old male with PMH of idiopathic thrombocytopenia came in to [facility] complaining of headache and fever for the past 1-2 days. He has some epistaxis but no rhinorrhea, no sore throat, no cough or colds, no nausea or vomiting, no blurring of vision, no photophobia, has some neck pain on flexion, no abdominal painm no diarrhea, no dysuria. He does not recall specific sick contacts, denies animal contacts, denies recent travel outside of [place] in the past 3 months. Infectious Diseases consult is requested to further evaluate and manage. Review of Systems - Review of Systems All systems: reviewed and no additional remarkable complaints except (as per HPI ) Past Patient History - Infectious Disease Hx of Infectious Diseases: None - Past Medical History & Family History Past Medical History?: Yes - Past Social History Smoking Status: Former Smoker - CARDIAC Hx Cardiac Disorders: No - PULMONARY Hx Respiratory Disorders: No - NEUROLOGICAL Hx Neurological Disorder: No - HEENT Hx HEENT Problems: No - RENAL Hx Chronic Kidney Disease: No - ENDOCRINE/METABOLIC Hx Endocrine Disorders: No - HEMATOLOGICAL/ONCOLOGICAL Hx Blood Disorders: Yes Other/Comment: Thrombocytopenia - INTEGUMENTARY Hx Dermatological Problems: No - MUSCULOSKELETAL/RHEUMATOLOGICAL Hx Falls: No - GASTROINTESTINAL Hx Gastrointestinal Disorders: No - GENITOURINARY/GYNECOLOGICAL Hx Genitourinary Disorders: No - PSYCHIATRIC Hx Substance Use: (marijuana) - SURGICAL HISTORY Hx Surgeries: No - ANESTHESIA Hx Anesthesia: No Meds Allergies/Adverse Reactions: Allergies Allergy/AdvReac Type Severity Reaction Status Date / Time ibuprofen Allergy RASH Verified 08/08/17 22:08 - Medications Medications: Current Medications Acetaminophen (Tylenol 325mg Tab) 650 mg PO Q4 PRN PRN Reason: Fever >100.4 F Last Admin: 08/09/17 01:45 Dose: 650 mg Benztropine Mesylate (Cogentin) 1 mg PO BID [facility] Ceftriaxone Sodium (Rocephin 2 Gm Ivpb) 2 gm in 100 mls @ 100 mls/hr IVPB Q12 [facility] PRN Reason: Protocol Sodium Chloride (Sodium Chloride 0.9%) 1,000 mls @ 150 mls/hr IV .Q6H40M [facility] Last Admin: 08/09/17 00:49 Dose: 150 mls/hr Vancomycin HCl (Vancomycin 1gm) 1 gm in 250 mls @ 167 mls/hr IVPB Q12H [facility] PRN Reason: Protocol Last Admin: 08/09/17 00:18 Dose: Not Given Lorazepam (Ativan) 0.5 mg PO BID [facility] PRN Reason: Protocol Mirtazapine (Remeron) 15 mg PO HS [facility] Ondansetron HCl (Zofran Inj) 4 mg IVP Q4H PRN PRN Reason: Nausea/Vomiting Pantoprazole Sodium (Protonix Ec Tab) 40 mg PO 0600 [facility] Risperidone (Risperdal Tab) 1 mg PO BID [facility] PRN Reason: Protocol Physical Exam - Constitutional Appears: Non-toxic - Head Exam Head Exam: NORMAL INSPECTION - Neck Exam Neck exam: Positive for: Meningismus (mild) - Respiratory Exam Respiratory Exam: Decreased Breath Sounds - Cardiovascular Exam Cardiovascular Exam: +S1, +S2 - GI/Abdominal Exam GI & Abdominal Exam: Soft. absent: Tenderness Results - Vital Signs Recent Vital Signs: Last Vital Signs Temp 102 F H 08/09/17 04:19 Pulse 82 08/09/17 04:19 Resp 18 08/09/17 04:19 BP 131/80 08/09/17 04:19 Pulse Ox 99 08/09/17 01:45 - Labs Result Diagrams: 08/09/17 06:50 08/09/17 06:50 Labs: Laboratory Results - last 24 hr 08/08/17 08/08/17 08/08/17 23:26 23:35 23:35 pO2 VBG pH VBG pCO2 VBG HCO3 VBG Total CO2 VBG O2 Sat (Calc) VBG Base Excess VBG Potassium Sodium Chloride Glucose Lactate FiO2 Venous Blood Potassium Urine Color Straw Urine Appearance Clear Urine pH 8.0 Ur Specific [place] 1.015 Urine Protein Negative Urine Glucose (UA) Negative Urine Ketones Negative Urine Blood Negative Urine Nitrate Negative Urine Bilirubin Negative Urine Urobilinogen 0.2 Ur Leukocyte Esterase Negative Fluid Type Spinal fluid CSF Volume 1 CSF Appearance Clear/colorless CSF WBC 383.9 H CSF RBC 3.9 H CSF Total Cell Counted 100 H CSF Neutrophils 88 H CSF Lymphocytes 12.0 H CSF Monos/Macrophages TEST NOT PERFORMED CSF Comment TEST NOT PERFORMED CSF Glucose 44 CSF Total Protein 99.0 H Urine Opiates Screen Urine Methadone Screen Ur Barbiturates Screen Ur Phencyclidine Scrn Ur Amphetamines Screen U Benzodiazepines Scrn U Oth Cocaine Metabols U Cannabinoids Screen 08/09/17 08/09/17 01:45 03:25 pO2 48 VBG pH 7.38 VBG pCO2 43.0 VBG HCO3 25.4 VBG Total CO2 26.7 VBG O2 Sat (Calc) 89.6 H VBG Base Excess 0.0 VBG Potassium 4.0 Sodium 140.0 Chloride 108.0 H Glucose 86 Lactate 2.9 H FiO2 21.0 Venous Blood Potassium 4.0 Urine Color Urine Appearance Urine pH Ur Specific [place] Urine Protein Urine Glucose (UA) Urine Ketones Urine Blood Urine Nitrate Urine Bilirubin Urine Urobilinogen Ur Leukocyte Esterase Fluid Type CSF Volume CSF Appearance CSF WBC CSF RBC CSF Total Cell Counted CSF Neutrophils CSF Lymphocytes CSF Monos/Macrophages CSF Comment CSF Glucose CSF Total Protein Urine Opiates Screen Negative Urine Methadone Screen Negative Ur Barbiturates Screen Negative Ur Phencyclidine Scrn Negative Ur Amphetamines Screen Negative U Benzodiazepines Scrn Negative U Oth Cocaine Metabols Negative U Cannabinoids Screen Negative Assessment & Plan - Assessment and Plan (Free Text) Plan: Assessment Consider acute meningitis, R/O bacterial R/O viral idiopathic thrombocytopenia Plan reviewed CSF - 383 WBC's with predominance of neutrophils but also with 12% lymphocytes - follow up blood cx, CSF cx, CSF for CMV PCR, VDRL, Crypt Ag, HSV PCR HIV test is negative started patient on Vancomycin, Rocephin, Acyclovir and Dexamethasone will monitor clinically
[2017-08-09] MEDS: Dexamethasone 12 MG in Sodium Chloride 0.9% 50 ML IV SCH (18:26)
[2017-08-10] MEDS: Vancomycin 1gm in NS 250ml 1 GM/250 ML BAG IVPB SCH ×2 (00:28→12:47)
[2017-08-10] MEDS: Sodium Chloride 0.9% 1,000 ML IV SCH ×2 (05:04→19:29)
[2017-08-10] MEDS: Pantoprazole 40 mg EC Tab PO SCH (05:04)
[2017-08-10 07:20] LABS: HEMOGLOBIN 13.8 g/dL (14.0-18.0); MEAN CELL VOLUME 81.3 fl (80.0-105.0); MEAN CORPUSCULAR HEMOGLOBIN 27.4 pg (25.0-35.0); MEAN CORPUSCULAR HGB CONC 33.7 g/dl (31.0-37.0); MEAN PLATELET VOLUME 10.3 fl (7.0-11.0); RBC 5.04 10^6/uL (3.5-6.1); RED CELL DISTRIBUTION WIDTH 13.7 % (11.5-14.5); WHITE BLOOD COUNT 8.4 10^3/ul (4.5-11.0)
[2017-08-10 07:33] LABS: INR 1.18 (0.93-1.08); PROTHROMBIN TIME 13.6 SECONDS (9.4-12.5)
--- NOTE | 2017-08-10 07:37 | CP.PCM.PN ---
<John Romo - Last Filed: 08/10/17 16:52> Subjective - Date & Time of Evaluation Date of Evaluation: 08/10/17 Time of Evaluation: 07:34 - Subjective Subjective: John Romo DO, PGY-1: Hospitalist Service Patient seen and examined at bedside. Overnight nurse reports patient remained afebrile without the need of a cooling blank, ice pack, or Tylenol. Patient reports headache and neck pain have diminished in intensity. Patient is eating food, passing regular bowel movements, and denies pain with urination. Furthermore, he denies any bleeding from his gums or any new kind of rash. Objective - Vital Signs/Intake and Output Vital Signs (last 24 hours): Temp Pulse Resp BP Pulse Ox 98 F 65 16 135/63 100 08/09/17 22:00 08/09/17 22:00 08/09/17 22:00 08/09/17 22:00 08/09/17 22:00 Intake and Output: 08/10/17 08/10/17 06:59 18:59 Intake Total 1380 Balance 1380 - Medications Medications: Current Medications Acetaminophen (Tylenol 325mg Tab) 650 mg PO Q4 PRN PRN Reason: Fever >100.4 F Last Admin: 08/09/17 14:59 Dose: 650 mg Acetaminophen (Tylenol 325mg Tab) 650 mg PO Q4 PRN PRN Reason: Headache Benztropine Mesylate (Cogentin) 1 mg PO BID [facility] Last Admin: 08/09/17 17:49 Dose: 1 mg Ceftriaxone Sodium (Rocephin 2 Gm Ivpb) 2 gm in 100 mls @ 100 mls/hr IVPB Q12 [facility] PRN Reason: Protocol Last Admin: 08/09/17 22:45 Dose: 100 mls/hr Sodium Chloride (Sodium Chloride 0.9%) 1,000 mls @ 150 mls/hr IV .Q6H40M [facility] Last Admin: 08/10/17 05:04 Dose: 150 mls/hr Vancomycin HCl (Vancomycin 1gm) 1 gm in 250 mls @ 167 mls/hr IVPB Q12H [facility] PRN Reason: Protocol Last Admin: 08/10/17 00:28 Dose: 167 mls/hr Acyclovir 700 mg/ Sodium (Chloride) 100 mls @ 100 mls/hr IV Q8 [facility] PRN Reason: Protocol Last Admin: 08/10/17 05:04 Dose: 100 mls/hr Dexamethasone 12 mg/ Sodium (Chloride) 53 mls @ 150 mls/hr IV BID [facility] Last Admin: 08/09/17 18:26 Dose: 150 mls/hr Lorazepam (Ativan) 0.5 mg PO BID [facility] PRN Reason: Protocol Last Admin: 08/09/17 17:49 Dose: 0.5 mg Mirtazapine (Remeron) 15 mg PO HS [facility] Last Admin: 08/09/17 22:46 Dose: 15 mg Ondansetron HCl (Zofran Inj) 4 mg IVP Q4H PRN PRN Reason: Nausea/Vomiting Pantoprazole Sodium (Protonix Ec Tab) 40 mg PO 0600 [facility] Last Admin: 08/10/17 05:04 Dose: 40 mg Risperidone (Risperdal Tab) 1 mg PO BID [facility] PRN Reason: Protocol Last Admin: 08/09/17 17:49 Dose: 1 mg - Labs Labs: 08/10/17 06:30 08/09/17 06:50 PT 13.6 SECONDS (9.4-12.5) H 08/10/17 06:30 INR 1.18 (0.93-1.08) H 08/10/17 06:30 APTT 27.7 Seconds (25.1-36.5) 08/08/17 21:50 - Constitutional Appears: Non-toxic, No Acute Distress - Head Exam Head Exam: ATRAUMATIC, NORMOCEPHALIC - Eye Exam Eye Exam: Nystagmus - ENT Exam ENT Exam: Mucous Membranes Moist, Normal Oropharynx - Neck Exam Neck Exam: absent: Tenderness - Respiratory Exam Respiratory Exam: Clear to Ausculation Bilateral, NORMAL BREATHING PATTERN - Cardiovascular Exam Cardiovascular Exam: RRR, +S1, +S2 - Extremities Exam Extremities Exam: Normal Inspection - Back Exam Back Exam: NORMAL INSPECTION. absent: CVA tenderness (L), CVA tenderness (R) - Neurological Exam Neurological Exam: Alert, Awake, Oriented x3 - Psychiatric Exam Psychiatric exam: Normal Affect, Normal Mood - Skin Skin Exam: Dry, Intact, Normal Color, Warm Assessment and Plan - Assessment and Plan (Free Text) Assessment: 27 year old male with a past medical history of idiopathic thrombocytopenia and an affective disorder, unspecified who presents with 1.5 days of a throbbing headache, fever, neck pain and laboratory findings consistent with meningitis. Plan: 1) Meningitis - Vancomycin - Acyclovir - Dexamethasone - Ceftriaxone - NS at 150 ml/hr - Tylenol 650 for fever and for headache - Zofran PRN - CSF CMV, Cryptococcus, HSV1/2, and VDRL pending - Preliminary blood culture negative; urine culture negative, Grp A strep throat culture negative - Influenzae A and B negative; serology for HIV and Grp A beta-hemolytic strep negative - CSF cytology shows neutrophils, lymphocytes, and a few red blood cells 2) Affective disorder - Remeron 15 mg HS - Cogentin 1 mg BID - Risperidone 1 mg PO BID - Ativan 0.5 mg PO BID 3) DVT/GI prophylaxis - SCD - Protonix 40 mg IVP daily Case seen and discussed with attending physician, Dr. Akins <John Akins - Last Filed: 08/11/17 15:12> Objective - Vital Signs/Intake and Output Vital Signs (last 24 hours): Temp Pulse Resp BP Pulse Ox 97.8 F 55 L 16 110/68 100 08/11/17 08:00 08/11/17 08:00 08/11/17 08:00 08/11/17 08:00 08/11/17 08:00 Intake and Output: 08/11/17 08/11/17 06:59 18:59 Intake Total 3000 960 Output Total 400 400 Balance 2600 560 - Medications Medications: Current Medications Acetaminophen (Tylenol 325mg Tab) 650 mg PO Q4 PRN PRN Reason: Fever >100.4 F Last Admin: 08/09/17 14:59 Dose: 650 mg Acetaminophen (Tylenol 325mg Tab) 650 mg PO Q4 PRN PRN Reason: Headache Benztropine Mesylate (Cogentin) 1 mg PO BID [facility] Last Admin: 08/11/17 10:38 Dose: 1 mg Sodium Chloride (Sodium Chloride 0.9%) 1,000 mls @ 150 mls/hr IV .Q6H40M [facility] Last Admin: 08/11/17 05:45 Dose: 150 mls/hr Dexamethasone 12 mg/ Sodium (Chloride) 53 mls @ 150 mls/hr IV BID [facility] Last Admin: 08/11/17 10:38 Dose: 150 mls/hr Lorazepam (Ativan) 0.5 mg PO BID [facility] PRN Reason: Protocol Last Admin: 08/11/17 10:38 Dose: 0.5 mg Mirtazapine (Remeron) 15 mg PO HS [facility] Last Admin: 08/10/17 22:17 Dose: 15 mg Ondansetron HCl (Zofran Inj) 4 mg IVP Q4H PRN PRN Reason: Nausea/Vomiting Pantoprazole Sodium (Protonix Ec Tab) 40 mg PO 0600 [facility] Last Admin: 08/11/17 05:11 Dose: 40 mg Risperidone (Risperdal Tab) 1 mg PO BID [facility] PRN Reason: Protocol Last Admin: 08/11/17 10:38 Dose: 1 mg - Labs Labs: 08/11/17 07:00 08/11/17 07:00 PT 12.8 SECONDS (9.4-12.5) H 08/11/17 07:00 INR 1.11 (0.93-1.08) H 08/11/17 07:00 APTT 27.7 Seconds (25.1-36.5) 08/08/17 21:50 Attending/Attestation - Attestation I have personally seen and examined this patient.: Yes I have fully participated in the care of the patient.: Yes I have reviewed all pertinent clinical information, including history, physical exam and plan: Yes Notes (Text): 08/11/17 15:07 Medical record note made by the resident after discussion with my direction and input after the patient was personally seen and examined by me. I have reviewed the chart and agree that the record accurately reflects by personal performance of the history, physical exam, data review, and medical decision-making, in the course for the patient. I have also personally directed the plan of care. 27 year old male with a past medical history of idiopathic thrombocytopenia and an affective disorder was admitted with throbbing headache, fever, neck pain , CSF protein was elevated , sugar was normal, has WBC in CSF with Neutrophil, could be early aseptic meningitis /bacterial on IV vancomycin/ceftriaxone and Acyclovir.CSF gram stain is negative, cultures are negative for any growth.We will follow up CSF cultures, Patient is clinically improved, if cultures remain negative, antibiotics can be discontinued.Patient case was discussed with ID. Management plan was discussed in detail with patient. Education was provided.
[2017-08-10 07:59] LABS: ALBUMIN 3.9 g/dL (3.0-4.8); ALT/SGPT 36 U/L (7-56); AST/SGOT 28 U/L (17-59); BLOOD UREA NITROGEN 10 mg/dL (7-21); CALCIUM 9.6 mg/dL (8.4-10.5); GFR AFRICAN-AMERICAN > 60; GFR NON-AFRICAN AMERICAN > 60
[2017-08-10] MEDS: Dexamethasone 12 MG in Sodium Chloride 0.9% 50 ML IV SCH ×2 (09:50→17:14)
[2017-08-10] MEDS: cefTRIAXone 2 GM IN NS 2 GM/100 ML BAG IVPB SCH ×2 (09:50→22:49)
--- NOTE | 2017-08-10 16:42 | CP.PCM.PN ---
Subjective - Date & Time of Evaluation Date of Evaluation: 08/10/17 Time of Evaluation: 12:40 - Subjective Subjective: Headache has improved, no fevers. Objective - Vital Signs/Intake and Output Vital Signs (last 24 hours): Temp Pulse Resp BP Pulse Ox 98.6 F 85 16 121/76 96 08/10/17 06:00 08/10/17 06:00 08/10/17 06:00 08/10/17 06:00 08/10/17 06:00 Intake and Output: 08/10/17 08/10/17 06:59 18:59 Intake Total 1380 Balance 1380 - Medications Medications: Current Medications Acetaminophen (Tylenol 325mg Tab) 650 mg PO Q4 PRN PRN Reason: Fever >100.4 F Last Admin: 08/09/17 14:59 Dose: 650 mg Acetaminophen (Tylenol 325mg Tab) 650 mg PO Q4 PRN PRN Reason: Headache Benztropine Mesylate (Cogentin) 1 mg PO BID [facility] Last Admin: 08/09/17 17:49 Dose: 1 mg Ceftriaxone Sodium (Rocephin 2 Gm Ivpb) 2 gm in 100 mls @ 100 mls/hr IVPB Q12 [facility] PRN Reason: Protocol Last Admin: 08/09/17 22:45 Dose: 100 mls/hr Sodium Chloride (Sodium Chloride 0.9%) 1,000 mls @ 150 mls/hr IV .Q6H40M [facility] Last Admin: 08/10/17 05:04 Dose: 150 mls/hr Vancomycin HCl (Vancomycin 1gm) 1 gm in 250 mls @ 167 mls/hr IVPB Q12H [facility] PRN Reason: Protocol Last Admin: 08/10/17 00:28 Dose: 167 mls/hr Acyclovir 700 mg/ Sodium (Chloride) 100 mls @ 100 mls/hr IV Q8 [facility] PRN Reason: Protocol Last Admin: 08/10/17 05:04 Dose: 100 mls/hr Dexamethasone 12 mg/ Sodium (Chloride) 53 mls @ 150 mls/hr IV BID [facility] Last Admin: 08/09/17 18:26 Dose: 150 mls/hr Lorazepam (Ativan) 0.5 mg PO BID [facility] PRN Reason: Protocol Last Admin: 08/09/17 17:49 Dose: 0.5 mg Mirtazapine (Remeron) 15 mg PO HS [facility] Last Admin: 08/09/17 22:46 Dose: 15 mg Ondansetron HCl (Zofran Inj) 4 mg IVP Q4H PRN PRN Reason: Nausea/Vomiting Pantoprazole Sodium (Protonix Ec Tab) 40 mg PO 0600 [facility] Last Admin: 08/10/17 05:04 Dose: 40 mg Risperidone (Risperdal Tab) 1 mg PO BID [facility] PRN Reason: Protocol Last Admin: 08/09/17 17:49 Dose: 1 mg - Labs Labs: 08/10/17 06:30 08/10/17 06:30 PT 13.6 SECONDS (9.4-12.5) H 08/10/17 06:30 INR 1.18 (0.93-1.08) H 08/10/17 06:30 APTT 27.7 Seconds (25.1-36.5) 08/08/17 21:50 - Constitutional Appears: Non-toxic - Head Exam Head Exam: NORMAL INSPECTION - ENT Exam ENT Exam: Mucous Membranes Moist - Neck Exam Neck Exam: absent: Meningismus - Respiratory Exam Respiratory Exam: Decreased Breath Sounds - Cardiovascular Exam Cardiovascular Exam: +S1, +S2 - GI/Abdominal Exam GI & Abdominal Exam: Soft. absent: Tenderness Assessment and Plan - Assessment and Plan (Free Text) Plan: Assessment Consider acute meningitis, R/O bacterial R/O viral idiopathic thrombocytopenia Plan reviewed CSF - 383 WBC's with predominance of neutrophils but also with 12% lymphocytes - follow up blood cx, CSF for CMV PCR, VDRL, Crypt Ag, HSV PCR CSF cx are negative so far HIV test is negative continue Vancomycin, Rocephin, Acyclovir and Dexamethasone day 2 for now will continue to monitor clinically
[2017-08-11] MEDS: Vancomycin 1gm in NS 250ml 1 GM/250 ML BAG IVPB SCH ×2 (00:30→12:30)
[2017-08-11] MEDS: Pantoprazole 40 mg EC Tab PO SCH (05:11)
[2017-08-11] MEDS: Sodium Chloride 0.9% 1,000 ML IV SCH (05:45)
[2017-08-11 07:45] LABS: HEMOGLOBIN 13.4 g/dL (14.0-18.0); MEAN CELL VOLUME 81.8 fl (80.0-105.0); MEAN CORPUSCULAR HEMOGLOBIN 27.4 pg (25.0-35.0); MEAN CORPUSCULAR HGB CONC 33.5 g/dl (31.0-37.0); RBC 4.89 10^6/uL (3.5-6.1); RED CELL DISTRIBUTION WIDTH 13.8 % (11.5-14.5); WHITE BLOOD COUNT 10.9 10^3/ul (4.5-11.0)
[2017-08-11 07:51] LABS: INR 1.11 (0.93-1.08); PROTHROMBIN TIME 12.8 SECONDS (9.4-12.5)
[2017-08-11 08:01] LABS: ALB/GLOB RATIO 0.9 (1.1-1.8); ALBUMIN 3.5 g/dL (3.0-4.8); ALT/SGPT 42 U/L (7-56); AST/SGOT 31 U/L (17-59); BLOOD UREA NITROGEN 11 mg/dL (7-21); CALCIUM 9.5 mg/dL (8.4-10.5); GFR AFRICAN-AMERICAN > 60; GFR NON-AFRICAN AMERICAN > 60
[2017-08-11] MEDS: cefTRIAXone 2 GM IN NS 2 GM/100 ML BAG IVPB SCH (10:38)
[2017-08-11] MEDS: Dexamethasone 12 MG in Sodium Chloride 0.9% 50 ML IV SCH (10:38)
[2017-08-11 10:55] LABS: SPECIMEN SOURCE CSF
--- NOTE | 2017-08-11 13:38 | CP.PCM.PN ---
<John Romo - Last Filed: 08/11/17 13:41> Subjective - Date & Time of Evaluation Date of Evaluation: 08/11/17 Time of Evaluation: 06:15 - Subjective Subjective: John Romo DO, PGY-1: Hospitalist Service Patient seen and examined at bedside. Overnight nurse reports patient remained afebrile without the need of a cooling blank, ice pack, or Tylenol. Patient reports complete resolution of headache and neck pain. Patient is eating food, passing regular bowel movements, and denies pain with urination. Furthermore, he denies any bleeding from his gums or any new kind of rash. Objective - Vital Signs/Intake and Output Vital Signs (last 24 hours): Temp Pulse Resp BP Pulse Ox 97.8 F 55 L 16 110/68 100 08/11/17 08:00 08/11/17 08:00 08/11/17 08:00 08/11/17 08:00 08/11/17 08:00 Intake and Output: 08/11/17 08/11/17 06:59 18:59 Intake Total 3000 Output Total 400 Balance 2600 - Medications Medications: Current Medications Acetaminophen (Tylenol 325mg Tab) 650 mg PO Q4 PRN PRN Reason: Fever >100.4 F Last Admin: 08/09/17 14:59 Dose: 650 mg Acetaminophen (Tylenol 325mg Tab) 650 mg PO Q4 PRN PRN Reason: Headache Benztropine Mesylate (Cogentin) 1 mg PO BID [facility] Last Admin: 08/11/17 10:38 Dose: 1 mg Ceftriaxone Sodium (Rocephin 2 Gm Ivpb) 2 gm in 100 mls @ 100 mls/hr IVPB Q12 [facility] PRN Reason: Protocol Last Admin: 08/11/17 10:38 Dose: 100 mls/hr Sodium Chloride (Sodium Chloride 0.9%) 1,000 mls @ 150 mls/hr IV .Q6H40M [facility] Last Admin: 08/11/17 05:45 Dose: 150 mls/hr Vancomycin HCl (Vancomycin 1gm) 1 gm in 250 mls @ 167 mls/hr IVPB Q12H [facility] PRN Reason: Protocol Last Admin: 08/11/17 00:30 Dose: 167 mls/hr Acyclovir 700 mg/ Sodium (Chloride) 100 mls @ 100 mls/hr IV Q8 [facility] PRN Reason: Protocol Last Admin: 08/11/17 05:10 Dose: 100 mls/hr Dexamethasone 12 mg/ Sodium (Chloride) 53 mls @ 150 mls/hr IV BID [facility] Last Admin: 08/11/17 10:38 Dose: 150 mls/hr Lorazepam (Ativan) 0.5 mg PO BID [facility] PRN Reason: Protocol Last Admin: 08/11/17 10:38 Dose: 0.5 mg Mirtazapine (Remeron) 15 mg PO HS [facility] Last Admin: 08/10/17 22:17 Dose: 15 mg Ondansetron HCl (Zofran Inj) 4 mg IVP Q4H PRN PRN Reason: Nausea/Vomiting Pantoprazole Sodium (Protonix Ec Tab) 40 mg PO 0600 [facility] Last Admin: 08/11/17 05:11 Dose: 40 mg Risperidone (Risperdal Tab) 1 mg PO BID [facility] PRN Reason: Protocol Last Admin: 08/11/17 10:38 Dose: 1 mg - Labs Labs: 08/11/17 07:00 08/11/17 07:00 PT 12.8 SECONDS (9.4-12.5) H 08/11/17 07:00 INR 1.11 (0.93-1.08) H 08/11/17 07:00 APTT 27.7 Seconds (25.1-36.5) 08/08/17 21:50 - Constitutional Appears: Well, Non-toxic - Head Exam Head Exam: ATRAUMATIC, NORMOCEPHALIC - Eye Exam Additional comments: strabismus - ENT Exam ENT Exam: Mucous Membranes Moist, Normal Oropharynx - Neck Exam Neck Exam: Normal Inspection - Respiratory Exam Respiratory Exam: Clear to Ausculation Bilateral, NORMAL BREATHING PATTERN. absent: Accessory Muscle Use - Cardiovascular Exam Cardiovascular Exam: RRR, +S1, +S2 - GI/Abdominal Exam GI & Abdominal Exam: Soft, Normal Bowel Sounds - Extremities Exam Extremities Exam: Normal Capillary Refill, Normal Inspection - Back Exam Back Exam: NORMAL INSPECTION. absent: CVA tenderness (L), CVA tenderness (R) - Neurological Exam Neurological Exam: Alert, Awake, Oriented x3 - Psychiatric Exam Psychiatric exam: Normal Affect, Normal Mood - Skin Skin Exam: Dry, Intact, Normal Color, Warm Assessment and Plan - Assessment and Plan (Free Text) Assessment: 27 year old male with a past medical history of idiopathic thrombocytopenia and an affective disorder, unspecified who presents with 1.5 days of a throbbing headache, fever, neck pain and laboratory findings consistent with meningitis. Plan: 1) Aseptic Meningitis - Vancomycin - Acyclovir - Dexamethasone - Ceftriaxone - NS at 150 ml/hr - Tylenol 650 for fever and for headache - Zofran PRN - CSF Cryptococcus, HSV1/2, and VDRL all negative or undetected. - CSF CMV PCR pending - Preliminary blood culture negative; urine culture negative, Grp A strep throat culture negative. - Influenzae A and B negative; serology for HIV and Grp A beta-hemolytic strep negative. - CSF cytology shows neutrophils, lymphocytes, and a few red blood cells. 2) Affective disorder - Remeron 15 mg HS - Cogentin 1 mg BID - Risperidone 1 mg PO BID - Ativan 0.5 mg PO BID 3) DVT/GI prophylaxis - SCD - Protonix 40 mg IVP daily Case seen and discussed with attending physician, Dr. Akins <John Akins - Last Filed: 08/11/17 15:22> Objective - Vital Signs/Intake and Output Vital Signs (last 24 hours): Temp Pulse Resp BP Pulse Ox 97.8 F 55 L 16 110/68 100 08/11/17 08:00 08/11/17 08:00 08/11/17 08:00 08/11/17 08:00 08/11/17 08:00 Intake and Output: 08/11/17 08/11/17 06:59 18:59 Intake Total 3000 960 Output Total 400 400 Balance 2600 560 - Medications Medications: Current Medications Acetaminophen (Tylenol 325mg Tab) 650 mg PO Q4 PRN PRN Reason: Fever >100.4 F Last Admin: 08/09/17 14:59 Dose: 650 mg Acetaminophen (Tylenol 325mg Tab) 650 mg PO Q4 PRN PRN Reason: Headache Benztropine Mesylate (Cogentin) 1 mg PO BID [facility] Last Admin: 08/11/17 10:38 Dose: 1 mg Sodium Chloride (Sodium Chloride 0.9%) 1,000 mls @ 150 mls/hr IV .Q6H40M [facility] Last Admin: 08/11/17 05:45 Dose: 150 mls/hr Dexamethasone 12 mg/ Sodium (Chloride) 53 mls @ 150 mls/hr IV BID [facility] Last Admin: 08/11/17 10:38 Dose: 150 mls/hr Lorazepam (Ativan) 0.5 mg PO BID [facility] PRN Reason: Protocol Last Admin: 08/11/17 10:38 Dose: 0.5 mg Mirtazapine (Remeron) 15 mg PO HS [facility] Last Admin: 08/10/17 22:17 Dose: 15 mg Ondansetron HCl (Zofran Inj) 4 mg IVP Q4H PRN PRN Reason: Nausea/Vomiting Pantoprazole Sodium (Protonix Ec Tab) 40 mg PO 0600 [facility] Last Admin: 08/11/17 05:11 Dose: 40 mg Risperidone (Risperdal Tab) 1 mg PO BID [facility] PRN Reason: Protocol Last Admin: 08/11/17 10:38 Dose: 1 mg - Labs Labs: 08/11/17 07:00 08/11/17 07:00 PT 12.8 SECONDS (9.4-12.5) H 08/11/17 07:00 INR 1.11 (0.93-1.08) H 08/11/17 07:00 APTT 27.7 Seconds (25.1-36.5) 08/08/17 21:50 Attending/Attestation - Attestation I have personally seen and examined this patient.: Yes I have fully participated in the care of the patient.: Yes I have reviewed all pertinent clinical information, including history, physical exam and plan: Yes Notes (Text): 08/11/17 15:13 Medical record note made by the resident after discussion with my direction and input after the patient was personally seen and examined by me. I have reviewed the chart and agree that the record accurately reflects by personal performance of the history, physical exam, data review, and medical decision-making, in the course for the patient. I have also personally directed the plan of care. 27 year old male with a past medical history of idiopathic thrombocytopenia and an affective disorder was admitted with throbbing headache, fever, neck pain , CSF protein was elevated , sugar was normal, had WBC in CSF with Neutrophil, could be early aseptic meningitis , was treated with IV vancomycin/ceftriaxone and Acyclovir. CSF gram stain ,cultures are negative.CSF HSV is negative.Patient was evaluated by ID and antibiotics has been discontinued.Patient symptoms are likely due to aseptic meningititis.He is afebrile.Headache has improved.He is ambulatory.There is no Neuro deficit.He will be discharged home and will follow up with PCP Management plan was discussed in detail with patient. Education was provided.
--- NOTE | 2017-08-11 14:37 | CP.PCM.PN ---
Subjective - Date & Time of Evaluation Date of Evaluation: 08/11/17 Time of Evaluation: 12:55 - Subjective Subjective: Headache is much improved, no fevers, no nausea, no diarrhea, no cough or rhinorrhea. Objective - Vital Signs/Intake and Output Vital Signs (last 24 hours): Temp Pulse Resp BP Pulse Ox 97.8 F 55 L 16 110/68 100 08/11/17 08:00 08/11/17 08:00 08/11/17 08:00 08/11/17 08:00 08/11/17 08:00 Intake and Output: 08/11/17 08/11/17 06:59 18:59 Intake Total 3000 Output Total 400 Balance 2600 - Medications Medications: Current Medications Acetaminophen (Tylenol 325mg Tab) 650 mg PO Q4 PRN PRN Reason: Fever >100.4 F Last Admin: 08/09/17 14:59 Dose: 650 mg Acetaminophen (Tylenol 325mg Tab) 650 mg PO Q4 PRN PRN Reason: Headache Benztropine Mesylate (Cogentin) 1 mg PO BID COUNTS INCLUDE 234 BEDS AT THE [facility] Last Admin: 08/11/17 10:38 Dose: 1 mg Ceftriaxone Sodium (Rocephin 2 Gm Ivpb) 2 gm in 100 mls @ 100 mls/hr IVPB Q12 ERASMO PRN Reason: Protocol Last Admin: 08/11/17 10:38 Dose: 100 mls/hr Sodium Chloride (Sodium Chloride 0.9%) 1,000 mls @ 150 mls/hr IV .Q6H40M COUNTS INCLUDE 234 BEDS AT THE [facility] Last Admin: 08/11/17 05:45 Dose: 150 mls/hr Vancomycin HCl (Vancomycin 1gm) 1 gm in 250 mls @ 167 mls/hr IVPB Q12H COUNTS INCLUDE 234 BEDS AT THE [facility] PRN Reason: Protocol Last Admin: 08/11/17 00:30 Dose: 167 mls/hr Acyclovir 700 mg/ Sodium (Chloride) 100 mls @ 100 mls/hr IV Q8 COUNTS INCLUDE 234 BEDS AT THE [facility] PRN Reason: Protocol Last Admin: 08/11/17 05:10 Dose: 100 mls/hr Dexamethasone 12 mg/ Sodium (Chloride) 53 mls @ 150 mls/hr IV BID COUNTS INCLUDE 234 BEDS AT THE [facility] Last Admin: 08/11/17 10:38 Dose: 150 mls/hr Lorazepam (Ativan) 0.5 mg PO BID COUNTS INCLUDE 234 BEDS AT THE [facility] PRN Reason: Protocol Last Admin: 08/11/17 10:38 Dose: 0.5 mg Mirtazapine (Remeron) 15 mg PO HS ERASMO Last Admin: 08/10/17 22:17 Dose: 15 mg Ondansetron HCl (Zofran Inj) 4 mg IVP Q4H PRN PRN Reason: Nausea/Vomiting Pantoprazole Sodium (Protonix Ec Tab) 40 mg PO 0600 ERASMO Last Admin: 08/11/17 05:11 Dose: 40 mg Risperidone (Risperdal Tab) 1 mg PO BID ERASMO PRN Reason: Protocol Last Admin: 08/11/17 10:38 Dose: 1 mg - Labs Labs: 08/11/17 07:00 08/11/17 07:00 PT 12.8 SECONDS (9.4-12.5) H 08/11/17 07:00 INR 1.11 (0.93-1.08) H 08/11/17 07:00 APTT 27.7 Seconds (25.1-36.5) 08/08/17 21:50 - Constitutional Appears: Non-toxic, No Acute Distress - Head Exam Head Exam: NORMAL INSPECTION - ENT Exam ENT Exam: Mucous Membranes Moist - Neck Exam Neck Exam: absent: Meningismus - Respiratory Exam Respiratory Exam: absent: Rales, Rhonchi - Cardiovascular Exam Cardiovascular Exam: +S1, +S2 - GI/Abdominal Exam GI & Abdominal Exam: Soft. 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
[2017-08-11 15:30] VITALS: BP 103/68; PULSE 52; RESP 18; TEMP 98.7; O2SAT 97
--- NOTE | 2017-08-11 16:03 | CP.PCM.DIS ---
<John Romo - Last Filed: 08/11/17 16:09> Provider - Provider Date of Admission: 08/08/17 22:45 Attending physician: John Akins MD Primary care physician: Jameel Camacho MD Consults: Dr. Minaya Time Spent in preparation of Discharge (in minutes): 40 Hospital Course - Lab Results Lab Results: Micro Results 08/08/17 23:35 Cerebral Spinal Fluid Gram Stain - Final 08/08/17 23:35 Cerebral Spinal Fluid CSF Culture - Preliminary NO GROWTH AFTER 2 DAYS 08/08/17 23:26 Urine Urine Culture - Final No Growth (<1,000 CFU/ML) Most Recent Lab Values WBC 10.9 10^3/ul (4.5-11.0) D 08/11/17 07:00 RBC 4.89 10^6/uL (3.5-6.1) 08/11/17 07:00 Hgb 13.4 g/dL (14.0-18.0) L 08/11/17 07:00 Hct 40.0 % (42.0-52.0) L 08/11/17 07:00 MCV 81.8 fl (80.0-105.0) 08/11/17 07:00 MCH 27.4 pg (25.0-35.0) 08/11/17 07:00 MCHC 33.5 g/dl (31.0-37.0) 08/11/17 07:00 RDW 13.8 % (11.5-14.5) 08/11/17 07:00 Plt Count 168 10^3/uL (120.0-450.0) 08/11/17 07:00 MPV 11.0 fl (7.0-11.0) 08/11/17 07:00 Gran % 89.8 % (50.0-68.0) H 08/08/17 21:50 Lymph % (Auto) 4.9 % (22.0-35.0) L 08/08/17 21:50 [place] % (Auto) 4.8 % (1.0-6.0) 08/08/17 21:50 Eos % (Auto) 0.2 % (1.5-5.0) L 08/08/17 21:50 Baso % (Auto) 0.3 % (0.0-3.0) 08/08/17 21:50 Gran # 9.64 (1.4-6.5) H 08/08/17 21:50 Lymph # (Auto) 0.5 (1.2-3.4) L 08/08/17 21:50 [place] # (Auto) 0.5 (0.1-0.6) 08/08/17 21:50 Eos # (Auto) 0.0 (0.0-0.7) 08/08/17 21:50 Baso # (Auto) 0.03 K/mm3 (0.0-2.0) 08/08/17 21:50 Neutrophils % (Manual) 86 % (50.0-70.0) H 08/08/17 21:50 Band Neutrophils % 6 % (0-2) H 08/08/17 21:50 Lymphocytes % (Manual) 6 % (22.0-35.0) L 08/08/17 21:50 Monocytes % (Manual) 2 % (1.0-6.0) 08/08/17 21:50 Platelet Evaluation Normal (NORMAL) 08/08/17 21:50 Anisocytosis (manual) Slight 08/08/17 21:50 PT 12.8 SECONDS (9.4-12.5) H 08/11/17 07:00 INR 1.11 (0.93-1.08) H 08/11/17 07:00 APTT 27.7 Seconds (25.1-36.5) 08/08/17 21:50 pO2 48 mm/Hg (30-55) 08/09/17 01:45 VBG pH 7.38 (7.32-7.43) 08/09/17 01:45 VBG pCO2 43.0 (40-60) 08/09/17 01:45 VBG HCO3 25.4 mmol/l (21-28) 08/09/17 01:45 VBG Total CO2 26.7 mmol.L (22-28) 08/09/17 01:45 VBG O2 Sat (Calc) 89.6 % (40-65) H 08/09/17 01:45 VBG Base Excess 0.0 mmol/L (0.0-2.0) 08/09/17 01:45 VBG Potassium 4.0 mmol/L (3.6-5.2) 08/09/17 01:45 Sodium 140.0 mmol/L (132-148) 08/09/17 01:45 Chloride 108.0 mmol/L (98-107) H 08/09/17 01:45 Glucose 86 mg/dl (75-110) 08/09/17 01:45 Lactate 2.9 mmol/L (0.7-2.1) H 08/09/17 01:45 FiO2 21.0 % 08/09/17 01:45 Sodium 141 mmol/L (132-148) 08/11/17 07:00 Potassium 4.1 mmol/L (3.6-5.0) 08/11/17 07:00 Chloride 110 mmol/L (98-107) H 08/11/17 07:00 Carbon Dioxide 24 mmol/L (21-33) 08/11/17 07:00 Anion Gap 12 (10-20) 08/11/17 07:00 BUN 11 mg/dL (7-21) 08/11/17 07:00 Creatinine 0.9 mg/dl (0.8-1.5) 08/11/17 07:00 Est GFR ( Amer) > 60 08/11/17 07:00 Est GFR (Non-Af Amer) > 60 08/11/17 07:00 Random Glucose 113 mg/dL (70-110) H 08/11/17 07:00 Calcium 9.5 mg/dL (8.4-10.5) 08/11/17 07:00 Phosphorus 3.2 mg/dL (2.5-4.5) 08/10/17 06:30 Magnesium 1.8 mg/dL (1.7-2.2) 08/10/17 06:30 Total Bilirubin 0.2 mg/dL (0.2-1.3) 08/11/17 07:00 AST 31 U/L (17-59) 08/11/17 07:00 ALT 42 U/L (7-56) 08/11/17 07:00 Alkaline Phosphatase 45 U/L (38-126) 08/11/17 07:00 Total Protein 7.3 g/dL (5.8-8.3) 08/11/17 07:00 Albumin 3.5 g/dL (3.0-4.8) 08/11/17 07:00 Globulin 3.8 gm/dL 08/11/17 07:00 Albumin/Globulin Ratio 0.9 (1.1-1.8) L 08/11/17 07:00 Venous Blood Potassium 4.0 mmol/L (3.6-5.2) 08/09/17 01:45 Urine Color Straw (YELLOW) 08/08/17 23: Urine Appearance Clear (CLEAR) 08/08/17 23: Urine pH 8.0 (4.7-8.0) 08/08/17 23: Ur Specific [place] 1.015 (1.005-1.035) 08/08/17 23: Urine Protein Negative mg/dL (<30 mg/dL) 08/08/17: Urine Glucose (UA) Negative mg/dL (NEGATIVE) 08/08/17 23: Urine Ketones Negative mg/dL (NEGATIVE) 08/08/17 23: Urine Blood Negative (NEGATIVE) 08/08/17 23: Urine Nitrate Negative (NEGATIVE) 08/08/17: Urine Bilirubin Negative (NEGATIVE) 08/08/17 23: Urine Urobilinogen 0.2 E.U./dL (<1 E.U./dL) 08/08/17 23: Ur Leukocyte Esterase Negative Luc/uL (NEGATIVE) 08/08/17 23: Fluid Type Spinal fluid 08/08/17 23:35 CSF Volume 1 mL (0-1) 08/08/17 23:35 CSF Appearance Clear/colorless (CLEAR) 08/08/17 23:35 CSF WBC 383.9 /uL (0.0-5.0) H 08/08/17 23:35 CSF RBC 3.9 /uL (0.0-0.0) H 08/08/17 23:35 CSF Total Cell Counted 100 (0-0) H 08/08/17 23:35 CSF Neutrophils 88 % (0-0) H 08/08/17: CSF Lymphocytes 12.0 % (0-0) H 08/08/17 23:35 CSF Monos/Macrophages TEST NOT PERFORMED 08/08/17 23:35 CSF Comment TEST NOT PERFORMED 08/08/17 23: CSF Glucose 44 mg/dL (40-70) 08/08/17 23:35 CSF Total Protein 99.0 mg/dL (12-60) H 08/08/17 23:35 CSF VDRL Nonreactive (Nonreactive) 08/09/17 06:10 CSF Cryptococcus Ag Not detected (Not Detected) 08/09/17 06:10 Urine Opiates Screen Negative (NEGATIVE) 08/09/17 03:25 Urine Methadone Screen Negative (NEGATIVE) 08/09/17 03:25 Ur Barbiturates Screen Negative (NEGATIVE) 08/09/17 03:25 Ur Phencyclidine Scrn Negative (NEGATIVE) 08/09/17 03:25 Ur Amphetamines Screen Negative (NEGATIVE) 08/09/17 03:25 U Benzodiazepines Scrn Negative (NEGATIVE) 08/09/17 03:25 U Oth Cocaine Metabols Negative (NEGATIVE) 08/09/17 03:25 U Cannabinoids Screen Negative (NEGATIVE) 08/09/17 03:25 RPR Nonreactive (NONREACTIVE) 08/10/17 09:43 HSV Source Description Csf 08/09/17 06:10 HSV I DNA PCR Not detected (Not Detected) 08/09/17 06:10 HSV II DNA PCR Not detected (Not Detected) 08/09/17 06:10 HIV 1&2 Antibody Screen Negative (NEGATIVE) 08/08/17 21:50 Influenza Typ A,B (EIA) Negative for flu a/b (NEGATIVE) 08/08/17 21:50 Grp A Beta Strep Ag Negative (NEGATIVE) 08/08/17 21:50 - Hospital Course Hospital Course: 27 year old male with a past medical history of idiopathic thrombocytopenia and an affective disorder was admitted with throbbing headache, fever, neck pain. Ct head was negative and a lumbar puncture was performed that showed CSF protein was elevated, sugar was normal, WBC with a neutrophil predominance, likely suggestive of a viral meningitis. Infectious disease was consulted and the pateint was was treated with IV vancomycin, ceftriaxone, acyclovir, and dexamethasone. CSF Cryptococcus, HSV1/2, and VDRL were all negative or undetected. Furthermore, blood cultures, urine culture negative, and Grp A strep throat culture were also negative. CSF cytology shows neutrophils, lymphocytes, and a few red blood cells. CSF gram stain, cultures were also negative. The pateint fever has resolved for the past 36 hours and his headache has improved. He was discharged with the below written instructions, prescriptions, and guidance. - Date & Time of H&P Date of H&P: 08/11/17 Time of H&P: 16:13 Discharge Exam - Head Exam Head Exam: NORMAL INSPECTION, NORMOCEPHALIC - Eye Exam Eye Exam: EOMI - ENT Exam ENT Exam: Mucous Membranes Moist, Normal Oropharynx - Neck Exam Neck exam: Normal Inspection - Respiratory Exam Respiratory Exam: Clear to PA & Lateral, NORMAL BREATHING PATTERN. absent: Accessory Muscle Use - Cardiovascular Exam Cardiovascular Exam: RRR, +S1, +S2 - GI/Abdominal Exam GI & Abdominal Exam: Normal Bowel Sounds. absent: Distended, Guarding - Extremities Exam Extremities exam: normal inspection - Neurological Exam Neurological exam: Alert, CN II-XII Intact, Oriented x3 - Psychiatric Exam Psychiatric exam: Normal Affect, Normal Mood - Skin Skin Exam: Dry, Intact, Normal Color, Warm Discharge Plan - Follow Up Plan Condition: FAIR Disposition: HOME/ ROUTINE Instructions: Headache, Adult, Marijuana Use and Addiction, Fever, Adult (DC) Additional Instructions: 1. Follow up with Dr. Camacho within 1 week of discharge 2. Maintain adequate hydration and rest, avoid strenuous excises for 1-2 weeks. Referrals: Jameel Camacho MD [Primary Care Provider] - <John Akins - Last Filed: 08/12/17 11:22> Provider - Provider Date of Admission: 08/08/17 22:45 Attending physician: John Akins MD Primary care physician: Jameel Camacho MD Hospital Course - Lab Results Lab Results: Micro Results 08/08/17 23:35 Cerebral Spinal Fluid Gram Stain - Final 08/08/17 23:35 Cerebral Spinal Fluid CSF Culture - Preliminary NO GROWTH AFTER 3 DAYS 08/08/17 23:26 Urine Urine Culture - Final No Growth (<1,000 CFU/ML) Most Recent Lab Values WBC 10.9 10^3/ul (4.5-11.0) D 08/11/17 07:00 RBC 4.89 10^6/uL (3.5-6.1) 08/11/17 07:00 Hgb 13.4 g/dL (14.0-18.0) L 08/11/17 07:00 Hct 40.0 % (42.0-52.0) L 08/11/17 07:00 MCV 81.8 fl (80.0-105.0) 08/11/17 07:00 MCH 27.4 pg (25.0-35.0) 08/11/17 07:00 MCHC 33.5 g/dl (31.0-37.0) 08/11/17 07:00 RDW 13.8 % (11.5-14.5) 08/11/17 07:00 Plt Count 168 10^3/uL (120.0-450.0) 08/11/17 07:00 MPV 11.0 fl (7.0-11.0) 08/11/17 07:00 Gran % 89.8 % (50.0-68.0) H 08/08/17 21:50 Lymph % (Auto) 4.9 % (22.0-35.0) L 08/08/17 21:50 [place] % (Auto) 4.8 % (1.0-6.0) 08/08/17 21:50 Eos % (Auto) 0.2 % (1.5-5.0) L 08/08/17 21:50 Baso % (Auto) 0.3 % (0.0-3.0) 08/08/17 21:50 Gran # 9.64 (1.4-6.5) H 08/08/17 21:50 Lymph # (Auto) 0.5 (1.2-3.4) L 08/08/17 21:50 [place] # (Auto) 0.5 (0.1-0.6) 08/08/17 21:50 Eos # (Auto) 0.0 (0.0-0.7) 08/08/17 21:50 Baso # (Auto) 0.03 K/mm3 (0.0-2.0) 08/08/17 21:50 Neutrophils % (Manual) 86 % (50.0-70.0) H 08/08/17 21:50 Band Neutrophils % 6 % (0-2) H 08/08/17 21:50 Lymphocytes % (Manual) 6 % (22.0-35.0) L 08/08/17 21:50 Monocytes % (Manual) 2 % (1.0-6.0) 08/08/17 21:50 Platelet Evaluation Normal (NORMAL) 08/08/17 21:50 Anisocytosis (manual) Slight 08/08/17 21:50 PT 12.8 SECONDS (9.4-12.5) H 08/11/17 07:00 INR 1.11 (0.93-1.08) H 08/11/17 07:00 APTT 27.7 Seconds (25.1-36.5) 08/08/17 21:50 pO2 48 mm/Hg (30-55) 08/09/17 01:45 VBG pH 7.38 (7.32-7.43) 08/09/17 01:45 VBG pCO2 43.0 (40-60) 08/09/17 01:45 VBG HCO3 25.4 mmol/l (21-28) 08/09/17 01:45 VBG Total CO2 26.7 mmol.L (22-28) 08/09/17 01:45 VBG O2 Sat (Calc) 89.6 % (40-65) H 08/09/17 01:45 VBG Base Excess 0.0 mmol/L (0.0-2.0) 08/09/17 01:45 VBG Potassium 4.0 mmol/L (3.6-5.2) 08/09/17 01:45 Sodium 140.0 mmol/L (132-148) 08/09/17 01:45 Chloride 108.0 mmol/L (98-107) H 08/09/17 01:45 Glucose 86 mg/dl (75-110) 08/09/17 01:45 Lactate 2.9 mmol/L (0.7-2.1) H 08/09/17 01:45 FiO2 21.0 % 08/09/17 01:45 Sodium 141 mmol/L (132-148) 08/11/17 07:00 Potassium 4.1 mmol/L (3.6-5.0) 08/11/17 07:00 Chloride 110 mmol/L (98-107) H 08/11/17 07:00 Carbon Dioxide 24 mmol/L (21-33) 08/11/17 07:00 Anion Gap 12 (10-20) 08/11/17 07:00 BUN 11 mg/dL (7-21) 08/11/17 07:00 Creatinine 0.9 mg/dl (0.8-1.5) 08/11/17 07:00 Est GFR ( Amer) > 60 08/11/17 07:00 Est GFR (Non-Af Amer) > 60 08/11/17 07:00 Random Glucose 113 mg/dL (70-110) H 08/11/17 07:00 Calcium 9.5 mg/dL (8.4-10.5) 08/11/17 07:00 Phosphorus 3.2 mg/dL (2.5-4.5) 08/10/17 06:30 Magnesium 1.8 mg/dL (1.7-2.2) 08/10/17 06:30 Total Bilirubin 0.2 mg/dL (0.2-1.3) 08/11/17 07:00 AST 31 U/L (17-59) 08/11/17 07:00 ALT 42 U/L (7-56) 08/11/17 07:00 Alkaline Phosphatase 45 U/L (38-126) 08/11/17 07:00 Total Protein 7.3 g/dL (5.8-8.3) 08/11/17 07:00 Albumin 3.5 g/dL (3.0-4.8) 08/11/17 07:00 Globulin 3.8 gm/dL 08/11/17 07:00 Albumin/Globulin Ratio 0.9 (1.1-1.8) L 08/11/17 07:00 Venous Blood Potassium 4.0 mmol/L (3.6-5.2) 08/09/17 01:45 Urine Color Straw (YELLOW) 08/08/17 23:26 Urine Appearance Clear (CLEAR) 08/08/17 23: Urine pH 8.0 (4.7-8.0) 08/08/17 23:26 Ur Specific [place] 1.015 (1.005-1.035) 08/08/17 23:26 Urine Protein Negative mg/dL (<30 mg/dL) 08/08/17 23:26 Urine Glucose (UA) Negative mg/dL (NEGATIVE) 08/08/17 23: Urine Ketones Negative mg/dL (NEGATIVE) 08/08/17 23:26 Urine Blood Negative (NEGATIVE) 08/08/17 23:26 Urine Nitrate Negative (NEGATIVE) 08/08/17 23: Urine Bilirubin Negative (NEGATIVE) 08/08/17 23:26 Urine Urobilinogen 0.2 E.U./dL (<1 E.U./dL) 08/08/17 23:26 Ur Leukocyte Esterase Negative Luc/uL (NEGATIVE) 08/08/17 23:26 Fluid Type Spinal fluid 08/08/17 23:35 CSF Volume 1 mL (0-1) 08/08/17 23:35 CSF Appearance Clear/colorless (CLEAR) 08/08/17 23:35 CSF WBC 383.9 /uL (0.0-5.0) H 08/08/17 23:35 CSF RBC 3.9 /uL (0.0-0.0) H 08/08/17 23:35 CSF Total Cell Counted 100 (0-0) H 08/08/17 23:35 CSF Neutrophils 88 % (0-0) H 08/08/17 23:35 CSF Lymphocytes 12.0 % (0-0) H 08/08/17 23:35 CSF Monos/Macrophages TEST NOT PERFORMED 08/08/17 23:35 CSF Comment TEST NOT PERFORMED 08/08/17 23:35 CSF Glucose 44 mg/dL (40-70) 08/08/17 23:35 CSF Total Protein 99.0 mg/dL (12-60) H 08/08/17 23:35 CSF VDRL Nonreactive (Nonreactive) 08/09/17 06:10 CSF Cryptococcus Ag Not detected (Not Detected) 08/09/17 06:10 Urine Opiates Screen Negative (NEGATIVE) 08/09/17 03:25 Urine Methadone Screen Negative (NEGATIVE) 08/09/17 03:25 Ur Barbiturates Screen Negative (NEGATIVE) 08/09/17 03:25 Ur Phencyclidine Scrn Negative (NEGATIVE) 08/09/17 03:25 Ur Amphetamines Screen Negative (NEGATIVE) 08/09/17 03:25 U Benzodiazepines Scrn Negative (NEGATIVE) 08/09/17 03:25 U Oth Cocaine Metabols Negative (NEGATIVE) 08/09/17 03:25 U Cannabinoids Screen Negative (NEGATIVE) 08/09/17 03:25 RPR Nonreactive (NONREACTIVE) 08/10/17 09:43 CMV Specimen Source Cerebrospinal fluid 08/09/17 06:10 CMV DNA Quant PCR <200 IU/mL 08/09/17 06:10 CMV Qnt PCR log IU/mL <2.30 Log IU/mL 08/09/17 06:10 HSV Source Description Csf 08/09/17 06:10 HSV I DNA PCR Not detected (Not Detected) 08/09/17 06:10 HSV II DNA PCR Not detected (Not Detected) 08/09/17 06:10 HIV 1&2 Antibody Screen Negative (NEGATIVE) 08/08/17 21:50 Influenza Typ A,B (EIA) Negative for flu a/b (NEGATIVE) 08/08/17 21:50 Grp A Beta Strep Ag Negative (NEGATIVE) 08/08/17 21:50 Attending/Attestation - Attestation I have personally seen and examined this patient.: Yes I have fully participated in the care of the patient.: Yes I have reviewed all pertinent clinical information, including history, physical exam and plan: Yes Notes (Text): 08/12/17 11:21 Medical record note made by the resident after discussion with my direction and input after the patient was personally seen and examined by me. I have reviewed the chart and agree that the record accurately reflects by personal performance of the history, physical exam, data review, and medical decision-making, in the course for the patient. I have also personally directed the plan of care. 27 year old male with a past medical history of idiopathic thrombocytopenia and an affective disorder was admitted with throbbing headache, fever, neck pain , CSF protein was elevated , sugar was normal, had WBC in CSF with Neutrophil, could be early aseptic meningitis , was treated with IV vancomycin/ceftriaxone and Acyclovir.CSF gram stain ,cultures are negative.CSF HSV is negative.Patient was evaluated by ID and antibiotics has been discontinued.Patient symptoms are likely due to aseptic meningititis.He is afebrile.Headache has improved.He is ambulatory.There is no Neuro deficit.He will be discharged home and will follow up with PCP Management plan was discussed in detail with patient. Education was provided.
[2017-08-11 20:21] LABS: SOURCE: CEREBROSPINAL FLUID
== END 2017-08-11 16:17 | disposition home or self-care (01) | DRG 888 ==
LOC: ED 20:44 → ERH 22:45 → 5RSO 08-09 01:22
PROVIDERS: ADMIT Internal Medicine; ATTEND Internal Medicine
PROC: 009U3ZX Drainage of Spinal Canal, Percutaneous Approach, Diagnostic (ICD-10-PCS; principal; 2017-08-08)
DX: G03.0 Nonpyogenic meningitis (principal); G43.909 Migraine, unspecified, not intractable, without status migrainosus; D69.3 Immune thrombocytopenic purpura; F39 Unspecified mood [affective] disorder; R04.0 Epistaxis; Z87.891 Personal history of nicotine dependence